=== PATIENT | male | born 1990 | race Caucasian/White ===

== ENCOUNTER → 2016-11-06 | Outpatient (CLI) | payer OTHER ==
[~2016-11-06] MED LIST: CLON1TAB3 PO; HYOS1TAB PO; NRN100 PO; ONDA4TAB10 SL; OXYC1TAB3 PO
--- NOTE | 2016-11-06 16:36 | DIAGNOSTIC IMAGING REPORT ---
LEFT CLAVICLE RADIOGRAPHS CLINICAL HISTORY: Left shoulder injury. COMPARISON: None FINDINGS: No acute fracture of the left clavicle is identified. Alignment of the left acromioclavicular joint is anatomic. IMPRESSION: No acute fracture of the left clavicle. Electronically signed by: Don Kruse M.D. 11/06/2016 4:34 PM Dictated Date/Time: 11/06/2016 4:31 PM
--- NOTE | 2016-11-06 16:37 | DIAGNOSTIC IMAGING REPORT ---
LEFT SHOULDER MIN 2 VIEWS ROUTINE CLINICAL HISTORY: Shoulder injury. COMPARISON: None FINDINGS: Alignment of the left shoulder is anatomic. There is no acute fracture. Minimal degenerative changes are present. IMPRESSION: No acute fracture or dislocation of the left shoulder. Electronically signed by: Don Kruse M.D. 11/06/2016 4:35 PM Dictated Date/Time: 11/06/2016 4:34 PM
== END | disposition home or self-care (01) ==
LOC: C.RAD 15:57
PROVIDERS: ATTEND Registered Nurse
DX: S49.92XA Unspecified injury of left shoulder and upper arm, initial encounter (principal); X58.XXXA Exposure to other specified factors, initial encounter

== ENCOUNTER 2017-05-04 18:19 | Emergency (ER) | payer BC, OTHER ==
[~2017-05-04] VITALS: Ht 172.7 cm; Wt 81.0 kg
[2017-05-04 18:28] VITALS: TEMP 36.7; Ht 172.7 cm; Wt 81.0 kg
[2017-05-04] MEDS ORDERED: NRN100 PO (18:36)
[2017-05-04] MEDS ORDERED: CLON1TAB3 PO (18:36)
[2017-05-04] MEDS ORDERED: IBUPROFEN 600 MG TAB PO STA (18:40)
[2017-05-04] MEDS ORDERED: OXYCODONE HCL IR 5 MG TAB (IMMEDIATE RELEASE) PO STA (18:40)
--- NOTE | 2017-05-04 20:01 | DIAGNOSTIC IMAGING REPORT ---
RIGHT FOREARM 2 VIEWS ROUTINE CLINICAL HISTORY: Right forearm pain status post trauma COMPARISON: None. DISCUSSION: No fractures or dislocations are visualized. IMPRESSION: No fractures identified. Electronically signed by: Johny Andersen M.D. 05/04/2017 8:00 PM Dictated Date/Time: 05/04/2017 7:59 PM
--- NOTE | 2017-05-04 20:02 | DIAGNOSTIC IMAGING REPORT ---
RIGHT HAND MIN 3 VIEWS ROUTINE CLINICAL HISTORY: Right hand pain status post trauma COMPARISON: 05/18/2016 DISCUSSION: The bony mineralization appears normal. No fractures or dislocations are visualized. There is no erosive disease. IMPRESSION: No fractures or dislocations identified. Electronically signed by: Johny Andersen M.D. 05/04/2017 8:00 PM Dictated Date/Time: 05/04/2017 8:00 PM
[2017-05-04] MEDS ORDERED: OXYC1TAB3 PO (20:21)
[2017-05-04] MEDS ORDERED: OXYCODONE IR HOME PACK PO ONE (20:48)
[2017-05-04 20:53] VITALS: BP 122/83; PULSE 74; O2SAT 98
--- NOTE | 2017-05-04 20:53 | EMERGENCY ROOM VISIT NOTE ---
History First contact with patient: 18:33 Chief Complaint: HAND PAIN/INJURY Stated Complaint: RIGHT THUMB, WRIST , LUMB FELL ON IT, WC History of Present Illness The patient is a 27 year old male who presents to the Emergency Room with complaints of an injury after a tree limb fell onto his right forearm, wrist and hand region. 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 As they were trimming some of the limbs off, it came backward and struck the patient. The patient reports that as time continued, his pain also continue to worsen. He now reports paresthesias or numbness of the fingers, as well as stiffness and difficulty flexing and extending the fingers. He denies any elbow or shoulder pain. The patient is [id number]. He rates his discomfort a 10 out of 10. He has not taken any medicine for the pain. Review of Systems 10 system review was performed and was negative except for pertinent positives and negatives as indicated in history of present illness Past Medical/Surgical History Medical Problems: (1) Thumb pain Family History Cancer Heart disease Social History Smoking Status: Never Smoker Alcohol Use: none Drug Use: none Marital Status: in relationship Housing Status: lives with family Occupation Status: unemployed Current/Historical Medications Scheduled Clonazepam (Klonopin), 1 TAB PO TID Gabapentin (Gabapentin), 200 MG PO TID Scheduled PRN Oxycodone Ir (Roxicodone Ir), 1-2 TAB PO Q4H PRN for Pain Allergies Coded Allergies: No Known Allergies (Unverified , 09/30/16) Physical Exam Vital Signs Date Time Temp Pulse Resp B/P (MAP) Pulse Ox O2 Delivery O2 Flow Rate FiO2 05/04/17 18:28 36.7 84 18 121/86 96 Physical Exam CONSTITUTIONAL: Healthy and well nourished. Alert and oriented X 3 with positive affect. Patient appears in moderate discomfort from pain. HEENT: Normocephalic, atraumatic. Pupils equal, round and reactive. NECK: Full active range of motion without discomfort. MUSCULOSKELETAL: Examination of the right upper extremity shows edema and a small abrasion over the dorsal distal third of the forearm. He also has generalized tenderness to palpation about the entire wrist and hand, focus mostly over the thumb region. No obvious deformities or puncture wounds noted. The patient has no tenderness to palpation of the phalanges. Capillary refill of the fingers is less than 2 seconds. INTEGUMENTARY: No rash or other significant dermatologic conditions noted. NEUROLOGIC: Right hand and fingers are grossly sensory intact. Medical Decision & Procedures ER Provider Diagnostic Interpretation: My interpretation of right forearm and hand x-rays does not show any acute fractures or dislocations. Radiologist reports were reviewed with concurrence. Medications Administered Medications (Trade) Dose Ordered Sig/Abhinav Route Start Time Stop Time Status Last Admin Dose Admin Oxycodone HCl (Roxicodone Immediate Rel Tab) 5 mg NOW STAT PO 05/04/17 18:40 05/04/17 18:42 DC 05/04/17 19:10 5 MG Ibuprofen (Motrin Tab) 600 mg NOW STAT PO 05/04/17 18:40 05/04/17 18:42 DC 05/04/17 19:10 600 MG ED Course Patient history and physical exam were performed. Nurse's notes were reviewed. Vital signs were reviewed and normal. The patient was administered OxyIR 5 mg and Motrin 600 mg. X-rays of the right forearm and hand were normal. The patient was encouraged to intermittently apply ice to areas of discomfort. A Velcro thumb spica splint was applied. The patient was instructed to follow-up with his Worker's Compensation approved orthopedic surgeon for further reevaluation and management. The patient was instructed to alternate ibuprofen and Tylenol for baseline pain relief. He received a home pack and prescription for OxyIR 5 mg as needed for breakthrough pain. No drinking alcohol or driving while taking OxyIR. The patient voiced understanding of all discharge instructions, was happy with plan of care, and rated his pain a 5 out of 10 at the conclusion of my exam. Medical Decision [place] Drug Monitoring Program Search Results: patient reviewed within database, no issues identified Impression Primary Impression: Contusion of right wrist Additional Impressions: Contusion of right hand Contusion of right forearm Work related injury Departure Information Prescriptions Oxycodone Ir (Roxicodone Ir) 5 Mg Tab 1-2 TAB PO Q4H Y for Pain, #15 TAB For Initial Treatment Prov: Santhosh Kinney PA 05/04/17 Referrals No Doctor, Assigned (PCP) Patient Instructions [facility] Problem Qualifiers
== END 2017-05-04 20:54 | disposition home or self-care (01) ==
LOC: C.EDB 18:21 → C.EDD 20:54
DX: S60.211A Contusion of right wrist, initial encounter (principal); S60.221A Contusion of right hand, initial encounter; S50.11XA Contusion of right forearm, initial encounter; Y99.0 Civilian activity done for income or pay; W20.8XXA Other cause of strike by thrown, projected or falling object, initial encounter

== ENCOUNTER 2017-07-25 12:07 | Emergency (ER) | payer OTHER ==
[~2017-07-25] VITALS: Ht 172.7 cm; Wt 85.8 kg
[~2017-07-25 12:07] MED LIST changes: -HYOS1TAB PO; -ONDA4TAB10 SL
[2017-07-25 12:09] VITALS: TEMP 37; Ht 172.7 cm; Wt 85.8 kg
[2017-07-25] MEDS ORDERED: KETOROLAC TROMETHAMINE 60 MG/2 ML VIAL IM ONE (12:30)
[2017-07-25] MEDS ORDERED: DEXAMETHASONE SOD INJ 4 MG/ML VIAL IM ONE (12:30)
--- NOTE | 2017-07-25 12:33 | EMERGENCY ROOM VISIT NOTE ---
History First contact with patient: 12:23 Chief Complaint: HIP PAIN Stated Complaint: L HIP/KNEE PAIN History of Present Illness The patient is a 27 year old male who presents to the Emergency Room with complaints of lower back pain radiating to his left hip and down his left leg. The patient was trying to lift a transmission last night when he felt a pull in his back. He also thinks that he felt a pop in the left knee. The knee hurts with weightbearing. He tried Tylenol for pain with minimal relief. He denies any numbness, tingling or weakness. No urinary or bowel incontinence. He does have a history of back problems. Review of Systems 6 system review negative. Please see pertinent positives in the history of present illness section. Past Medical/Surgical History Medical Problems: (1) Thumb pain Family History Cancer Heart disease Social History Smoking Status: Current Every Day Smoker Alcohol Use: none Drug Use: none Marital Status: in relationship Housing Status: lives with family Occupation Status: unemployed Current/Historical Medications Scheduled Clonazepam (Klonopin), 1 TAB PO TID Cyclobenzaprine Hcl (Flexeril), 10 MG PO TID Gabapentin (Gabapentin), 200 MG PO TID Methylprednisolone (Medrol Dosepak), 0 PO DAILY Scheduled PRN Oxycodone Ir (Roxicodone Ir), 1-2 TAB PO Q4H PRN for Pain Physical Exam Vital Signs Date Time Temp Pulse Resp B/P (MAP) Pulse Ox O2 Delivery O2 Flow Rate FiO2 07/25/17 14:59 77 16 111/70 97 07/25/17 12:09 37.0 76 18 139/92 98 Room Air Physical Exam Exam is limited due to the patient not cooperating VITALS: Vitals are noted on the nurse's note and reviewed by myself. Vital signs stable. GENERAL: 27-year-old male lying on his right side,, in no acute distress, SKIN: The skin was without rashes, erythema, edema, or bruising. HEAD: Normocephalic atraumatic. MUSCULOSKELETAL: Mild tenderness over the lumbar spinous processes and left SI joint. Negative straight leg test. Pain with flexion and extension of the left knee. No edema noted. No ligamentous instability. Distal pulses intact. No tenderness to palpation over the left hip. NEURO: Patient was alert and oriented to person place and time. Normal sensation to touch. No focal neurological deficits. Medical Decision & Procedures ER Provider Diagnostic Interpretation: lumbar xray IMPRESSION: Normal lumbar spine. Knee x-ray IMPRESSION: No acute osseous injury of the left knee. Medications Administered Medications (Trade) Dose Ordered Sig/Abhinav Route Start Time Stop Time Status Last Admin Dose Admin Ketorolac Tromethamine (Toradol Inj) 60 mg ONE ONCE IM 07/25/17 12:30 07/25/17 12:31 DC 07/25/17 12:37 60 MG Dexamethasone Sodium Phosphate (Decadron Inj) 10 mg NOW ONCE IM 07/25/17 12:30 07/25/17 12:31 DC 07/25/17 12:30 10 MG ED Course The patient was seen and examined He was given Toradol 60 mg IM and Decadron 10 mg IM Imaging was performed and reviewed Upon reevaluation, the patient was sleeping. I woke him and we reviewed his workup. He voiced understanding. I searched the patient's prescription records in the [place] Discharge instructions were reviewed, the patient was discharged in good condition Medical Decision Differential diagnosis: Spine fracture, ligamentous injury, subluxation, spondylolisthesis, spondylosis, herniated disc, contusion, muscle spasm, knee contusion, fracture, ligamentous injury This patient is a 27-year-old male that presents the emergency department with lower back pain down his left leg and pain in the left knee after lifting a heavy object yesterday. He has chronic back problems. His exam was unremarkable. There are no signs of cauda equina syndrome. He reports not having imaging in the last several years. Imaging of the back was performed. No allergies were noted. Imaging of the left knee also were performed, and normal. The patient was given a short course of narcotics and muscle relaxant. He was instructed to not perform any strenuous activity until his back is feeling better. He'll follow-up with his primary care physician for recheck. This chart was completed in part utilizing [employer] Speech Voice Recognition software. Attempts were made to minimize the grammatical errors, random word insertions, pronoun errors and incomplete sentences. Any formal questions or concerns about the content, text or information contained within the body of this dictation should be directly addressed to the provider for clarification. [place] Drug Monitoring Program Search Results: patient reviewed within database Medication Reconcilliation Current Medication List: was personally reviewed by me Impression Primary Impression: Back pain Departure Information Dispostion Home / Self-Care Condition GOOD Prescriptions Methylprednisolone (MEDROL DOSEPAK) 4 Mg Jose 0 PO DAILY, #1 PKT Prov: Zandra Moralez PA-C 07/25/17 Oxycodone Ir (Roxicodone Ir) 5 Mg Tab 1-2 TAB PO Q4H Y for Pain, #12 TAB For Initial Treatment Prov: Zandra Moralez PA-C 07/25/17 Cyclobenzaprine Hcl (FLEXERIL) 10 Mg Tab 10 MG PO TID for Muscle Spasms, #30 TAB Prov: Zandra Moralez PA-C 07/25/17 Referrals No Doctor, Assigned (PCP) Patient Instructions Low Back Pain Self Care, My [facility] Additional Instructions Tylenol and ibuprofen for pain Ibuprofen 800 mg and/or Tylenol 1000 mg every 8 hours. You may also alternate these medications for more effective pain relief: Ibuprofen --4 HRS--> Tylenol --4 HRS--> ibuprofen --4 HRS--> Tylenol .... Oxycodone for severe pain Oxycodone Immediate Release (OxyIR) 5mg: Take 1-2 pills every four hours for pain. Avoid alcohol, operating machinery or dangerous equipment, working on ladders or roofs, DRIVING, or situations where being under the influence may be dangerous. It is recommended to use an [id number] stool softener such as Colace, 100mg twice daily while taking this medication to avoid constipation. Flexeril every 8 hours as needed for muscle spasms. Please do not drink alcohol or drive or taking this medication. Ice over the lower back over the next 48 hours. Lying on a hard surface may help with the pain. No strenuous activity until your back is feeling better Return to the emergency department if you have any of the following symptoms: -Problems with urination -Weakness in your legs -Chest pain -Shortness of breath -Worsening pain Please follow-up with your primary care physician next 2-3 days.
--- NOTE | 2017-07-25 14:16 | DIAGNOSTIC IMAGING REPORT ---
L KNEE 3 VIEWS CLINICAL HISTORY: 27 years-old Male presenting with L knee pain, hurt knee lifting a heavy object. TECHNIQUE: Frontal, lateral, and sunrise views of the left knee were obtained. COMPARISON: None. FINDINGS: No acute fracture or malalignment. Trace knee joint effusion may be present. No patellar subluxation. No radiographic soft tissue abnormality. IMPRESSION: No acute osseous injury of the left knee. Electronically signed by: Srinivasa Henson M.D. 07/25/2017 2:14 PM Dictated Date/Time: 07/25/2017 2:14 PM
[2017-07-25] MEDS ORDERED: METH4PAK PO (14:35)
[2017-07-25] MEDS ORDERED: OXYC1TAB3 PO (14:35)
[2017-07-25] MEDS ORDERED: CYCL10TA6 PO (14:35)
--- NOTE | 2017-07-25 14:35 | DIAGNOSTIC IMAGING REPORT ---
L-SPINE MIN 4 VIEWS ROUTINE CLINICAL HISTORY: 27 years-old Male presenting with lumbar back pain down L leg. TECHNIQUE: Frontal, lateral, bilateral oblique, and coned in lateral views lumbar spine were obtained. COMPARISON: 06/04/2015. FINDINGS: Normal lumbar lordosis. Vertebral bodies maintain normal height and alignment. Intervertebral disc spaces preserved. No radiographic evidence of acute fracture or subluxation. No significant degenerative change. No radiographic evidence of neural foraminal narrowing. No scoliosis. Nonobstructive bowel gas pattern. IMPRESSION: Normal lumbar spine. Electronically signed by: Srinivasa Henson M.D. 07/25/2017 2:34 PM Dictated Date/Time: 07/25/2017 2:32 PM
[2017-07-25 14:59] VITALS: BP 111/70; PULSE 77; O2SAT 97
== END 2017-07-25 14:59 | disposition home or self-care (01) ==
LOC: C.EDB 12:07 → C.EDD 14:59
DX: M54.5 Low back pain (principal); F17.200 Nicotine dependence, unspecified, uncomplicated; Z79.899 Other long term (current) drug therapy; Z80.9 Family history of malignant neoplasm, unspecified; Z82.49 Family history of ischemic heart disease and other diseases of the circulatory system

== ENCOUNTER 2017-09-27 13:00 | Emergency (ER) | payer OTHER ==
[~2017-09-27] VITALS: Ht 172.7 cm; Wt 90.0 kg
[2017-09-27 13:03] VITALS: TEMP 36.5; Ht 172.7 cm; Wt 90.0 kg
[2017-09-27] MEDS ORDERED: MoRPHine SULFATE 4 MG/ML 1 ML CARP\\VIAL IV STA ×2 (13:47→15:32)
[2017-09-27] MEDS ORDERED: ONDANSETRON INJ 2 MG/ML 2 ML VIAL IV STA (13:47)
[2017-09-27] MEDS ORDERED: OPTIRAY 320 IV PRN (14:00)
[2017-09-27 14:25] LABS: URINE APPEARANCE CLEAR (CLEAR); URINE BILIRUBIN NEG (NEG); URINE COLOR YELLOW; URINE NITRITE NEG (NEG); URINE SPECIFIC GRAVITY 1.009 (1.000-1.030); UROBILINOGEN NEG (NEG)
[2017-09-27 14:27] LABS: BASO % 0.5 %; BASO ABS # 0.03 K/uL (0-0.2); COMPLETE YES; EOS % 2.2 %; HEMATOCRIT 45.6 % (42-52); IG% 0.6 %; LYMPH % 20.9 %; LYMPH ABS # 1.36 K/uL (1.2-3.4); MEAN CELL VOLUME 89.6 fL (80-100); MEAN CORPUSCULAR HEMOGLOBIN 31.2 pg (25-34); MEAN CORPUSCULAR HGB CONC 34.9 g/dl (32-36); MEAN PLATELET VOLUME 10.1 fL (7.4-10.4); MONO % 6.9 %; NEUT % 68.9 %; PLATELET COUNT 224 K/uL (130-400); RED BLOOD COUNT 5.09 M/uL (4.7-6.1); WHITE BLOOD COUNT 6.51 K/uL (4.8-10.8)
[2017-09-27 14:31] LABS: MANUAL MICROSCOPIC REQUIRED? NO; REVIEW REQ? NO
[2017-09-27 14:44] LABS: BUN/CREATININE RATIO 13.6 (10-20); CREATININE 1.03 mg/dl (0.60-1.40); POTASSIUM 3.4 mmol/L (3.5-5.1)
--- NOTE | 2017-09-27 15:28 | DIAGNOSTIC IMAGING REPORT ---
CT ABD/PELVIS IV CONTRAST ONLY CLINICAL HISTORY: Left lower quadrant abdominal pain. Nausea vomiting diarrhea. Left flank pain. COMPARISON STUDY: 09/30/2016 TECHNIQUE: Following the IV administration of 92 mL of Optiray-320, CT scan of the abdomen and pelvis was performed from the lung bases to the proximal femurs. Images are reviewed in the axial, sagittal, and coronal planes. IV contrast was administered without complication. A dose lowering technique was utilized adhering to the principles of ALARA. CT DOSE: 732.70 mGycm FINDINGS: Lower chest: There are bibasal atelectatic changes. Liver: The contrast-enhanced liver is normal in size, contour, and attenuation. There is no intrahepatic biliary ductal dilatation. The hepatic veins and portal veins are patent. Gallbladder: Unremarkable. Spleen: Normal in size and attenuation. Pancreas: Unremarkable. Adrenal glands: Unremarkable. Kidneys: There is a 9 mm left renal cyst. There is no hydronephrosis. Bowel: There are no transition zones indicate bowel obstruction. The appendix appears normal. A fluid collection within the rectosigmoid, likely represents eccentric liquefied stool as opposed to a fluid collection within the colonic wall. There are no findings to indicate acute diverticulitis. Equivocal pericolonic fat stranding at the level of the distal descending colon is too subtle to be considered a true finding. Peritoneum: There is no intraperitoneal free air or abdominal ascites. Vasculature: The abdominal aorta is normal in course and caliber. Adenopathy: None. Pelvic viscera: The bladder, and pelvic viscera are unremarkable. Skeletal structures: No destructive osseous lesions are seen. IMPRESSION: 1. No evidence of bowel obstruction. No evidence of free air. 2. Normal appendix 3. No evidence of hydronephrosis. No ureteral or bladder calculi are visualized 4. The bowel wall within the descending colon and sigmoid is at the upper limits of normal in thickness. Equivocal subtle pericolonic fat stranding at the level of the distal descending colon is too subtle to be considered a definite finding. There is currently no convincing evidence of acute diverticulitis. Electronically signed by: Johny Andersen M.D. 09/27/2017 3:27 PM Dictated Date/Time: 09/27/2017 3:20 PM
[2017-09-27] MEDS ORDERED: METR-163 PO (16:00)
[2017-09-27] MEDS ORDERED: OXYC1TAB3 PO (16:00)
[2017-09-27] MEDS ORDERED: CIPR-255 PO (16:00)
[2017-09-27] MEDS ORDERED: HYDROmorphone INJ 0.5 MG/0.5 ML SYR IV STA (16:01)
[2017-09-27] MEDS ORDERED: CIPROFLOXACIN 500 MG TAB PO STA (16:02)
[2017-09-27] MEDS ORDERED: METRONIDAZOLE 250 MG TAB PO STA (16:02)
--- NOTE | 2017-09-27 16:12 | EMERGENCY ROOM VISIT NOTE ---
History First contact with patient: 13:39 Chief Complaint: ABDOMINAL PAIN Stated Complaint: L ABD PAIN, VOMITING, BLOOD IN STOOL/VOMIT History of Present Illness The patient is a 27 year old male who presents to the Emergency Room with complaints of severe and constant left lower quadrant pain. The patient reports that he did not feel well over the weekend, feeling like he was going to get sick. He denied any upper respiratory symptoms, diarrhea or urinary symptoms. While at work this morning, he reports abrupt onset of left lower quadrant pain that is worsened with movement and bending over. He also noticed some blood in his stool this morning, and has had multiple episodes of nausea, vomiting and diarrhea this morning. The patient does report a prior history of diverticulosis. His last colonoscopy was in 2009 when he was here for diverticulosis. The patient also reports a sensation like he has to urinate all the time. He reports that the pain seems to be bouncing from the left lower abdomen to lower center of the abdomen and back. The pain does not radiate into the back or chest. The patient currently rates his discomfort a 7 out of 10. He reports that the pain is similar to the pain he had the last time he had diverticulosis. Review of Systems HEENT: Denies dizziness, visual problems, hearing loss, tinnitus. Denies difficulty swallowing or oral lesions. PULMONARY: Denies cough, shortness of breath, sputum production or hemoptysis. CARDIOVASCULAR: Denies chest pain, palpitations, dyspnea on exertion, orthopnea or peripheral edema. GASTROINTESTINAL: See history of present illness. GENITOURINARY: Denies dysuria, but does report increased frequency since this morning. NEUROLOGIC: Denies history of epilepsy, CVA, TIA or chronic headaches. MUSCULOSKELETAL: Denies history of joint tenderness/swelling. SKIN: Denies rashes or lesions. PSYCHIATRIC: Denies history of depression or mental illness. ENDOCRINE: Denies history of diabetes or thyroid disorders. Past Medical/Surgical History Medical Problems: (1) Thumb pain Family History Cancer Heart disease Social History Smoking Status: Current Every Day Smoker Alcohol Use: none Drug Use: none Marital Status: in relationship Housing Status: lives with family Occupation Status: unemployed Current/Historical Medications Scheduled Ciprofloxacin Hcl (Cipro), 500 MG PO BID Clonazepam (Klonopin), 1 TAB PO TID Gabapentin (Gabapentin), 100 MG PO TID Metronidazole (Flagyl), 500 MG PO TID Scheduled PRN Oxycodone Ir (Roxicodone Ir), 1-2 TAB PO Q4H PRN for Pain Physical Exam Vital Signs Date Time Temp Pulse Resp B/P (MAP) Pulse Ox O2 Delivery O2 Flow Rate FiO2 09/27/17 15:22 62 18 117/72 94 Room Air 09/27/17 13:03 36.5 78 18 127/84 98 Room Air Physical Exam CONSTITUTIONAL: Healthy and well nourished. Alert and oriented X 3 with positive affect. Patient appears in moderate discomfort. HEENT: Normocephalic, atraumatic. Pupils equal, round and reactive. Sclerae icterus or conjunctival pallor. NECK: Full active range of motion without discomfort. RESPIRATORY: Clear to auscultation bilaterally with no wheezing, crackles, rhonchi or stridor. CARDIOVASCULAR: Regular rate and rhythm with no murmurs, rubs or gallops. GASTROINTESTINAL: Bowel sounds present in all quadrants. Patient has left lower quadrant tenderness to palpation without rigidity, guarding or rebound. Negative CVA tenderness. Negative McBurney's point tenderness. MUSCULOSKELETAL: Full range of motion of all joints without discomfort. INTEGUMENTARY: No rash or other significant dermatologic conditions noted. HEMATOLOGIC: No ecchymosis or petechiae noted. NEUROLOGIC: No focal neurologic deficits noted. Medical Decision & Procedures ER Provider Diagnostic Interpretation: CT of the abdomen and pelvis with IV contrast only shows an acute colitis of the descending colon without convincing evidence for diverticulitis. There is an equivocal subtle pericolonic fat stranding at the level of the distal descending colon. Appendix appears normal, and no evidence of bowel obstruction or free air. Radiologist report is as follows: CT ABD/PELVIS IV CONTRAST ONLY CLINICAL HISTORY: Left lower quadrant abdominal pain. Nausea vomiting diarrhea. Left flank pain. COMPARISON STUDY: 09/30/2016 TECHNIQUE: Following the IV administration of 92 mL of Optiray-320, CT scan of the abdomen and pelvis was performed from the lung bases to the proximal femurs. Images are reviewed in the axial, sagittal, and coronal planes. IV contrast was administered without complication. A dose lowering technique was utilized adhering to the principles of ALARA. CT DOSE: 732.70 mGycm FINDINGS: Lower chest: There are bibasal atelectatic changes. Liver: The contrast-enhanced liver is normal in size, contour, and attenuation. There is no intrahepatic biliary ductal dilatation. The hepatic veins and portal veins are patent. Gallbladder: Unremarkable. Spleen: Normal in size and attenuation. Pancreas: Unremarkable. Adrenal glands: Unremarkable. Kidneys: There is a 9 mm left renal cyst. There is no hydronephrosis. Bowel: There are no transition zones indicate bowel obstruction. The appendix appears normal. A fluid collection within the rectosigmoid, likely represents eccentric liquefied stool as opposed to a fluid collection within the colonic wall. There are no findings to indicate acute diverticulitis. Equivocal pericolonic fat stranding at the level of the distal descending colon is too subtle to be considered a true finding. Peritoneum: There is no intraperitoneal free air or abdominal ascites. Vasculature: The abdominal aorta is normal in course and caliber. Adenopathy: None. Pelvic viscera: The bladder, and pelvic viscera are unremarkable. Skeletal structures: No destructive osseous lesions are seen. IMPRESSION: 1. No evidence of bowel obstruction. No evidence of free air. 2. Normal appendix 3. No evidence of hydronephrosis. No ureteral or bladder calculi are visualized 4. The bowel wall within the descending colon and sigmoid is at the upper limits of normal in thickness. Equivocal subtle pericolonic fat stranding at the level of the distal descending colon is too subtle to be considered a definite finding. There is currently no convincing evidence of acute diverticulitis. Laboratory Results 09/27/17 14:00 Red Blood Count 5.09, Mean Corpuscular Volume 89.6, Mean Corpuscular Hemoglobin 31.2, Mean Corpuscular Hemoglobin Concent 34.9, Mean Platelet Volume 10.1, Neutrophils (%) (Auto) 68.9, Lymphocytes (%) (Auto) 20.9, Monocytes (%) (Auto) 6.9, Eosinophils (%) (Auto) 2.2, Basophils (%) (Auto) 0.5, Neutrophils # (Auto) 4.49, Lymphocytes # (Auto) 1.36, Monocytes # (Auto) 0.45, Eosinophils # (Auto) 0.14, Basophils # (Auto) 0.03 09/27/17 14:00 Test 09/27/17 14:00 White Blood Count 6.51 K/uL (4.8-10.8) Red Blood Count 5.09 M/uL (4.7-6.1) Hemoglobin 15.9 g/dL (14.0-18.0) Hematocrit 45.6 % (42-52) Mean Corpuscular Volume 89.6 fL (80-100) Mean Corpuscular Hemoglobin 31.2 pg (25-34) Mean Corpuscular Hemoglobin Concent 34.9 g/dl (32-36) Platelet Count 224 K/uL (130-400) Mean Platelet Volume 10.1 fL (7.4-10.4) Neutrophils (%) (Auto) 68.9 % Lymphocytes (%) (Auto) 20.9 % Monocytes (%) (Auto) 6.9 % Eosinophils (%) (Auto) 2.2 % Basophils (%) (Auto) 0.5 % Neutrophils # (Auto) 4.49 K/uL (1.4-6.5) Lymphocytes # (Auto) 1.36 K/uL (1.2-3.4) Monocytes # (Auto) 0.45 K/uL (0.11-0.59) Eosinophils # (Auto) 0.14 K/uL (0-0.5) Basophils # (Auto) 0.03 K/uL (0-0.2) RDW Standard Deviation 47.4 fL (36.4-46.3) RDW Coefficient of Variation 14.3 % (11.5-14.5) Immature Granulocyte % (Auto) 0.6 % Immature Granulocyte # (Auto) 0.04 K/uL (0.00-0.02) Urine Color YELLOW Urine Appearance CLEAR (CLEAR) Urine pH 6.0 (4.5-7.5) Urine Specific [place] 1.009 (1.000-1.030) Urine Protein NEG (NEG) Urine Glucose (UA) NEG (NEG) Urine Ketones NEG (NEG) Urine Occult Blood NEG (NEG) Urine Nitrite NEG (NEG) Urine Bilirubin NEG (NEG) Urine Urobilinogen NEG (NEG) Urine Leukocyte Esterase NEG (NEG) Anion Gap 10.0 mmol/L (3-11) Est Creatinine Clear Calc Drug Dose 117.4 ml/min Estimated GFR () 114.8 Estimated GFR (Non- 99.1 BUN/Creatinine Ratio 13.6 (10-20) Calcium Level 9.0 mg/dl (8.5-10.1) Total Bilirubin 0.5 mg/dl (0.2-1) Direct Bilirubin 0.1 mg/dl (0-0.2) Aspartate Amino Transf (AST/SGOT) 26 U/L (15-37) Alanine Aminotransferase (ALT/SGPT) 31 U/L (12-78) Alkaline Phosphatase 58 U/L (45-117) Total Protein 8.0 gm/dl (6.4-8.2) Albumin 4.4 gm/dl (3.4-5.0) Lipase 78 U/L (73-393) The above labs were reviewed and were grossly normal. Medications Administered Medications (Trade) Dose Ordered Sig/Abhinav Route Start Time Stop Time Status Last Admin Dose Admin Ondansetron HCl (Zofran Inj) 4 mg NOW STAT IV 09/27/17 13:47 09/27/17 13:51 DC 09/27/17 13:47 4 MG Morphine Sulfate (MoRPHine SULFATE INJ) 4 mg NOW STAT IV 09/27/17 13:47 09/27/17 13:51 DC 09/27/17 13:47 4 MG Morphine Sulfate (MoRPHine SULFATE INJ) 4 mg NOW STAT IV 09/27/17 15:32 09/27/17 15:33 DC 09/27/17 15:32 4 MG ED Course Patient history and physical exam were performed. Nurse's notes were reviewed. Vital signs were reviewed and were normal. The patient appears in moderate discomfort, and is nauseated. I did suggest performing a CT scan of the abdomen and pelvis, and initially recommended both oral and IV contrast. The patient reports that he is too nauseated to tolerate oral contrast. IV access was established, and labs were drawn. The patient was administered IV morphine and Zofran. Review of labs does not show any acute findings. CT of the abdomen and pelvis with IV contrast shows a descending colitis with no convincing evidence for diverticulitis. The patient was administered an additional IV morphine after returning from CT, and IV Dilaudid prior to discharge with persistent pain. The case was further discussed with Dr. Suárez, ED attending physician, who suggested treatment with Cipro and Flagyl. Findings were discussed with the patient. The patient was administered Cipro 500 mg and Flagyl 500 mg, and will be provided prescriptions for the same and OxyIR 5 mg, dispensed #15 with no refills. The patient was encouraged to follow-up with his PCP within the next 48 hours for recheck. Return to the emergency department for any progressively worsening pain or fever. The patient voiced understanding of all discharge instructions, was happy with plan of care, and rated his discomfort a 5 out of 10 at the conclusion of my exam. Medical Decision As indicated in the previous section, the patient does have an acute colitis of the descending colon with equivocal pericolonic fat stranding. The patient will be treated with Cipro and Flagyl. I do feel that the patient is safe for outpatient management. CT does not show evidence for free air, obstruction or appendicitis. I do not suspect inguinal hernia, testicular torsion or musculoskeletal etiologies. Urinalysis is not suggestive of infection, and there is no hematuria to suggest urinary tract etiology. [employer] Monitoring Program Search Results: patient reviewed within database, no issues identified Medication Reconcilliation Current Medication List: was personally reviewed by me Blood Pressure Screening Patient's blood pressure: Normal blood pressure Impression Primary Impression: Acute colitis Departure Information Prescriptions Metronidazole (Flagyl) 500 Mg Tab 500 MG PO TID for Pain for 10 Days, #30 TAB For Initial Treatment Prov: Santhosh Kinney PA 09/27/17 Ciprofloxacin Hcl (CIPRO) 500 Mg Tab 500 MG PO BID for 10 Days, #20 TAB Prov: Santhosh Kinney PA 09/27/17 Oxycodone Ir (Roxicodone Ir) 5 Mg Tab 1-2 TAB PO Q4H Y for Pain, #15 TAB For Initial Treatment Prov: Santhosh Kinney PA 09/27/17 Referrals No Doctor, Assigned (PCP) Patient Instructions My [facility]
[2017-09-27 16:24] VITALS: BP 134/91; PULSE 64; O2SAT 97
== END 2017-09-27 16:41 | disposition home or self-care (01) ==
LOC: C.EDB 13:02 → C.EDC 16:41
DX: K52.9 Noninfective gastroenteritis and colitis, unspecified (principal); F17.200 Nicotine dependence, unspecified, uncomplicated; Z98.890 Other specified postprocedural states

== ENCOUNTER 2017-10-18 15:28 | Inpatient (IN) | payer OTHER ==
[~2017-10-18] VITALS: Ht 172.7 cm; Wt 84.9 kg
[~2017-10-18 15:28] MED LIST changes: +CIPR-255 PO; -CLON1TAB3 PO; +OXYC-90 PO; -OXYC1TAB3 PO
--- NOTE | 2017-10-18 16:07 | EMERGENCY ROOM VISIT NOTE ---
History First contact with patient: 15:43 Chief Complaint: ABDOMINAL PAIN Stated Complaint: STOMACH PAIN,DIARRHEA,VOMITING History of Present Illness The patient is a 27 year old male who presents to the Emergency Room with complaints of nausea, vomiting, diarrhea and abdominal pain that started a few hours prior to arrival. The patient describes the pain as a sharp, stabbing, constant pain in the left lower abdomen. He has not taken anything for the pain. He denies any blood in his stool. He felt hot and cold earlier. He did not take his temperature at home. The patient reports a history of diverticulitis. He just finished antibiotics 1 week ago. He denies any sick contacts. Review of Systems 10 system review performed and negative unless noted in HPI or below Past Medical/Surgical History Medical Problems: (1) Abdominal pain (2) Diarrhea (3) Nausea and vomiting (4) Thumb pain Diverticulitis Family History Cancer Heart disease Social History Smoking Status: Current Every Day Smoker Alcohol Use: none Drug Use: none Marital Status: in relationship Housing Status: lives with family Occupation Status: unemployed Current/Historical Medications Scheduled Gabapentin (Neurontin), 100 MG PO TID Scheduled PRN Clonazepam (Klonopin), 1 MG PO TID PRN for Anxiety Physical Exam Vital Signs Date Time Temp Pulse Resp B/P (MAP) Pulse Ox O2 Delivery O2 Flow Rate FiO2 10/18/17 19:45 36.7 72 16 110/69 96 Room Air 10/18/17 17:32 70 114/71 98 10/18/17 15:40 36.7 84 16 116/84 97 Room Air Physical Exam VITALS: Vitals are noted on the nurse's note and reviewed by myself. Vital signs stable. GENERAL: 27-year-old male, mildly acutely ill in appearance. SKIN: The skin was without rashes, erythema, edema, or bruising. HEAD: Normocephalic atraumatic. MOUTH: Mucous membranes slightly dry HEART: Regular rate and rhythm without murmurs gallops or rubs. LUNGS: Clear to auscultation bilaterally without wheezes, rales or rhonchi. No accessory muscle use. ABDOMEN: Bowel sounds present, but hypoactive. Tenderness to palpation in the left lower quadrant. No guarding or rebound tenderness. MUSCULOSKELETAL: No muscle atrophy, erythema, or edema noted. Strength 5/5 throughout. NEURO: Patient was alert and oriented to person place and time. Normal sensation to touch. No focal neurological deficits. Medical Decision & Procedures ER Provider Diagnostic Interpretation: Abdominal x-rays Patient Name: MONIQUE SAMANIEGO Unit Number: [id number] Dictated: 10/18/171727 Transcribed: 10/18/171727 EV Printed Date/Time: [~ rep prt dt]/[~ rep prt tm] [~ rep ct labl] - [~ rep ct ivnm] [facility] Radiology Department [place] [id number] Dictated: 10/18/171727 Transcribed: 10/18/171727 EV Printed Date/Time: [~ rep prt dt]/[~ rep prt tm] [~ rep ct labl] - [~ rep ct ivnm] IMPRESSION: 1. No active disease in the chest. 2. Nonobstructed abdominal bowel gas pattern. Electronically signed by: Dorian Mckinney M.D. 10/18/2017 5:30 PM Dictated Date/Time: 10/18/2017 5:28 PM The status of this report is Signed. Draft = Not yet reviewed or approved by Radiologist. Signed = Reviewed and approved by Radiologist. <AttendingPhy></AttendingPhy> <FamilyPhy>No Doctor, Assigned</FamilyPhy> < PrimaryPhy>No Doctor, Assigned</PrimaryPhy> <UnitNumber>[id number]</UnitNumber> <VisitNumber>[id number]</VisitNumber> <PatientName>MONIQUE SAMANIEGO</PatientName> <DateOfBirth>1990</DateOfBirth> <Location>C.EDB</Location> <ServiceDate></ServiceDate> <MNE>ESINDI</MNE> <OrderingPhy>Zandra Moralez PA-C</ OrderingPhy> <OrderingPhyMNE>f rep ord dr hall</OrderingPhyMNE> <DictatingPhyMNE> f rep dict dr hall</DictatingPhyMNE> <CCListMNE>f rep ct mne</CCListMNE> < AdmittingPhyMNE>f pt admit dr hall</AdmittingPhyMNE> <AttendingPhyMNE>f pt attend dr hall</AttendingPhyMNE> <ConsultingPhyMNE>f pt consult dr hall</ConsultingPhyMNE> <FamilyPhyMNE>f pt fam dr hall</FamilyPhyMNE> <OtherPhyMNE>f pt other dr hall</OtherPhyMNE> < PrimaryPhyMNE>f pt prim care dr hall</PrimaryPhyMNE> <ReferringPhyMNE>f pt referring dr hall</ReferringPhyMNE> CT abdomen and pelvis with IV contrast IMPRESSION: There are no acute infectious or inflammatory findings in the abdomen or pelvis. Electronically signed by: Dorian Mckinney M.D. 10/18/2017 6:31 PM Dictated Date/Time: 10/18/2017 6:27 PM The status of this report is Signed. Draft = Not yet reviewed or approved by Radiologist. Signed = Reviewed and approved by Radiologist. <AttendingPhy></AttendingPhy> <FamilyPhy>No Doctor, Assigned</FamilyPhy> < PrimaryPhy>No Doctor, Assigned</PrimaryPhy> <UnitNumber>[id number]</UnitNumber> <VisitNumber>[id number]</VisitNumber> <PatientName>MONIQUE SAMANIEGO Laboratory Results 10/18/17 16:18 Red Blood Count 5.20, Mean Corpuscular Volume 91.9, Mean Corpuscular Hemoglobin 31.5, Mean Corpuscular Hemoglobin Concent 34.3, Mean Platelet Volume 10.4, Neutrophils (%) (Auto) 84.9, Lymphocytes (%) (Auto) 9.1, Monocytes (%) (Auto) 4.5, Eosinophils (%) (Auto) 0.7, Basophils (%) (Auto) 0.2, Neutrophils # (Auto) 10.87, Lymphocytes # (Auto) 1.17, Monocytes # (Auto) 0.58, Eosinophils # (Auto) 0.09, Basophils # (Auto) 0.03 10/18/17 16:18 Test 10/18/17 16:18 10/18/17 18:36 10/18/17 19:37 White Blood Count 12.82 K/uL (4.8-10.8) Red Blood Count 5.20 M/uL (4.7-6.1) Hemoglobin 16.4 g/dL (14.0-18.0) Hematocrit 47.8 % (42-52) Mean Corpuscular Volume 91.9 fL (80-100) Mean Corpuscular Hemoglobin 31.5 pg (25-34) Mean Corpuscular Hemoglobin Concent 34.3 g/dl (32-36) Platelet Count 219 K/uL (130-400) Mean Platelet Volume 10.4 fL (7.4-10.4) Neutrophils (%) (Auto) 84.9 % Lymphocytes (%) (Auto) 9.1 % Monocytes (%) (Auto) 4.5 % Eosinophils (%) (Auto) 0.7 % Basophils (%) (Auto) 0.2 % Neutrophils # (Auto) 10.87 K/uL (1.4-6.5) Lymphocytes # (Auto) 1.17 K/uL (1.2-3.4) Monocytes # (Auto) 0.58 K/uL (0.11-0.59) Eosinophils # (Auto) 0.09 K/uL (0-0.5) Basophils # (Auto) 0.03 K/uL (0-0.2) RDW Standard Deviation 49.3 fL (36.4-46.3) RDW Coefficient of Variation 14.5 % (11.5-14.5) Immature Granulocyte % (Auto) 0.6 % Immature Granulocyte # (Auto) 0.08 K/uL (0.00-0.02) Anion Gap 7.0 mmol/L (3-11) Est Creatinine Clear Calc Drug Dose 109.9 ml/min Estimated GFR () 108.4 Estimated GFR (Non- 93.6 BUN/Creatinine Ratio 16.8 (10-20) Calcium Level 9.5 mg/dl (8.5-10.1) Total Bilirubin 0.6 mg/dl (0.2-1) Aspartate Amino Transf (AST/SGOT) 21 U/L (15-37) Alanine Aminotransferase (ALT/SGPT) 31 U/L (12-78) Alkaline Phosphatase 57 U/L (45-117) Total Protein 8.7 gm/dl (6.4-8.2) Albumin 5.1 gm/dl (3.4-5.0) Globulin 3.6 gm/dl (2.5-4.0) Albumin/Globulin Ratio 1.4 (0.9-2) Lipase 106 U/L (73-393) Urine Color YELLOW Urine Appearance CLEAR (CLEAR) Urine pH 5.0 (4.5-7.5) Urine Specific [place] 1.044 (1.000-1.030) Urine Protein NEG (NEG) Urine Glucose (UA) NEG (NEG) Urine Ketones NEG (NEG) Urine Occult Blood NEG (NEG) Urine Nitrite NEG (NEG) Urine Bilirubin NEG (NEG) Urine Urobilinogen NEG (NEG) Urine Leukocyte Esterase NEG (NEG) Lactic Acid Level 0.9 mmol/L (0.4-2.0) Date/Time Source Procedure Growth Status 10/18/17 19:50 Stool C.difficile Toxin B Gene (PCR) - Final Positive for C. difficile toxin B gene Complete Medications Administered Medications (Trade) Dose Ordered Sig/Abhinav Route Start Time Stop Time Status Last Admin Dose Admin Ondansetron HCl (Zofran Inj) 4 mg Q2H PRN IV 10/18/17 16:15 11/17/17 16:14 10/18/17 16:21 4 MG Sodium Chloride 1,000 ml @ 999 mls/hr Q1H1M ONCE IV 10/18/17 16:15 10/18/17 17:15 DC 10/18/17 16:22 999 MLS/HR Morphine Sulfate (MoRPHine SULFATE INJ) 4 mg Q1H PRN IV 10/18/17 16:15 11/01/17 16:14 10/18/17 16:22 4 MG Dicyclomine HCl (Bentyl Tab) 20 mg ONE ONCE PO 10/18/17 16:15 10/18/17 16:16 DC 10/18/17 16:22 20 MG Hydromorphone HCl (Dilaudid Inj) 1 mg ONE ONCE IV 10/18/17 17:45 10/18/17 17:46 DC 10/18/17 17:45 1 MG Hydromorphone HCl (Dilaudid Inj) 1 mg ONE ONCE IV 10/18/17 19:30 10/18/17 19:31 DC 10/18/17 19:47 1 MG ED Course Patient was seen and examined Vital signs including blood pressure were reviewed medications list was verified with patient Labs were obtained, and a saline lock was established The patient was medicated with Zofran, morphine and Bentyl He was hydrated with 1 L of normal saline. Imaging was performed and reviewed Upon reevaluation, the patient was still having pain. He was given Dilaudid 1 mg IV. We discussed the results of his workup. The case was also discussed my supervising physician A CT of the abdomen and pelvis was performed and reviewed The patient was still complaining of pain, and medicated with an additional dose of Dilaudid. We discussed the results of his workup. He voiced understanding. The case was discussed with case management. It was then discussed with Hiram mccurdy, who kindly agreed to keep the patient for further workup and treatment. Medical Decision DIFFERENTIAL DIAGNOSIS: Gastroenteritis, Hepatitis, cholecystitis, cholangitis, biliary colic, pancreatitis, appendicitis, inguinal hernia, nephrolithiasis, inflammatory bowel disease, mesenteric adenitis, peptic ulcer disease, GERD, gastritis, pancreatitis,, bowel obstruction, splenic infarct, diverticulitis, mesenteric ischemia, metabolic, peritonitis, among others. This patient is a 27-year-old male presents emergency department with nausea, vomiting, diarrhea and abdominal pain. On exam, he was tender in the left lower quadrant. There is leukocytosis. I ordered a CT scan to rule out a developing abscess. This did not show any acute abnormalities. The patient's C. difficile came back positive. Unfortunately was not able to get the patient' s pain under control. For these reasons, the patient will be kept in the hospital for further workup and treatment. He is in agreement with this plan. This chart was completed in part utilizing [employer] Speech Voice Recognition software. Attempts were made to minimize the grammatical errors, random word insertions, pronoun errors and incomplete sentences. Any formal questions or concerns about the content, text or information contained within the body of this dictation should be directly addressed to the provider for clarification. Consults Consulting Physician: Hiram mccurdy Impression Primary Impression: C. difficile colitis Departure Information Referrals No Doctor, Assigned (PCP) [facility]
[2017-10-18] MEDS ORDERED: GABA-112 PO (16:10)
[2017-10-18] MEDS ORDERED: ONDANSETRON INJ 2 MG/ML 2 ML VIAL IV PRN (16:15)
[2017-10-18] MEDS ORDERED: SODIUM CHLORIDE 0.9% 1000ML 1,000 ML IV ONE (16:15)
[2017-10-18] MEDS ORDERED: MoRPHine SULFATE 4 MG/ML 1 ML CARP\\VIAL IV PRN (16:15)
[2017-10-18] MEDS ORDERED: DICYCLOMINE HCL 20 MG TAB PO ONE (16:15)
[2017-10-18 16:42] LABS: BASO % 0.2 %; BASO ABS # 0.03 K/uL (0-0.2); EOS % 0.7 %; EOS ABS # 0.09 K/uL (0-0.5); HEMATOCRIT 47.8 % (42-52); HEMOGLOBIN 16.4 g/dL (14.0-18.0); IG# 0.08 K/uL (0.00-0.02); LYMPH % 9.1 %; LYMPH ABS # 1.17 K/uL (1.2-3.4); MEAN CELL VOLUME 91.9 fL (80-100); MEAN CORPUSCULAR HEMOGLOBIN 31.5 pg (25-34); MEAN CORPUSCULAR HGB CONC 34.3 g/dl (32-36); MEAN PLATELET VOLUME 10.4 fL (7.4-10.4); MONO % 4.5 %; MONO ABS # 0.58 K/uL (0.11-0.59); NEUT % 84.9 %; NEUT ABS # 10.87 K/uL (1.4-6.5); PLATELET COUNT 219 K/uL (130-400); RED CELL DISTRIBUTION WIDTH CV 14.5 % (11.5-14.5); RED CELL DISTRIBUTION WIDTH SD 49.3 fL (36.4-46.3); WHITE BLOOD COUNT 12.82 K/uL (4.8-10.8)
[2017-10-18 17:01] LABS: ALBUMIN 5.1 gm/dl (3.4-5.0); CALCIUM 9.5 mg/dl (8.5-10.1); CREATININE 1.08 mg/dl (0.60-1.40)
[2017-10-18 17:03] LABS: TOTAL PROTEIN 8.7 gm/dl (6.4-8.2)
--- NOTE | 2017-10-18 17:31 | DIAGNOSTIC IMAGING REPORT ---
PA CHEST WITH ABDOMINAL SERIES CLINICAL HISTORY: Generalized abdominal pain. Nausea and vomiting. FINDINGS: A PA chest radiograph is compared to study dated 06/04/2015. The cardiomediastinal silhouette is unremarkable. There is elevation of the right hemidiaphragm with bibasilar atelectasis. No airspace consolidation or pleural effusion is identified. No pneumothorax is seen. The bony thorax is grossly intact. Supine and erect abdominal radiographs are correlated with abdominal CT dated 09/27/2017. There is a nonobstructed abdominal bowel gas pattern. No evidence of intraperitoneal free air is seen. There are no abnormal abdominal calcifications. The lumbosacral spine and bony pelvis appear intact. IMPRESSION: 1. No active disease in the chest. 2. Nonobstructed abdominal bowel gas pattern. Electronically signed by: Dorian Mckinney M.D. 10/18/2017 5:30 PM Dictated Date/Time: 10/18/2017 5:28 PM
[2017-10-18] MEDS ORDERED: HYDROmorphone INJ 1 MG/ML SYR IV ONE ×2 (17:45→19:30)
[2017-10-18] MEDS ORDERED: OPTIRAY 320 IV PRN (18:00)
--- NOTE | 2017-10-18 18:32 | DIAGNOSTIC IMAGING REPORT ---
CT SCAN OF THE ABDOMEN AND PELVIS WITH IV CONTRAST CLINICAL HISTORY: Left lower quadrant abdominal pain. Nausea and vomiting. Diarrhea. COMPARISON STUDY: Abdominal CT dated 09/27/2017. TECHNIQUE: Following the IV administration of 92 cc of Optiray 320, CT scan of the abdomen and pelvis is performed from the lung bases to the proximal femora. Images are reviewed in the axial, sagittal, and coronal planes. IV contrast was administered without complication. A dose lowering technique was utilized adhering to the principles of ALARA. CT DOSE: 483.77 mGy.cm FINDINGS: Lung bases: The heart is normal in size and without pericardial effusion. The lung bases are clear. There is a small hiatal hernia. Liver: The contrast-enhanced liver is normal in size, contour, and attenuation. There is no intrahepatic biliary ductal dilatation. The hepatic veins and portal veins are patent. Gallbladder: Unremarkable. Spleen: Normal in size and attenuation. Pancreas: Unremarkable. Adrenal glands: Unremarkable. Kidneys: The contrast enhanced kidneys are normal in size and without hydronephrosis. The kidneys enhance symmetrically. Abdominal vasculature: The abdominal aorta is normal in course and caliber. Bowel: The small bowel and colon are normal in course and caliber. Mild submucosal fat deposition is noted throughout the colon. Mild pericolonic infiltration suggested on 09/27/2017 has resolved. The appendix is well-visualized and normal. Peritoneum: There is no intraperitoneal free air or abdominal ascites. There is a small fat-containing umbilical hernia. Lymphadenopathy: None. Pelvic viscera: The bladder, prostate, and seminal vesicles are normal as visualized. Skeletal structures: No lytic or blastic lesions are seen. IMPRESSION: There are no acute infectious or inflammatory findings in the abdomen or pelvis. Electronically signed by: Dorian Mckinney M.D. 10/18/2017 6:31 PM Dictated Date/Time: 10/18/2017 6:27 PM
[2017-10-18] MEDS ORDERED: CLON1TAB4 PO (18:36)
[2017-10-18] MEDS ORDERED: ALUMINUM/MAGNESIUM/SIMETH (MAALOX MAX) 30 ML UDC PO PRN (20:15)
[2017-10-18] MEDS ORDERED: CLONAZEPAM 1 MG TAB PO PRN (20:15)
[2017-10-18] MEDS ORDERED: IV FLUIDS COMPLETED PRN (20:45)
--- NOTE | 2017-10-18 21:00 | NUR ---
OBS: Patient arrived to room 263-2 via w/c. Patient is alert and oriented x 4. Patient c/o abd pain 07/27. Patient oriented to room and call sanderson system. Full assessment complete see EMR. Call sanderson within reach. Will continue to monitor.
[2017-10-18] MEDS: KETOROLAC TROMETHAMINE 15 MG/ML VIAL IM PRN (21:06)
[2017-10-18] MEDS: SODIUM CHLORIDE 0.9% 1000ML 1,000 ML IV SCH (21:06)
[2017-10-18] MEDS: GABAPENTIN 100 MG CAP PO SCH (21:16)
[2017-10-18 21:21] VITALS: BP 144/72; PULSE 70; TEMP 36.8; O2SAT 96; Ht 172.7 cm; Wt 84.9 kg
--- NOTE | 2017-10-18 21:42 | HISTORY & PHYSICAL EXAMINATION ---
DATE OF ADMISSION: 10/18/2017 PRIMARY CARE PHYSICIAN: Dr. Razo. CHIEF COMPLAINT: Abdominal pain in the left quadrant associated with diarrhea, nausea and vomiting. HISTORY OF PRESENT COMPLAINT: He is a 27-year-old male with significant past medical history of abdominal pain, once suspected to have Crohn's disease but nothing proven. Apparently, he came in to the ER on 27 of September with left lower quadrant pain. At that time, he underwent a CAT scan that was reported as possible diverticulitis. He received antibiotic with Cipro and Flagyl since then. According to him, his symptoms did not go away completely and since yesterday he has been having severe left lower quadrant pain associated with nausea, vomiting, and diarrhea. He has had diarrhea many times today and his pain has been worse. Denies to have any fever or chills but does have weakness and tiredness and he does not feel well. He does not have any chest pain, shortness of breath, palpitation. No cough or phlegm, abdominal pain as before. No problem with urine. He denies having any dizziness or any numbness or tingling involving any of the extremities. In the ER, he was hemodynamically stable. His apparent blood count came back fairly negative except potassium of 3.1 and his CAT scan was unremarkable, but given ongoing pain and diarrhea, he was admitted to medical floor for continuation of care and rule out C. diff colitis. PAST MEDICAL HISTORY: Nothing significant except anxiety disorder and once thought of having Crohn's disease but never proven. PAST SURGICAL HISTORY: Nothing significant. FAMILY HISTORY: No family history of diabetes, hypertension or stroke. SOCIAL HISTORY: He is . He smokes about 1 pack per day. He does not drink and he has been ambulant. ALLERGIES: He has seasonal allergies but not to any medications. MEDICATIONS: As an outpatient, he has been taking Klonopin 1 mg 3 times daily as needed and Neurontin 100 mg 3 times daily for pain. REVIEW OF SYSTEMS: Other systemic review unremarkable except those mentioned in history of present complaint. PHYSICAL EXAMINATION: GENERAL: On examination in the Emergency Room, he was not having any acute distress, but he did complain of some pain in the left quadrant. VITAL SIGNS: Temperature 36.7, pulse was 72, blood pressure 110/69, saturation 96% on room air. HEENT: Unremarkable. NECK: Supple. No JVD, no bruit. CHEST: Clear to auscultation bilaterally. HEART: S1, S2 regular. No murmur appreciated. ABDOMEN: Soft with tenderness in the left quadrant, specifically left lower quadrant. No guarding and no rigidity. Bowel sounds present. EXTREMITIES: Negative for any edema. MUSCULOSKELETAL: Did not show any acute arthritis. CENTRAL NERVOUS SYSTEM: He was alert, awake, oriented x3. No focal sensory and/or motor deficit appreciated. LABORATORY DATA: Noted today white count was 12.82, H&H 16.4/47.8, platelet was 219. Sodium 136, potassium 4.0, chloride 103, carbon dioxide 26, BUN 18, creatinine 1.08, random glucose 93. Lactic acid pending. LFTs unremarkable. Lipase normal. UA examination unremarkable. CT of the abdomen and pelvis unremarkable. X-ray of the abdomen and pelvis nothing obstructing. IMPRESSION AND PLAN: 1. Abdominal pain, nausea and vomiting with diarrhea, likely secondary to Clostridium difficile colitis. We will send stool for Clostridium difficile toxins and Gram stain and culture. He will be admitted to medical floor. He will be given cautious amount of IV fluid and pain medications as needed. 2. Anxiety disorder. He has been on Klonopin and gabapentin. We will continue with those. 3. May have gastroenteritis as well. We will monitor while in the hospital and give some Maalox, Mylanta as needed. 4. Deep venous thrombosis prophylaxis with sequential compression devices. He has a very poor risk of clot formation, increased ambulation. 5. Code status. He will be a full code. In my clinical judgment, the beneficiary meets criteria as per CMS for 2 midnight stay in the hospital. RADHA
[2017-10-18] MEDS: RASPBERRY SYRUP 5 ML UDP PO SCH (23:59)
[2017-10-18] MEDS: VANCOMYCIN HCL 125 MG/2.5ML SOLN PO SCH (23:59)
--- NOTE | 2017-10-19 | NUR ---
ID/OBS: Pt. admitted with abdominal pain and diarrhea. Contact precautions in place for positive c.diff results. Pt. A+Ox4. VSS on room air. NSS infusing at 100 ml/hr per orders. Pt. independent in room. D/C date uncertain at this time.
[2017-10-19] MEDS ORDERED: NURSING VERBAL MED ORDER ONE (02:15)
[2017-10-19] MEDS: MoRPHine SULFATE 4 MG/ML 1 ML CARP\\VIAL IV PRN ×2 (02:21→10:40)
--- NOTE | 2017-10-19 04:00 | NUR ---
OBS: MD aware of pt's continued 07/27 LLQ abdominal pain. 3 mg IV morphine ordered per MD and administered. Pt. currently resting in bed with no complaints. NSS infusing at 100 ml/hr. Pt. is independent in room. Call sanderson within reach.
[2017-10-19] MEDS: VANCOMYCIN HCL 125 MG/2.5ML SOLN PO SCH ×4 (06:04→23:56)
[2017-10-19] MEDS: RASPBERRY SYRUP 5 ML UDP PO SCH ×4 (06:04→23:56)
[2017-10-19 07:41] VITALS: BP 123/80; PULSE 67; TEMP 36.7; O2SAT 97
[2017-10-19] MEDS: KETOROLAC TROMETHAMINE 15 MG/ML VIAL IM PRN (07:54)
[2017-10-19] MEDS: SODIUM CHLORIDE 0.9% 1000ML 1,000 ML IV SCH ×2 (07:54→17:33)
[2017-10-19] MEDS: GABAPENTIN 100 MG CAP PO SCH ×3 (07:55→20:25)
--- NOTE | 2017-10-19 08:00 | NUR ---
OBS Note: Pt. A&Ox4. vss. pain tolerable with IV prn pain meds. tolerates a regular diet well. IVF infusing per MD order. OOB independently. D/C planning uncertain will continue to monitor patient.
--- NOTE | 2017-10-19 10:54 | Progress Note ---
Subjective Date of Service: Oct 19, 2017. Subjective Pt evaluation today including: conversation w/ patient, physical exam, lab review, review of studies, review of inpatient medication list Saw/examined the patient in room 263 He continues to have abdominal pain +diarrhea, +nausea, +vomiting Problem List Medical Problems: (1) Acute colitis Status: Acute (2) C. difficile colitis Status: Acute (3) Contusion of right forearm Status: Acute (4) Contusion of right hand Status: Acute (5) Contusion of right wrist Status: Acute (6) Diarrhea Status: Acute (7) Lower abdominal pain Status: Acute (8) Pain of right thumb Status: Acute (9) Vomiting Status: Acute (10) Work related injury Status: Acute Review of Systems Constitutional: No fever, No chills Respiratory: No cough, No sputum, No shortness of breath Cardiac: No chest pain Abdomen: + pain, + nausea, + vomiting, + diarrhea, No constipation, No GI bleeding Heme: No abnormal bleeding/bruising Medications Current Inpatient Medications Medications (Trade) Dose Ordered Sig/Abhinav Route Start Time Stop Time Status Last Admin Dose Admin Ioversol (Optiray 320) 100 ml UD PRN IV 10/18/17 18:00 10/22/17 17:59 Clonazepam (Klonopin Tab) 1 mg TID PRN PO 10/18/17 20:15 11/17/17 20:14 Gabapentin (Neurontin Cap) 100 mg TID PO 10/18/17 21:00 11/17/17 20:59 10/19/17 07:55 100 MG Al Hydrox/Mg Hydrox/Simethicone (Maalox Max Susp) 15 ml Q6H PRN PO 10/18/17 20:15 11/17/17 20:14 Sodium Chloride 1,000 ml @ 100 mls/hr Q10H IV 10/18/17 20:30 10/20/17 02:29 10/19/17 07:54 100 MLS/HR Ondansetron HCl (Zofran Inj) 4 mg Q6H PRN IV 10/18/17 20:15 11/17/17 20:14 Miscellaneous (Iv Fluids Completed) 1 ea PRN PRN N/A 10/18/17 20:45 10/18/18 20:44 Vancomycin HCl (Vancomycin Oral Soln) 125 mg Q6H PO 10/19/17 00:00 10/29/17 00:00 10/19/17 06:04 125 MG Raspberry (Raspberry Syrup 5ml Cup) 5 ml Q6H PO 10/19/17 00:00 11/02/17 00:00 10/19/17 06:04 5 ML Morphine Sulfate (MoRPHine SULFATE INJ) 3 mg Q6H PRN IV 10/19/17 01:15 11/02/17 01:14 10/19/17 10:40 3 MG Ketorolac Tromethamine (Toradol Inj) 15 mg Q6H PRN IV. 10/19/17 08:00 10/23/17 20:14 Objective Vital Signs Date Time Temp Pulse Resp B/P (MAP) Pulse Ox O2 Delivery O2 Flow Rate FiO2 10/19/17 07:41 36.7 67 16 123/80 (94) 97 Room Air 10/19/17 00:00 Room Air 10/18/17 21:21 36.8 70 20 144/72 96 Room Air 10/18/17 20:30 74 16 118/64 98 10/18/17 19:45 36.7 72 16 110/69 96 Room Air 10/18/17 17:32 70 114/71 98 10/18/17 15:40 36.7 84 16 116/84 97 Room Air Physical Exam General Appearance: no apparent distress Respiratory/Chest: no respiratory distress, no accessory muscle use Cardiovascular: regular rate, rhythm, no edema, no murmur Abdomen: normal bowel sounds, non tender, soft Laboratory Results Last 24 Hours Test 10/18/17 16:18 10/18/17 18:36 10/18/17 19:37 White Blood Count 12.82 K/uL Red Blood Count 5.20 M/uL Hemoglobin 16.4 g/dL Hematocrit 47.8 % Mean Corpuscular Volume 91.9 fL Mean Corpuscular Hemoglobin 31.5 pg Mean Corpuscular Hemoglobin Concent 34.3 g/dl Platelet Count 219 K/uL Mean Platelet Volume 10.4 fL Neutrophils (%) (Auto) 84.9 % Lymphocytes (%) (Auto) 9.1 % Monocytes (%) (Auto) 4.5 % Eosinophils (%) (Auto) 0.7 % Basophils (%) (Auto) 0.2 % Neutrophils # (Auto) 10.87 K/uL Lymphocytes # (Auto) 1.17 K/uL Monocytes # (Auto) 0.58 K/uL Eosinophils # (Auto) 0.09 K/uL Basophils # (Auto) 0.03 K/uL RDW Standard Deviation 49.3 fL RDW Coefficient of Variation 14.5 % Immature Granulocyte % (Auto) 0.6 % Immature Granulocyte # (Auto) 0.08 K/uL Sodium Level 136 mmol/L Potassium Level 4.0 mmol/L Chloride Level 103 mmol/L Carbon Dioxide Level 26 mmol/L Anion Gap 7.0 mmol/L Blood Urea Nitrogen 18 mg/dl Creatinine 1.08 mg/dl Est Creatinine Clear Calc Drug Dose 109.9 ml/min Estimated GFR () 108.4 Estimated GFR (Non- 93.6 BUN/Creatinine Ratio 16.8 Random Glucose 93 mg/dl Calcium Level 9.5 mg/dl Total Bilirubin 0.6 mg/dl Aspartate Amino Transf (AST/SGOT) 21 U/L Alanine Aminotransferase (ALT/SGPT) 31 U/L Alkaline Phosphatase 57 U/L Total Protein 8.7 gm/dl Albumin 5.1 gm/dl Globulin 3.6 gm/dl Albumin/Globulin Ratio 1.4 Lipase 106 U/L Urine Color YELLOW Urine Appearance CLEAR Urine pH 5.0 Urine Specific [place] 1.044 Urine Protein NEG Urine Glucose (UA) NEG Urine Ketones NEG Urine Occult Blood NEG Urine Nitrite NEG Urine Bilirubin NEG Urine Urobilinogen NEG Urine Leukocyte Esterase NEG Lactic Acid Level 0.9 mmol/L Assessment and Plan This is a 27 year old male with a PMH of anxiety disorder, recent history of acute diverticulitis - presents with abdominal pain, diarrhea - found to have C. diff C. Diff Diarrhea abdominal CT and radiographs - no obstruction, no infectious or inflammatory process noted recently on Cipro and Flagyl secondary possible acute diverticulitis PO Vanco ordered QID; will likely need two weeks will alternate Toradol and morphine PRN for now diet changed to clear liquids continue IVFs Anxiety Disorder continue home medications DVT ppx SCDs, ambulation FULL CODE
[2017-10-19] MEDS: KETOROLAC TROMETHAMINE 15 MG/ML VIAL IV. PRN ×2 (13:59→20:24)
[2017-10-19 14:54] VITALS: BP 120/80; PULSE 65; TEMP 36.6; O2SAT 97
[2017-10-19] MEDS: MoRPHine SULFATE 2 MG/ML CARP IV PRN (15:50)
[2017-10-19 19:00] VITALS: O2SAT 97
[2017-10-19 22:55] VITALS: BP 111/71; PULSE 71; TEMP 36.6; O2SAT 95
[2017-10-20] VITALS: O2SAT 97
[2017-10-20] MEDS: MoRPHine SULFATE 2 MG/ML CARP IV PRN
[2017-10-20] MEDS: VANCOMYCIN HCL 125 MG/2.5ML SOLN PO SCH ×4 (06:10→23:41)
[2017-10-20] MEDS: RASPBERRY SYRUP 5 ML UDP PO SCH ×4 (06:10→23:41)
[2017-10-20] MEDS: KETOROLAC TROMETHAMINE 15 MG/ML VIAL IV. PRN ×3 (06:11→19:52)
--- NOTE | 2017-10-20 06:14 | NUR ---
ID: Here with abdominal pain, N/V/D, positive C. Dif. Morphine and Toradol IV for pain. Pleasant and cooperative. IVF completed. Voiding in urinal. Rested well overnight. Plan D/C home when stable.
[2017-10-20 06:26] LABS: HEMATOCRIT 44.1 % (42-52); MEAN CELL VOLUME 92.3 fL (80-100); MEAN CORPUSCULAR HEMOGLOBIN 31.4 pg (25-34); MEAN PLATELET VOLUME 9.9 fL (7.4-10.4); PLATELET COUNT 169 K/uL (130-400); RED CELL DISTRIBUTION WIDTH CV 14.3 % (11.5-14.5); WHITE BLOOD COUNT 4.48 K/uL (4.8-10.8)
[2017-10-20 06:55] LABS: CALCIUM 8.5 mg/dl (8.5-10.1); POTASSIUM 4.1 mmol/L (3.5-5.1)
[2017-10-20 08:23] VITALS: BP 133/82; PULSE 62; TEMP 36.5; O2SAT 98
[2017-10-20] MEDS: GABAPENTIN 100 MG CAP PO SCH ×3 (09:05→20:49)
[2017-10-20] MEDS: ONDANSETRON INJ 2 MG/ML 2 ML VIAL IV PRN (09:10)
--- NOTE | 2017-10-20 14:22 | Progress Note ---
Subjective Date of Service: Oct 20, 2017. Subjective Pt evaluation today including: conversation w/ patient, physical exam, lab review, review of studies, review of inpatient medication list Saw/examined the patient in room 263 Abdominal pain in the LUQ persists States he has not had a bowel movement since being admitted, though yesterday he told me he had diarrhea Tolerating his clears for now Problem List Medical Problems: (1) Acute colitis Status: Acute (2) C. difficile colitis Status: Acute (3) Contusion of right forearm Status: Acute (4) Contusion of right hand Status: Acute (5) Contusion of right wrist Status: Acute (6) Diarrhea Status: Acute (7) Lower abdominal pain Status: Acute (8) Pain of right thumb Status: Acute (9) Vomiting Status: Acute (10) Work related injury Status: Acute Review of Systems Constitutional: No fever, No chills Respiratory: No shortness of breath Cardiac: No chest pain Abdomen: + pain, + nausea, + vomiting, + constipation, No diarrhea, No GI bleeding Male : No dysuria, No urinary frequency Medications Current Inpatient Medications Medications (Trade) Dose Ordered Sig/Abhinav Route Start Time Stop Time Status Last Admin Dose Admin Ioversol (Optiray 320) 100 ml UD PRN IV 10/18/17 18:00 10/22/17 17:59 Clonazepam (Klonopin Tab) 1 mg TID PRN PO 10/18/17 20:15 11/17/17 20:14 Gabapentin (Neurontin Cap) 100 mg TID PO 10/18/17 21:00 11/17/17 20:59 10/20/17 13:08 100 MG Al Hydrox/Mg Hydrox/Simethicone (Maalox Max Susp) 15 ml Q6H PRN PO 10/18/17 20:15 11/17/17 20:14 Ondansetron HCl (Zofran Inj) 4 mg Q6H PRN IV 10/18/17 20:15 11/17/17 20:14 10/20/17 09:10 4 MG Miscellaneous (Iv Fluids Completed) 1 ea PRN PRN N/A 10/18/17 20:45 10/18/18 20:44 Vancomycin HCl (Vancomycin Oral Soln) 125 mg Q6H PO 10/19/17 00:00 1/12/18 00:00 10/20/17 13:13 125 MG Raspberry (Raspberry Syrup 5ml Cup) 5 ml Q6H PO 10/19/17 00:00 11/02/17 00:00 10/20/17 13:08 5 ML Ketorolac Tromethamine (Toradol Inj) 15 mg Q6H PRN IV. 10/19/17 08:00 10/23/17 20:14 10/20/17 13:07 15 MG Objective Vital Signs Date Time Temp Pulse Resp B/P (MAP) Pulse Ox O2 Delivery O2 Flow Rate FiO2 10/20/17 08:23 36.5 62 16 133/82 (99) 98 Room Air 10/20/17 08:10 Room Air 10/20/17 00:00 97 Room Air 10/19/17 22:55 36.6 71 18 111/71 (84) 95 Room Air 10/19/17 19:00 97 Room Air 10/19/17 16:02 Room Air 10/19/17 14:54 36.6 65 16 120/80 (93) 97 Room Air Physical Exam General Appearance: no apparent distress Respiratory/Chest: no respiratory distress, no accessory muscle use Abdomen: normal bowel sounds, + tenderness (LUQ) Extremities: normal inspection, no pedal edema Laboratory Results Last 24 Hours Test 10/20/17 06:14 White Blood Count 4.48 K/uL Red Blood Count 4.78 M/uL Hemoglobin 15.0 g/dL Hematocrit 44.1 % Mean Corpuscular Volume 92.3 fL Mean Corpuscular Hemoglobin 31.4 pg Mean Corpuscular Hemoglobin Concent 34.0 g/dl RDW Standard Deviation 49.0 fL RDW Coefficient of Variation 14.3 % Platelet Count 169 K/uL Mean Platelet Volume 9.9 fL Sodium Level 139 mmol/L Potassium Level 4.1 mmol/L Chloride Level 106 mmol/L Carbon Dioxide Level 29 mmol/L Anion Gap 4.0 mmol/L Blood Urea Nitrogen 10 mg/dl Creatinine 1.00 mg/dl Est Creatinine Clear Calc Drug Dose 117.7 ml/min Estimated GFR () 119.0 Estimated GFR (Non- 102.7 BUN/Creatinine Ratio 10.0 Random Glucose 92 mg/dl Calcium Level 8.5 mg/dl Assessment and Plan This is a 27 year old male with a PMH of anxiety disorder, recent history of acute diverticulitis - presents with abdominal pain, diarrhea - found to have C. diff C. Diff Diarrhea 1/3 continue clears will check a KUB today continue PO Vancomycin 1/[address] and radiographs - no obstruction, no infectious or inflammatory process noted recently on Cipro and Flagyl secondary possible acute diverticulitis PO Vanco ordered QID; will likely need two weeks will alternate Toradol and morphine PRN for now diet changed to clear liquids continue IVFs Anxiety Disorder continue home medications DVT ppx SCDs, ambulation FULL CODE
[2017-10-20 16:04] VITALS: BP 132/80; PULSE 62; TEMP 37; O2SAT 98
--- NOTE | 2017-10-20 20:44 | DIAGNOSTIC IMAGING REPORT ---
KUB CLINICAL HISTORY: 27 years-old Male presenting with r/o obstruction, abdominal pain. TECHNIQUE: Single supine view of the abdomen was obtained. COMPARISON: Plain radiograph and CT from 10/18/2017. FINDINGS: Nonobstructive bowel gas pattern. No gross pneumoperitoneum. Allowing for bowel gas and stool, no calcifications to suggest nephrolithiasis. Osseous structures normal. Lung bases clear. IMPRESSION: 1. No acute intra-abdominal pathology. Electronically signed by: Srinivasa Henson M.D. 10/20/2017 8:43 PM Dictated Date/Time: 10/20/2017 8:41 PM
[2017-10-21] VITALS: O2SAT 97
[2017-10-21 00:10] VITALS: BP 114/71; PULSE 56; TEMP 36.5; O2SAT 96
[2017-10-21] MEDS: VANCOMYCIN HCL 125 MG/2.5ML SOLN PO SCH ×2 (05:58→11:44)
[2017-10-21] MEDS: RASPBERRY SYRUP 5 ML UDP PO SCH ×2 (05:58→11:42)
--- NOTE | 2017-10-21 06:15 | NUR ---
ID: Pain improved overnight. Slept well after Toradol dose in the evening. Continue oral Vanco for C. Dif. Expect possible D/C home today.
[2017-10-21 07:44] VITALS: BP 123/77; PULSE 57; TEMP 36.6; O2SAT 96
[2017-10-21] MEDS: GABAPENTIN 100 MG CAP PO SCH (08:11)
[2017-10-21 08:33] LABS: HEMATOCRIT 45.5 % (42-52); HEMOGLOBIN 15.5 g/dL (14.0-18.0); MEAN CELL VOLUME 92.7 fL (80-100); MEAN CORPUSCULAR HEMOGLOBIN 31.6 pg (25-34); MEAN CORPUSCULAR HGB CONC 34.1 g/dl (32-36); PLATELET COUNT 190 K/uL (130-400); RED CELL DISTRIBUTION WIDTH CV 14.2 % (11.5-14.5); RED CELL DISTRIBUTION WIDTH SD 48.4 fL (36.4-46.3)
[2017-10-21] MEDS: KETOROLAC TROMETHAMINE 15 MG/ML VIAL IV. PRN (09:17)
[2017-10-21] MEDS: ONDANSETRON INJ 2 MG/ML 2 ML VIAL IV PRN (09:17)
[2017-10-21 09:44] LABS: CALCIUM 8.7 mg/dl (8.5-10.1); CREATININE 1.16 mg/dl (0.60-1.40)
--- NOTE | 2017-10-21 11:19 | Progress Note ---
Subjective Date of Service: Oct 21, 2017. Subjective Pt evaluation today including: conversation w/ patient, physical exam, lab review, review of studies, review of inpatient medication list Saw/examined the patient in room 263 His abdominal pain is improving No nausea/vomiting, tolerating PO diet Denies fevers/chills. Problem List Medical Problems: (1) Acute colitis Status: Acute (2) C. difficile colitis Status: Acute (3) Contusion of right forearm Status: Acute (4) Contusion of right hand Status: Acute (5) Contusion of right wrist Status: Acute (6) Diarrhea Status: Acute (7) Lower abdominal pain Status: Acute (8) Pain of right thumb Status: Acute (9) Vomiting Status: Acute (10) Work related injury Status: Acute Review of Systems Constitutional: No fever, No chills Abdomen: + pain, No nausea, No vomiting, No diarrhea, No constipation, No GI bleeding Medications Current Inpatient Medications Medications (Trade) Dose Ordered Sig/Abhinav Route Start Time Stop Time Status Last Admin Dose Admin Ioversol (Optiray 320) 100 ml UD PRN IV 10/18/17 18:00 10/22/17 17:59 Clonazepam (Klonopin Tab) 1 mg TID PRN PO 10/18/17 20:15 11/17/17 20:14 Gabapentin (Neurontin Cap) 100 mg TID PO 10/18/17 21:00 11/17/17 20:59 10/21/17 08:11 100 MG Al Hydrox/Mg Hydrox/Simethicone (Maalox Max Susp) 15 ml Q6H PRN PO 10/18/17 20:15 11/17/17 20:14 Ondansetron HCl (Zofran Inj) 4 mg Q6H PRN IV 10/18/17 20:15 11/17/17 20:14 10/21/17 09:17 4 MG Miscellaneous (Iv Fluids Completed) 1 ea PRN PRN N/A 10/18/17 20:45 10/18/18 20:44 Vancomycin HCl (Vancomycin Oral Soln) 125 mg Q6H PO 10/19/17 00:00 10/29/17 00:00 10/21/17 05:58 125 MG Raspberry (Raspberry Syrup 5ml Cup) 5 ml Q6H PO 10/19/17 00:00 11/02/17 00:00 10/21/17 05:58 5 ML Ketorolac Tromethamine (Toradol Inj) 15 mg Q6H PRN IV. 10/19/17 08:00 10/23/17 20:14 10/21/17 09:17 15 MG Objective Vital Signs Date Time Temp Pulse Resp B/P (MAP) Pulse Ox O2 Delivery O2 Flow Rate FiO2 10/21/17 08:00 Room Air 10/21/17 07:44 36.6 57 16 123/77 (92) 96 Room Air 10/21/17 00:10 36.5 56 18 114/71 (85) 96 Room Air 10/21/17 00:00 97 Room Air 10/20/17 19:30 Room Air 10/20/17 16:04 37.0 62 16 132/80 (97) 98 Room Air Physical Exam General Appearance: no apparent distress Abdomen: normal bowel sounds, non tender, soft Laboratory Results Last 24 Hours Test 10/21/17 08:10 White Blood Count 5.40 K/uL Red Blood Count 4.91 M/uL Hemoglobin 15.5 g/dL Hematocrit 45.5 % Mean Corpuscular Volume 92.7 fL Mean Corpuscular Hemoglobin 31.6 pg Mean Corpuscular Hemoglobin Concent 34.1 g/dl RDW Standard Deviation 48.4 fL RDW Coefficient of Variation 14.2 % Platelet Count 190 K/uL Mean Platelet Volume 10.0 fL Sodium Level 138 mmol/L Potassium Level 4.0 mmol/L Chloride Level 104 mmol/L Carbon Dioxide Level 29 mmol/L Anion Gap 5.0 mmol/L Blood Urea Nitrogen 12 mg/dl Creatinine 1.16 mg/dl Est Creatinine Clear Calc Drug Dose 101.5 ml/min Estimated GFR () 99.5 Estimated GFR (Non- 85.8 BUN/Creatinine Ratio 10.4 Random Glucose 125 mg/dl Calcium Level 8.7 mg/dl Magnesium Level 2.4 mg/dl Assessment and Plan This is a 27 year old male with a PMH of anxiety disorder, recent history of acute diverticulitis - presents with abdominal pain, diarrhea - found to have C. diff C. Diff Diarrhea 10/21 patient is doing well can advance diet will d/c home today with oral Vancomycin 10/20 continue clears will check a KUB today continue PO Vancomycin 1/[address] and radiographs - no obstruction, no infectious or inflammatory process noted recently on Cipro and Flagyl secondary possible acute diverticulitis PO Vanco ordered QID; will likely need two weeks will alternate Toradol and morphine PRN for now diet changed to clear liquids continue IVFs Anxiety Disorder continue home medications DVT ppx SCDs, ambulation FULL CODE
[2017-10-21] MEDS ORDERED: VANC1CAP19 PO (11:22)
--- NOTE | 2017-10-21 11:24 | Discharge Instructions ---
Discharge Instructions Date of Service Oct 21, 2017. Admission Reason for Admission: Abdominal Pain, Diarrhea, Nausea And Vomiting Discharge Discharge Diagnosis / Problem: C. Diff Diarrhea Discharge Goals Goal(s): Decrease discomfort, Improve function, Diagnostic testing, Therapeutic intervention Activity Recommendations Activity Limitations: resume your previous activity . Instructions / Follow-Up Instructions / Follow-Up Please follow-up with Dr. Connors on October 26 at 3:45PM * You will be on vancomycin (antibiotic) four times a day for 10 days * Please make sure you follow C. Diff precautions (packet given) * Return to work after follow-up with primary care physician Current Hospital Diet Patient's current hospital diet: Clear Liquid Diet Discharge Diet Recommended Diet: Low Fiber Diet Pending Studies Studies pending at discharge: no Medical Emergencies . Who to Call and When: Medical Emergencies: If at any time you feel your situation is an emergency, please call 911 immediately. . Non-Emergent Contact Non-Emergency issues call your: Primary Care Provider . . "Provider Documentation" section prepared by Kristen Larsen. . VTE Core Measure Inpt VTE Proph given/why not?: Treatment not indicated
--- NOTE | 2017-10-21 11:27 | Discharge Summary ---
Discharge Summary Date of Service Oct 21, 2017. Discharge Summary Admission Date: Oct 19, 2017 at 10:55 Discharge Date: Oct 21, 2017 Discharge Disposition: Home Principal Diagnosis: C. Diff Colitis Medication Reconciliation New Medications: Vancomycin Hcl (Vancocin Hcl) 125 Mg Cap 125 MG PO QID for 10 Days, #40 CAP Continued Medications: Clonazepam (Klonopin) 1 Mg Tab 1 MG PO TID PRN for Anxiety Gabapentin (Neurontin) 100 Mg Cap 100 MG PO TID Admission Information HPI (per Admitting provider): DATE OF ADMISSION: 10/18/2017 PRIMARY CARE PHYSICIAN: Dr. Razo. CHIEF COMPLAINT: Abdominal pain in the left quadrant associated with diarrhea, nausea and vomiting. HISTORY OF PRESENT COMPLAINT: He is a 27-year-old male with significant past medical history of abdominal pain, once suspected to have Crohn's disease but nothing proven. Apparently, he came in to the ER on 27 of September with left lower quadrant pain. At that time, he underwent a CAT scan that was reported as possible diverticulitis. He received antibiotic with Cipro and Flagyl since then. According to him, his symptoms did not go away completely and since yesterday he has been having severe left lower quadrant pain associated with nausea, vomiting, and diarrhea. He has had diarrhea many times today and his pain has been worse. Denies to have any fever or chills but does have weakness and tiredness and he does not feel well. He does not have any chest pain, shortness of breath, palpitation. No cough or phlegm, abdominal pain as before. No problem with urine. He denies having any dizziness or any numbness or tingling involving any of the extremities. In the ER, he was hemodynamically stable. His apparent blood count came back fairly negative except potassium of 3.1 and his CAT scan was unremarkable, but given ongoing pain and diarrhea, he was admitted to medical floor for continuation of care and rule out C. diff colitis. PAST MEDICAL HISTORY: Nothing significant except anxiety disorder and once thought of having Crohn's disease but never proven. PAST SURGICAL HISTORY: Nothing significant. FAMILY HISTORY: No family history of diabetes, hypertension or stroke. SOCIAL HISTORY: He is . He smokes about 1 pack per day. He does not drink and he has been ambulant. ALLERGIES: He has seasonal allergies but not to any medications. MEDICATIONS: As an outpatient, he has been taking Klonopin 1 mg 3 times daily as needed and Neurontin 100 mg 3 times daily for pain. REVIEW OF SYSTEMS: Other systemic review unremarkable except those mentioned in history of present complaint. PHYSICAL EXAMINATION: GENERAL: On examination in the Emergency Room, he was not having any acute distress, but he did complain of some pain in the left quadrant. VITAL SIGNS: Temperature 36.7, pulse was 72, blood pressure 110/69, saturation 96% on room air. HEENT: Unremarkable. NECK: Supple. No JVD, no bruit. CHEST: Clear to auscultation bilaterally. HEART: S1, S2 regular. No murmur appreciated. ABDOMEN: Soft with tenderness in the left quadrant, specifically left lower quadrant. No guarding and no rigidity. Bowel sounds present. EXTREMITIES: Negative for any edema. MUSCULOSKELETAL: Did not show any acute arthritis. CENTRAL NERVOUS SYSTEM: He was alert, awake, oriented x3. No focal sensory and/or motor deficit appreciated. LABORATORY DATA: Noted today white count was 12.82, H&H 16.4/47.8, platelet was 219. Sodium 136, potassium 4.0, chloride 103, carbon dioxide 26, BUN 18, creatinine 1.08, random glucose 93. Lactic acid pending. LFTs unremarkable. Lipase normal. UA examination unremarkable. CT of the abdomen and pelvis unremarkable. X-ray of the abdomen and pelvis nothing obstructing. IMPRESSION AND PLAN: 1. Abdominal pain, nausea and vomiting with diarrhea, likely secondary to Clostridium difficile colitis. We will send stool for Clostridium difficile toxins and Gram stain and culture. He will be admitted to medical floor. He will be given cautious amount of IV fluid and pain medications as needed. 2. Anxiety disorder. He has been on Klonopin and gabapentin. We will continue with those. 3. May have gastroenteritis as well. We will monitor while in the hospital and give some Maalox, Mylanta as needed. 4. Deep venous thrombosis prophylaxis with sequential compression devices. He has a very poor risk of clot formation, increased ambulation. 5. Code status. He will be a full code. In my clinical judgment, the beneficiary meets criteria as per CMS for 2 midnight stay in the hospital. Hospital Course This is a 27 year old male with a PMH of anxiety disorder, recent history of acute diverticulitis - presents with abdominal pain, diarrhea - found to have C. diff C. Diff Diarrhea 10/21 patient is doing well can advance diet will d/c home today with oral Vancomycin 10/20 continue clears will check a KUB today continue PO Vancomycin 10/[address] and radiographs - no obstruction, no infectious or inflammatory process noted recently on Cipro and Flagyl secondary possible acute diverticulitis PO Vanco ordered QID; will likely need two weeks will alternate Toradol and morphine PRN for now diet changed to clear liquids continue IVFs Anxiety Disorder continue home medications DVT ppx SCDs, ambulation FULL CODE Total time spent on discharge = 25 minutes This includes examination of the patient, discharge planning, medication reconciliation, and communication with other providers. Discharge Instructions Please follow-up with Dr. Connors on October 26 at 3:45PM * You will be on vancomycin (antibiotic) four times a day for 10 days * Please make sure you follow C. Diff precautions (packet given) * Return to work after follow-up with primary care physician
[2017-10-21 11:30] VITALS: BP 123/77; PULSE 57; TEMP 36.6; O2SAT 96
--- NOTE | 2017-10-21 11:40 | NUR ---
order received diet advanced as tolerated, discharge order placed as well. changed diet to regular diet as pt reports he wants to try grilled cheese and tomato soup. assisted pt in calling dietary to order. will assess tolerance. will discharge pt after lunch.
--- NOTE | 2017-10-21 12:27 | NUR ---
pt tolerated grilled cheese and soup well. IV site discontinued catheter intact. discharge instructions and medications reviewed with pt. verbalized understanding. patient awaiting ride home. will call volunteer escort when pt is ready to leave. all needs met
[2018-01-20] MEDS ORDERED: BNT20 PO (17:01)
[2018-01-20] MEDS ORDERED: OMEP20CA9 PO ×2 (17:01→17:10)
[2018-01-20] MEDS ORDERED: SYN25 PO (17:01)
== END 2017-10-21 12:49 | disposition home or self-care (01) | DRG 373 ==
LOC: C.EDB 15:29 → C.MS2W 20:12 → ENRESERV 20:22 → OBSVTOIN 10-19 10:55
PROVIDERS: ADMIT Internal Medicine; ATTEND Family Medicine
DX: A04.72 Enterocolitis due to Clostridium difficile, not specified as recurrent (principal); F17.210 Nicotine dependence, cigarettes, uncomplicated; F41.9 Anxiety disorder, unspecified

== ENCOUNTER 2018-01-17 13:38 | Observation (INO) | payer OTHER ==
[~2018-01-17] VITALS: Ht 172.7 cm; Wt 83.2 kg
[~2018-01-17 13:38] MED LIST changes: -CIPR-255 PO; +CLON1TAB3 PO; +GABA-112 PO; -NRN100 PO; -OXYC-90 PO; +VANC1CAP19 PO
[2018-01-17] MEDS ORDERED: SODIUM CHLORIDE 0.9% 1000ML 1,000 ML IV STA (13:46)
--- NOTE | 2018-01-17 13:52 | EMERGENCY ROOM VISIT NOTE ---
History First contact with patient: 13:39 Chief Complaint: ABDOMINAL PAIN Stated Complaint: ABDOMINAL PAIN Nursing Triage Summary: PT HERE WITH LEFT SIDED ABD PAINS INTERMITTENTLY X MONTHS. PT STATES TODAY PT WAS FOUND BY FAMILY ON FLOOR. PT STATES PAIN IS MUCH WORSE. NO NAUSEA. PT STATES NO BM X 2 DAYS. PT HAS HX OF C DIFF APPROX ONE MONTH AGO. HX OF DIVERTICULOSIS History of Present Illness The patient is a 28 year old male who presents to the Emergency Room via ambulance with complaints of "abdominal pain". The patient states that he has a history of abdominal pain that is chronic, but worsened today. He notes no bowel movement for the past few days. It was normal during his last bowel movement. He notes that he recently had C. difficile back in October. He denies any new medications recently. He denies any alcohol or drug use. The abdominal pain is left-sided and he rates it as a 10/10. He states that he is unsure who called 911, noting that he must have passed out from the pain. It is noted that he received 8 mg of morphine in route, 350 cc of normal saline, and 4 mg of Zofran. He denies seeing GI specialist in the past. Review of Systems A complete 10-point Review of Systems was discussed with the patient, with pertinent positives and negatives listed in the History of Present Illness. All remaining Review of Systems questions can be considered negative unless otherwise specified. Past Medical/Surgical History Medical Problems: (1) Abdominal pain (2) Diarrhea (3) Nausea and vomiting (4) Syncope (5) Thumb pain Family History Cancer Heart disease Social History Smoking Status: Current Every Day Smoker Alcohol Use: none Drug Use: none Marital Status: in relationship Housing Status: lives with family Occupation Status: unemployed Current/Historical Medications No Active Prescriptions or Reported Meds Physical Exam Vital Signs Date Time Temp Pulse Resp B/P (MAP) Pulse Ox O2 Delivery O2 Flow Rate FiO2 01/17/18 17:48 60 14 135/77 94 Room Air 01/17/18 16:20 77 14 126/79 98 01/17/18 14:23 86 16 145/87 99 Room Air 01/17/18 14:07 97 Room Air 01/17/18 13:41 101 01/17/18 13:39 36.8 92 16 138/100 97 Room Air Physical Exam VITAL SIGNS - Vital signs and nursing notes were reviewed. Hypertensive. Tachycardic GENERAL -28-year-old male appearing his stated age who is in no acute distress but does appear to be in pain. Communicates well with provider and answers questions appropriately. SKIN - Without rashes. No meningeal petechial rashes. HEAD - NC/AT. EYES - Sclera anicteric. EARS - No deformities of external structures noted on gross examination bilaterally. NOSE - Midline and without cyanosis. No epistaxis or purulent drainage noted. MOUTH/OROPHARYNX - Without perioral cyanosis. NECK - No nuchal rigidity. LUNGS - Chest wall symmetric without accessory muscle use, intercostals retractions, or central cyanosis. Normal vesicular breath sounds CTA B/L. No wheezes, rales, or rhonchi appreciated. CARDIAC - RRR with S1/S2. No murmur, rubs, or gallops appreciated. ABDOMEN - Abdominal contour normal without pulsations or visible masses. BS normoactive all four quadrants. There is diffuse left-sided abdominal tenderness noted. The abdomen is soft and nonrigid. No palpable masses, hepatosplenomegaly, or ascites noted. EXTREMITIES - No clubbing or peripheral cyanosis. No pretibial edema present. +5 /5 strength noted in UE/LE bilaterally. NEUROLOGIC - Cranial nerves II through XII grossly intact. Sensory intact to light touch throughout. PSYCH - A&O, and cooperates fully with examiner. Pt is very pleasant and interacts well with examiner. Medical Decision & Procedures ER Provider Diagnostic Interpretation: AP CHEST WITH ABDOMINAL SERIES CLINICAL HISTORY: Generalized abdominal pain. No bowel movement for several days. FINDINGS: An AP chest radiograph is compared to study dated 10/18/2017. The Examination is degraded by patient rotation and apical lordotic positioning. The cardiomediastinal silhouette is unremarkable. There is mild elevation of the right hemidiaphragm. No airspace consolidation or pleural effusion is identified. No pneumothorax is seen. The bony thorax is grossly intact. Supine and decubitus abdominal radiographs are correlated with abdominal CT dated 09/27/2017. There is a nonobstructed abdominal bowel gas pattern. No evidence of intraperitoneal free air is seen. There are no abnormal abdominal calcifications. The lumbosacral spine and bony pelvis appear intact. IMPRESSION: 1. No active disease in the chest. 2. Nonobstructed abdominal bowel gas pattern. Electronically signed by: Dorian Mckinney M.D. 01/17/2018 2:54 PM Dictated Date/Time: 01/17/2018 2:[address] SCAN OF THE ABDOMEN AND PELVIS WITH IV CONTRAST CLINICAL HISTORY: Left-sided abdominal pain. COMPARISON STUDY: Abdominal CT dated 10/18/2017. TECHNIQUE: Following the IV administration of 92 cc of Optiray 320, CT scan of the abdomen and pelvis is performed from the lung bases to the proximal femora. Images are reviewed in the axial, sagittal, and coronal planes. IV contrast was administered without complication. A dose lowering technique was utilized adhering to the principles of ALARA. CT DOSE: 411.19 mGy.cm FINDINGS: Lung bases: The heart is normal in size and without pericardial effusion. The lung bases are clear. There is a tiny hiatal hernia. Liver: The contrast-enhanced liver is normal in size, contour, and attenuation. There is no intrahepatic biliary ductal dilatation. The hepatic veins and portal veins are patent. Gallbladder: Unremarkable. Spleen: Normal in size and attenuation. Pancreas: Unremarkable. Adrenal glands: Unremarkable. Kidneys: The contrast enhanced kidneys are normal in size and without hydronephrosis. The kidneys enhance symmetrically. Abdominal vasculature: The abdominal aorta is normal in course and caliber. Bowel: There is underdistention of the left colon with submucosal fat deposition. No pericolonic inflammation is identified. No bowel obstruction is seen. The appendix is well-visualized and normal. Peritoneum: There is no intraperitoneal free air or abdominal ascites. Lymphadenopathy: None. Pelvic viscera: The bladder, prostate, and seminal vesicles are normal as visualized. Skeletal structures: No lytic or blastic lesions are seen. IMPRESSION: There are no acute infectious or inflammatory findings in the abdomen or pelvis. Electronically signed by: Dorian Mckinney M.D. 01/17/2018 5:31 PM Dictated Date/Time: 01/17/2018 5:26 PM Laboratory Results 01/17/18 13:55 Red Blood Count 5.05, Mean Corpuscular Volume 86.7, Mean Corpuscular Hemoglobin 30.7, Mean Corpuscular Hemoglobin Concent 35.4, Mean Platelet Volume 9.9, Neutrophils (%) (Auto) 63.1, Lymphocytes (%) (Auto) 23.9, Monocytes (%) (Auto) 11.0, Eosinophils (%) (Auto) 1.3, Basophils (%) (Auto) 0.3, Neutrophils # (Auto ) 4.31, Lymphocytes # (Auto) 1.63, Monocytes # (Auto) 0.75, Eosinophils # (Auto ) 0.09, Basophils # (Auto) 0.02 01/17/18 13:55 Test 01/17/18 13:55 01/17/18 18:20 01/17/18 18:44 White Blood Count 6.83 K/uL (4.8-10.8) Red Blood Count 5.05 M/uL (4.7-6.1) Hemoglobin 15.5 g/dL (14.0-18.0) Hematocrit 43.8 % (42-52) Mean Corpuscular Volume 86.7 fL (80-100) Mean Corpuscular Hemoglobin 30.7 pg (25-34) Mean Corpuscular Hemoglobin Concent 35.4 g/dl (32-36) Platelet Count 227 K/uL (130-400) Mean Platelet Volume 9.9 fL (7.4-10.4) Neutrophils (%) (Auto) 63.1 % Lymphocytes (%) (Auto) 23.9 % Monocytes (%) (Auto) 11.0 % Eosinophils (%) (Auto) 1.3 % Basophils (%) (Auto) 0.3 % Neutrophils # (Auto) 4.31 K/uL (1.4-6.5) Lymphocytes # (Auto) 1.63 K/uL (1.2-3.4) Monocytes # (Auto) 0.75 K/uL (0.11-0.59) Eosinophils # (Auto) 0.09 K/uL (0-0.5) Basophils # (Auto) 0.02 K/uL (0-0.2) RDW Standard Deviation 40.6 fL (36.4-46.3) RDW Coefficient of Variation 12.7 % (11.5-14.5) Immature Granulocyte % (Auto) 0.4 % Immature Granulocyte # (Auto) 0.03 K/uL (0.00-0.02) Anion Gap 10.0 mmol/L (3-11) Est Creatinine Clear Calc Drug Dose 102.8 ml/min Estimated GFR () 98.8 Estimated GFR (Non- 85.2 BUN/Creatinine Ratio 15.0 (10-20) Calcium Level 8.7 mg/dl (8.5-10.1) Magnesium Level 2.3 mg/dl (1.8-2.4) Total Bilirubin 1.0 mg/dl (0.2-1) Aspartate Amino Transf (AST/SGOT) 21 U/L (15-37) Alanine Aminotransferase (ALT/SGPT) 41 U/L (12-78) Alkaline Phosphatase 52 U/L (45-117) Total Creatine Kinase 138 U/L (39-308) Creatine Kinase MB 1.7 ng/ml (0.5-3.6) Creatine Kinase MB Ratio 1.2 (0-3.0) Troponin I < 0.015 ng/ml (0-0.045) Total Protein 7.8 gm/dl (6.4-8.2) Albumin 4.1 gm/dl (3.4-5.0) Globulin 3.7 gm/dl (2.5-4.0) Albumin/Globulin Ratio 1.1 (0.9-2) Lipase 63 U/L (73-393) Salicylates Level < 1.7 mg/dl (2.8-20) Acetaminophen Level < 2 ug/ml (10-30) Urine Color YELLOW Urine Appearance CLEAR (CLEAR) Urine pH 5.5 (4.5-7.5) Urine Specific [place] > 1.045 (1.000-1.030) Urine Protein NEG (NEG) Urine Glucose (UA) NEG (NEG) Urine Ketones TRACE (NEG) Urine Occult Blood NEG (NEG) Urine Nitrite NEG (NEG) Urine Bilirubin NEG (NEG) Urine Urobilinogen NEG (NEG) Urine Leukocyte Esterase NEG (NEG) Urine Opiates Screen POS (NEG) Urine Methadone, Qualitative NEG (NEG) Urine Barbiturates NEG (NEG) Urine Phencyclidine (PCP) Level NEG (NEG) Ur Amphetamine/Methamphetamine NEG (NEG) MDMA (Ecstasy) Screen NEG (NEG) Urine Benzodiazepines Screen NEG (NEG) Urine Cocaine Metabolite POS (NEG) Urine Marijuana (THC) POS (NEG) Thyroid Stimulating Hormone (TSH) 28.600 uIu/ml (0.300-4.500) Free Thyroxine 1.14 ng/dl (0.80-1.60) Medications Administered Medications (Trade) Dose Ordered Sig/Abhinav Route Start Time Stop Time Status Last Admin Dose Admin Sodium Chloride 1,000 ml @ 999 mls/hr Q1H1M STAT IV 4/2/18 13:46 01/17/18 14:48 DC 01/17/18 14:20 999 MLS/HR Morphine Sulfate (MoRPHine SULFATE INJ) 4 mg NOW STAT IV 01/17/18 15:27 01/17/18 15:28 DC 01/17/18 15:33 4 MG Ondansetron HCl (Zofran Inj) 4 mg NOW STAT IV 01/17/18 15:27 01/17/18 15:28 DC 01/17/18 15:33 4 MG Hydromorphone HCl (Dilaudid Inj) 1 mg NOW STAT IV 01/17/18 16:25 01/17/18 16:26 DC 01/17/18 16:40 1 MG Ketorolac Tromethamine (Toradol Inj) 30 mg NOW STAT IV 01/17/18 18:17 01/17/18 18:18 DC 01/17/18 19:11 30 MG Morphine Sulfate (MoRPHine SULFATE INJ) 2 mg Q4H PRN IV 01/17/18 19:15 01/17/18 20:34 DC 01/17/18 20:31 2 MG Medical Decision Patient was seen and evaluated as above in room A2. He presents to us today with left-sided abdominal pain. He notes that previous workups were negative. Review was performed of nursing notes and vital signs. After obtaining a thorough history and physical examination the above work up was performed. A focus review was performed to previous visit. On exam he does appear to be in a great deal of pain. He ready received 8 of morphine in route as well as Zofran. I did allow time to pass to see if this would help improve his symptoms. It did not. He was then given more morphine. This did not help and was given Dilaudid. Pain persisted. He was given Toradol. CT scan was obtained. Negative. CBC essentially negative. I did obtain metabolic panel. No acute process however his TSH is quite high at 15.5. Free T4 appears to be normal. Urine negative. A urine drug screen was obtained and found to be positive for opiates which is expected given the administered pain medication. He was also found to be positive for cocaine and marijuana.Prior to the CT of the abdomen an abdominal x-ray was obtained which was found to be essentially negative. His pain persisted, and he still appear to be in a great deal of pain while in the room. I do believe that further evaluation in the inpatient setting is warranted. This was discussed with the attending physician. Please refer to for the documentation regarding his stay as I did discuss this with the hospitalist. Case was discussed with the attending physician. In the evaluation and treatment of this patient the following differential diagnoses were entertained: Appendicitis, acute cholecystitis, acute intra- abdominal etiology, drug-seeking behavior, among others. Impression Primary Impression: Abdominal pain Departure Information Prescriptions No Active Prescriptions or Reported Meds Referrals No Doctor, Assigned (PCP) Patient Instructions My [facility]
[2018-01-17] MEDS ORDERED: OPTIRAY 320 IV PRN (14:00)
[2018-01-17 14:10] LABS: BASO % 0.3 %; BASO ABS # 0.02 K/uL (0-0.2); EOS % 1.3 %; EOS ABS # 0.09 K/uL (0-0.5); HEMATOCRIT 43.8 % (42-52); HEMOGLOBIN 15.5 g/dL (14.0-18.0); IG# 0.03 K/uL (0.00-0.02); LYMPH % 23.9 %; LYMPH ABS # 1.63 K/uL (1.2-3.4); MEAN CELL VOLUME 86.7 fL (80-100); MEAN CORPUSCULAR HEMOGLOBIN 30.7 pg (25-34); MEAN CORPUSCULAR HGB CONC 35.4 g/dl (32-36); MEAN PLATELET VOLUME 9.9 fL (7.4-10.4); MONO ABS # 0.75 K/uL (0.11-0.59); NEUT % 63.1 %; NEUT ABS # 4.31 K/uL (1.4-6.5); PLATELET COUNT 227 K/uL (130-400); RED CELL DISTRIBUTION WIDTH CV 12.7 % (11.5-14.5); RED CELL DISTRIBUTION WIDTH SD 40.6 fL (36.4-46.3); WHITE BLOOD COUNT 6.83 K/uL (4.8-10.8)
[2018-01-17 14:30] LABS: ALBUMIN 4.1 gm/dl (3.4-5.0); ALT/SGPT 41 U/L (12-78); AST/SGOT 21 U/L (15-37); BLOOD UREA NITROGEN 17 mg/dl (7-18); CALCIUM 8.7 mg/dl (8.5-10.1); CARBON DIOXIDE 23 mmol/L (21-32); CREATININE 1.16 mg/dl (0.60-1.40); GLUCOSE 102 mg/dl (70-99); LIPASE 63 U/L (73-393); POTASSIUM 3.8 mmol/L (3.5-5.1); SODIUM 138 mmol/L (136-145)
[2018-01-17 14:42] LABS: ALKALINE PHOSPHATASE 52 U/L (45-117); CKMB 1.7 ng/ml (0.5-3.6); TOTAL PROTEIN 7.8 gm/dl (6.4-8.2)
--- NOTE | 2018-01-17 14:55 | DIAGNOSTIC IMAGING REPORT ---
AP CHEST WITH ABDOMINAL SERIES CLINICAL HISTORY: Generalized abdominal pain. No bowel movement for several days. FINDINGS: An AP chest radiograph is compared to study dated 10/18/2017. The Examination is degraded by patient rotation and apical lordotic positioning. The cardiomediastinal silhouette is unremarkable. There is mild elevation of the right hemidiaphragm. No airspace consolidation or pleural effusion is identified. No pneumothorax is seen. The bony thorax is grossly intact. Supine and decubitus abdominal radiographs are correlated with abdominal CT dated 09/27/2017. There is a nonobstructed abdominal bowel gas pattern. No evidence of intraperitoneal free air is seen. There are no abnormal abdominal calcifications. The lumbosacral spine and bony pelvis appear intact. IMPRESSION: 1. No active disease in the chest. 2. Nonobstructed abdominal bowel gas pattern. Electronically signed by: Dorian Mckinney M.D. 01/17/2018 2:54 PM Dictated Date/Time: 01/17/2018 2:52 PM
[2018-01-17] MEDS ORDERED: MoRPHine SULFATE 4 MG/ML 1 ML CARP\\VIAL IV STA (15:27)
[2018-01-17] MEDS ORDERED: ONDANSETRON INJ 2 MG/ML 2 ML VIAL IV STA (15:27)
[2018-01-17] MEDS ORDERED: HYDROmorphone INJ 1 MG/ML SYR IV STA (16:25)
--- NOTE | 2018-01-17 17:32 | DIAGNOSTIC IMAGING REPORT ---
CT SCAN OF THE ABDOMEN AND PELVIS WITH IV CONTRAST CLINICAL HISTORY: Left-sided abdominal pain. COMPARISON STUDY: Abdominal CT dated 10/18/2017. TECHNIQUE: Following the IV administration of 92 cc of Optiray 320, CT scan of the abdomen and pelvis is performed from the lung bases to the proximal femora. Images are reviewed in the axial, sagittal, and coronal planes. IV contrast was administered without complication. A dose lowering technique was utilized adhering to the principles of ALARA. CT DOSE: 411.19 mGy.cm FINDINGS: Lung bases: The heart is normal in size and without pericardial effusion. The lung bases are clear. There is a tiny hiatal hernia. Liver: The contrast-enhanced liver is normal in size, contour, and attenuation. There is no intrahepatic biliary ductal dilatation. The hepatic veins and portal veins are patent. Gallbladder: Unremarkable. Spleen: Normal in size and attenuation. Pancreas: Unremarkable. Adrenal glands: Unremarkable. Kidneys: The contrast enhanced kidneys are normal in size and without hydronephrosis. The kidneys enhance symmetrically. Abdominal vasculature: The abdominal aorta is normal in course and caliber. Bowel: There is underdistention of the left colon with submucosal fat deposition. No pericolonic inflammation is identified. No bowel obstruction is seen. The appendix is well-visualized and normal. Peritoneum: There is no intraperitoneal free air or abdominal ascites. Lymphadenopathy: None. Pelvic viscera: The bladder, prostate, and seminal vesicles are normal as visualized. Skeletal structures: No lytic or blastic lesions are seen. IMPRESSION: There are no acute infectious or inflammatory findings in the abdomen or pelvis. Electronically signed by: Dorian Mckinney M.D. 01/17/2018 5:31 PM Dictated Date/Time: 01/17/2018 5:26 PM
[2018-01-17] MEDS ORDERED: KETOROLAC TROMETHAMINE 30 MG/ML VIAL IV STA (18:17)
--- NOTE | 2018-01-17 18:28 | History and Physical ---
History & Physical Date & Time of Service: Jan 17, 2018 at 18:28 Chief Complaint: Abdominal Pain Primary Care Physician: No Doctor, Assigned History of Present Illness Source: patient Patient is a 28 yr male with PMH of Mood disorder, Tobacco use disorder, H/O C.diff colitis presents with history of abdominal pain, nausea and possible syncope. He was diagnosed with C.diff colitis in Oct 2017, and completed the antibiotic course as prescribed. Patient states he had LLQ abdominal pain on multiple occasions in the past and was upset that he was not diagnosed as to why he gets the pain. He reports abdominal pain to be excruciating, non radiating, associated with nausea, non aggravating/relieving factors. Reports his last BM was 2 days ago. Patient reports he was found on the floor by his son and he doesn't remember the events that occurred. Reports that he had a colonoscopy 3 yrs ago which was normal. Patient denies any alcohol or drug use. Denies any history of chest pain, SOB, dizziness, pedal edema, cough, fever, chills, weakness, numbness, change in vision, vomiting, diarrhea. Past Medical/Surgical History Medical Problems: (1) Abdominal pain (2) Acute colitis (3) Back pain (4) C. difficile colitis (5) Contusion of right forearm (6) Contusion of right hand (7) Contusion of right wrist (8) Diarrhea (9) Diarrhea (10) Lower abdominal pain (11) Nausea and vomiting (12) Pain of right thumb (13) Thoracolumbar back pain (14) Thumb pain (15) Vomiting (16) Work related injury Family History Cancer Heart disease Denies any significant family history. Social History Smoking Status: Current Every Day Smoker Alcohol Use: none Drug Use: none (Denies) Marital Status: in relationship Housing status: lives with significant other Occupational Status: unemployed Allergies Coded Allergies: NO KNOWN DRUG ALLERGIES (Verified Allergy, Unknown, ., 01/17/18) Home Medications No Active Prescriptions or Reported Meds Review of Systems See HPI for pertinent positives & negatives. A total of 10 systems reviewed and were otherwise negative. Physical Exam Vital Signs Date Time Temp Pulse Resp B/P (MAP) Pulse Ox O2 Delivery O2 Flow Rate FiO2 01/17/18 17:48 60 14 135/77 94 Room Air 01/17/18 16:20 77 14 126/79 98 01/17/18 14:23 86 16 145/87 99 Room Air 01/17/18 14:07 97 Room Air 01/17/18 13:41 101 01/17/18 13:39 36.8 92 16 138/100 97 Room Air General Appearance: WD/WN, no apparent distress, + mild distress (secondary to pain) Head: normocephalic, atraumatic Eyes: normal inspection, PERRL, EOMI ENT: normal ENT inspection, hearing grossly normal Neck: supple, trachea midline Respiratory/Chest: chest non-tender, lungs clear, normal breath sounds, no respiratory distress, no accessory muscle use Cardiovascular: regular rate, rhythm, no edema, + tachycardia Abdomen/GI: normal bowel sounds, soft, + tenderness (LUQ and LLQ) Back: normal inspection Extremities/Musculoskelatal: normal inspection, no pedal edema 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, no motor/sensory deficits, alert, oriented x 3 Skin: normal color, warm/dry Diagnostics Laboratory Results Results Past 24 Hours Test 01/17/18 13:55 01/17/18 18:16 Range/Units White Blood Count 6.83 4.8-10.8 K/uL Red Blood Count 5.05 4.7-6.1 M/uL Hemoglobin 15.5 14.0-18.0 g/dL Hematocrit 43.8 42-52 % Mean Corpuscular Volume 86.7 80-100 fL Mean Corpuscular Hemoglobin 30.7 25-34 pg Mean Corpuscular Hemoglobin Concent 35.4 32-36 g/dl Platelet Count 227 130-400 K/uL Mean Platelet Volume 9.9 7.4-10.4 fL Neutrophils (%) (Auto) 63.1 % Lymphocytes (%) (Auto) 23.9 % Monocytes (%) (Auto) 11.0 % Eosinophils (%) (Auto) 1.3 % Basophils (%) (Auto) 0.3 % Neutrophils # (Auto) 4.31 1.4-6.5 K/uL Lymphocytes # (Auto) 1.63 1.2-3.4 K/uL Monocytes # (Auto) 0.75 0.11-0.59 K/uL Eosinophils # (Auto) 0.09 0-0.5 K/uL Basophils # (Auto) 0.02 0-0.2 K/uL RDW Standard Deviation 40.6 36.4-46.3 fL RDW Coefficient of Variation 12.7 11.5-14.5 % Immature Granulocyte % (Auto) 0.4 % Immature Granulocyte # (Auto) 0.03 0.00-0.02 K/uL Sodium Level 138 136-145 mmol/L Potassium Level 3.8 3.5-5.1 mmol/L Chloride Level 105 98-107 mmol/L Carbon Dioxide Level 23 21-32 mmol/L Anion Gap 10.0 3-11 mmol/L Blood Urea Nitrogen 17 7-18 mg/dl Creatinine 1.16 0.60-1.40 mg/dl Est Creatinine Clear Calc Drug Dose 102.8 ml/min Estimated GFR () 98.8 Estimated GFR (Non- 85.2 BUN/Creatinine Ratio 15.0 10-20 Random Glucose 102 70-99 mg/dl Calcium Level 8.7 8.5-10.1 mg/dl Magnesium Level 2.3 1.8-2.4 mg/dl Total Bilirubin 1.0 0.2-1 mg/dl Aspartate Amino Transf (AST/SGOT) 21 15-37 U/L Alanine Aminotransferase (ALT/SGPT) 41 12-78 U/L Alkaline Phosphatase 52 45-117 U/L Total Creatine Kinase 138 39-308 U/L Creatine Kinase MB 1.7 0.5-3.6 ng/ml Creatine Kinase MB Ratio 1.2 0-3.0 Troponin I < 0.015 0-0.045 ng/ml Total Protein 7.8 6.4-8.2 gm/dl Albumin 4.1 3.4-5.0 gm/dl Globulin 3.7 2.5-4.0 gm/dl Albumin/Globulin Ratio 1.1 0.9-2 Lipase 63 73-393 U/L Thyroid Stimulating Hormone (TSH) 15.500 0.300-4.500 uIu/ml Salicylates Level < 1.7 2.8-20 mg/dl Acetaminophen Level < 2 10-30 ug/ml Diagnostic Radiology CT ABD: There are no acute infectious or inflammatory findings in the abdomen or pelvis. CXR/ABD X ray: 1. No active disease in the chest. 2. Nonobstructing abdominal bowel gas pattern. EKG EKG, Sinus, Sinus arrhythmia Impression Assessment and Plan Nausea, Abdominal Pain: ??? Drug abuse CT ABD: no acute process Lipase normal Patient denied Drug Use Urine Tox: Positive for opiates, cocaine, marijuana IV fluids, clear liquid diet Toradol PRN Bowel regimen for constipation Mood disorder: Currently not on medications monitor Tobacco use disorder: Nicotine patch herb counselor to quit smoking H/O C.diff colitis: Denied diarrhea Check for c.diff if diarrhea reoccurs Abnormal TSH: Normal Free T4 ? subclinical hypothyroid Vs acute phase reactant Will start on low dose levothyroxine ? Syncope: ? 2/2 to drugs Unreliable history monitor in Tele for rhythm issues Check ECHO No focal deficits on exam DVT px: SCDs encourage to ambulate Code Status: Full Code Resuscitation Status VTE Prophylaxis Will order VTE Prophylaxis: Yes
[2018-01-17] MEDS ORDERED: ONDANSETRON INJ 2 MG/ML 2 ML VIAL IV PRN (19:15)
[2018-01-17] MEDS ORDERED: MoRPHine SULFATE 2 MG/ML CARP IV PRN (19:15)
[2018-01-17] MEDS ORDERED: ACETAMINOPHEN 325 MG TAB PO PRN (19:15)
[2018-01-17 20:20] VITALS: BP 137/73; PULSE 62; TEMP 36.6; O2SAT 96; Ht 172.7 cm; Wt 83.2 kg
[2018-01-17] MEDS ORDERED: IV FLUIDS COMPLETED PRN (20:30)
[2018-01-17] MEDS ORDERED: SODIUM CHLORIDE 0.9% 1000ML 1,000 ML IV ONE (21:15)
[2018-01-17] MEDS: DOCUSATE SODIUM 100 MG CAP PO SCH (22:49)
[2018-01-18] VITALS (16 sets, daily range): BP systolic 105–142; BP diastolic 71–92; PULSE 63–97; TEMP 36.4–37.2; O2SAT 94–100
[2018-01-18] MEDS: KETOROLAC TROMETHAMINE 15 MG/ML VIAL IV PRN ×3 (01:07→19:36)
[2018-01-18] MEDS: LEVOTHYROXINE 25 MCG TAB PO SCH (06:12)
[2018-01-18 06:13] LABS: HEMATOCRIT 43.4 % (42-52); HEMOGLOBIN 14.9 g/dL (14.0-18.0); MEAN CELL VOLUME 88.2 fL (80-100); MEAN CORPUSCULAR HEMOGLOBIN 30.3 pg (25-34); MEAN CORPUSCULAR HGB CONC 34.3 g/dl (32-36); PLATELET COUNT 191 K/uL (130-400); RED CELL DISTRIBUTION WIDTH CV 12.8 % (11.5-14.5); RED CELL DISTRIBUTION WIDTH SD 40.8 fL (36.4-46.3); WHITE BLOOD COUNT 6.27 K/uL (4.8-10.8)
[2018-01-18 06:45] LABS: CALCIUM 8.7 mg/dl (8.5-10.1); CREATININE 1.07 mg/dl (0.60-1.40); POTASSIUM 3.6 mmol/L (3.5-5.1)
[2018-01-18] MEDS: DOCUSATE SODIUM 100 MG CAP PO SCH (08:56)
--- NOTE | 2018-01-18 09:10 | ECHOCARDIOGRAM REPORT ---
*NOTICE TO RECEIVING [employer] [facility] This information is strictly Confidential and protected under [place] law. [place] law prohibits you from making any further disclosure of this information unless further disclosure is expressly permitted by the written consent of the person to whom it pertains or is authorized by law. A general authorization for the release of medical or other information is not sufficient for this purpose. Hospital accepts no responsibility if the information is made available to any other person, INCLUDING THE PATIENT. Interpretation Summary * Name: MONIQUE SAMANIEGO Study Date: 01/18/2018 06:34 AM BP: 115/73 mmHg * Patient Location: C.2T\S\S232\S\1 HR: 54 * : 1990 (M/d/yyyy) Gender: Male Height: 68 in * Age: 28 yrs Ethnicity: CA Weight: 196 lb * Ordering Physician: Kenrick Lawrence * Referring Physician: Self, Referred * Performed By: Judy Pascual RDCS * * Reason For Study: SYNCOPE * BSA: 2.0 m2 * -- Conclusions -- * Normal LV chamber and wall thickness. * Normal LV systolic function. * No segmental left ventricular wall motion abnormalities are noted. * Normal diastolic function. * No signficant valvular pathology. Procedure Details * A complete two-dimensional transthoracic echocardiogram was performed (2D, M-mode, Doppler and color flow Doppler). Left Ventricle * The left ventricle is normal in size. * There is normal left ventricular wall thickness. * Ejection Fraction = 60-65%. * Left ventricular systolic function is normal. * No segmental left ventricular wall motion abnormalities are noted. * The left ventricular wall motion is normal. Right Ventricle * The right ventricular cavity size is normal (basal dimension <4.2 cm in right ventricular apical 4-chamber view). * The right ventricular systolic function is normal as assessed by tricuspid annular plane systolic excursion (TAPSE) (normal >1.5 cm). Atria * The left atrial size is normal. * Right atrial size is normal. * No ASD detected; PFO is not assessed. Mitral Valve * The mitral valve is normal in structure and function. Tricuspid Valve * The tricuspid valve is normal in structure and function. Aortic Valve * The aortic valve is normal in structure and function. Pulmonic Valve * The pulmonary valve is not well seen, but the Doppler examination is normal without significant regurgitation or stenosis. Great Vessels * The aortic root is normal size. Pericardium/Pleural * There is no pericardial effusion. Left Ventricular Diastolic Function * Pulse wave TDI of the anterior and posterior mitral annulas demonstrates normal LV relaxation MMode 2D Measurements and Calculations IVSd 0.97 cm IVSs 1.7 cm LVIDd 4.9 cm LVIDs 3.1 cm LVPWd 0.94 cm LVPWs 1.7 cm IVS/LVPW 1.0 FS 37.3 % EDV(Teich) 114.2 ml ESV(Teich) 37.6 ml EF(Teich) 67.1 % EDV(cubed) 119.5 ml ESV(cubed) 29.4 ml EF(cubed) 75.4 % % IVS thick 71.1 % % LVPW thick 75.7 % LV mass(C)d 167.4 grams LV mass(C)dI 82.6 grams/m\S\2 LV mass(C)s 194.8 grams LV mass(C)sI 96.1 grams/m\S\2 SV(Teich) 76.6 ml SI(Teich) 37.8 ml/m\S\2 SV(cubed) 90.1 ml SI(cubed) 44.4 ml/m\S\2 Ao root diam 2.9 cm Ao root area 6.6 cm\S\2 LA dimension 3.6 cm LA/Ao 1.2 LVAd ap4 29.6 cm\S\2 LVLd ap4 8.8 cm EDV(MOD-sp4) 81.9 ml EDV(sp4-el) 85.1 ml LVAs ap4 17.5 cm\S\2 LVLs ap4 7.7 cm ESV(MOD-sp4) 34.8 ml ESV(sp4-el) 34.0 ml EF(MOD-sp4) 57.5 % EF(sp4-el) 60.0 % LVAd ap2 28.1 cm\S\2 LVLd ap2 8.7 cm EDV(MOD-sp2) 75.4 ml EDV(sp2-el) 77.2 ml LVAs ap2 16.2 cm\S\2 LVLs ap2 7.5 cm ESV(MOD-sp2) 29.9 ml ESV(sp2-el) 29.5 ml EF(MOD-sp2) 60.4 % EF(sp2-el) 61.8 % LVLd %diff -0.83 % EDV(MOD-bp) 79.7 ml LVLs %diff -2.20 % ESV(MOD-bp) 32.1 ml EF(MOD-bp) 59.7 % SV(MOD-sp4) 47.1 ml SI(MOD-sp4) 23.2 ml/m\S\2 SV(MOD-sp2) 45.5 ml SI(MOD-sp2) 22.4 ml/m\S\2 SV(MOD-bp) 47.6 ml SI(MOD-bp) 23.5 ml/m\S\2 SV(sp4-el) 51.1 ml SI(sp4-el) 25.2 ml/m\S\2 SV(sp2-el) 47.7 ml SI(sp2-el) 23.5 ml/m\S\2 Doppler Measurements and Calculations MV E max nunu 115.0 cm/sec MV A max nunu 60.2 cm/sec MV E/A 1.9 MV dec time 0.25 sec Ao V2 max 122.5 cm/sec Ao max PG 6.0 mmHg Ao max PG (full) 2.2 mmHg LV V1 max PG 3.8 mmHg LV V1 max 98.1 cm/sec
[2018-01-18] MEDS: NICOTINE 21 MG/24 HR TDSY TD SCH (10:27)
[2018-01-18] MEDS ORDERED: BISACODYL 5 MG TABEC PO ONE (14:00)
--- NOTE | 2018-01-18 14:11 | Gastrointestinal Consultation ---
Gastrointestinal Consultation Date of Consultation: Jan 18, 2018 Attending Physician: Dr. Cat Consulting Physician: Dr. Valles Reason for Consultation: Abdominal pain History of Present Illness Patient is a 28 year old male patient of Dr. Connors with a hx of anxiety, C-diff and chronic abdominal pain was brought to the ED yesterday because he had a syncopal episode. GI is consulted for the abdominal pain. The pt tells us that he has severe diffuse left sided abdominal pain every day. At one point, he said he had this for 2 years, another time, he said 4 years. Additionally he said that he had a colonoscopy around age 18, that his pain started then. He has not identified any aggravating or alleviating factors. After he was asked if he had blood in the stool, he said, "yes," and when asked when, he said "yesterday," that there was blood on the toilet paper and in the toilet bowel. He tells us that yesterday, while shampooing carpet, his left sided abdominal pain was so severe that he passed out. He does not recall passing out. According to the pt, he was found on the kitchen floor, unconscious. EMS was summoned and he was transported to [facility]. On arrival CT scan with IV, no oral contrast was normal. He has had 3 CT scans of the abd/pelvis for this pain, since September. One of these CTs suggested mild pericolonic stranding (Sep 2017). This had resolved on the Ct scan done in Oct 2017. There was leukocytosis in Sep (16) and Oct (12), but no elevation on this arrival. He was placed on Cipro/Flagyl for possible diverticulitis in September and was C-diff positive in October. C-diff is pending during this admission. LFTs and lipase have been normal. He was found to be hypothyroid during this visit. He denies any illegal drug use, stating that he doesn't know how/why the tox screen was positive for cocaine, opioids and marijuana. Past Medical/Surgical History Medical Problems: (1) Acute colitis Status: Acute (2) C. difficile colitis Status: Acute (3) Contusion of right forearm Status: Acute (4) Contusion of right hand Status: Acute (5) Contusion of right wrist Status: Acute (6) Diarrhea Status: Acute (7) Lower abdominal pain Status: Acute (8) Pain of right thumb Status: Acute (9) Vomiting Status: Acute (10) Work related injury Status: Acute Past Medical History: 1. Chronic abdominal pain. 2. C-diff 3. Anxiety Past Surgical History: 1. EGD 2014 Grade A esophagitis. Duodenal bx with increased intraepithelial lymphocytosis. 2. Pt reports colonoscopy at age 18 - unable to find record of this. Family History Cancer Heart disease Social History Smoking Status: Current Some Day Smoker Alcohol Use: none Drug Use: none (Denies) Marital Status: in relationship Housing Status: lives with family Occupation Status: unemployed Allergies Coded Allergies: NO KNOWN DRUG ALLERGIES (Verified Allergy, Unknown, ., 01/17/18) Current Medications Home Meds and Scripts Medications Dose Route/Sig Max Daily Dose Days Date Category No Active Prescriptions or Reported Medications Rx Review of Systems Constitutional: + chills, + sweats, + weakness (with standing) ENT: No hearing loss Respiratory: No cough Cardiac: No chest pain Abdomen: + see HPI, + pain, + nausea, + diarrhea (loose stools), + GI bleeding , No vomiting, No constipation Male : No dysuria Neuro: No memory loss Psych: No depression symptoms Heme: No abnormal bleeding/bruising Endo: No fatigue Skin: No rash, No jaundice Physical Exam Date Time Temp Pulse Resp B/P (MAP) Pulse Ox O2 Delivery O2 Flow Rate FiO2 01/18/18 12:00 95 Room Air 01/18/18 11:33 36.8 68 20 135/72 (93) 97 Room Air 01/18/18 08:00 94 Room Air 01/18/18 07:20 36.4 66 19 121/76 (91) 94 Room Air 70 128/75 (92) 79 142/87 (105) 01/18/18 04:00 36.4 63 16 115/73 (87) 97 Room Air 01/18/18 04:00 Room Air 01/18/18 00:00 95 Room Air 01/18/18 00:00 36.8 97 18 105/71 (82) 95 01/17/18 20:20 36.6 62 16 137/73 96 Room Air 01/17/18 19:38 70 14 126/72 96 Room Air 01/17/18 19:28 71 01/17/18 17:48 60 14 135/77 94 Room Air 01/17/18 16:20 77 14 126/79 98 01/17/18 14:23 86 16 145/87 99 Room Air 01/17/18 14:07 97 Room Air 01/17/18 13:41 101 01/17/18 13:39 36.8 92 16 138/100 97 Room Air General Appearance: no apparent distress (appears well) Eyes: normal inspection, EOMI Neck: supple, no adenopathy, thyroid normal Respiratory/Chest: chest non-tender, lungs clear, normal breath sounds, no accessory muscle use Cardiovascular: regular rate, rhythm, no JVD, no murmur Abdomen: normal bowel sounds, non tender (on my exam, I palpated deeply and pt who was speking about a different issue did not c/o pain. During Dr. Valles's exam later he was describing severe pain during palpation (in the same area - left upper and lower quadrants)), soft, no organomegaly Extremities: normal inspection, no pedal edema, normal capillary refill Neurologic/Psych: alert, normal mood/affect, oriented x 3 Skin: normal color, no jaundice, warm/dry, no rash Laboratory Results Last 24 Hours Test 01/17/18 13:55 01/17/18 18:20 01/17/18 18:44 01/18/18 05:45 White Blood Count 6.83 K/uL 6.27 K/uL Red Blood Count 5.05 M/uL 4.92 M/uL Hemoglobin 15.5 g/dL 14.9 g/dL Hematocrit 43.8 % 43.4 % Mean Corpuscular Volume 86.7 fL 88.2 fL Mean Corpuscular Hemoglobin 30.7 pg 30.3 pg Mean Corpuscular Hemoglobin Concent 35.4 g/dl 34.3 g/dl Platelet Count 227 K/uL 191 K/uL Mean Platelet Volume 9.9 fL 10.0 fL Neutrophils (%) (Auto) 63.1 % Lymphocytes (%) (Auto) 23.9 % Monocytes (%) (Auto) 11.0 % Eosinophils (%) (Auto) 1.3 % Basophils (%) (Auto) 0.3 % Neutrophils # (Auto) 4.31 K/uL Lymphocytes # (Auto) 1.63 K/uL Monocytes # (Auto) 0.75 K/uL Eosinophils # (Auto) 0.09 K/uL Basophils # (Auto) 0.02 K/uL RDW Standard Deviation 40.6 fL 40.8 fL RDW Coefficient of Variation 12.7 % 12.8 % Immature Granulocyte % (Auto) 0.4 % Immature Granulocyte # (Auto) 0.03 K/uL Sodium Level 138 mmol/L 138 mmol/L Potassium Level 3.8 mmol/L 3.6 mmol/L Chloride Level 105 mmol/L 106 mmol/L Carbon Dioxide Level 23 mmol/L 25 mmol/L Anion Gap 10.0 mmol/L 7.0 mmol/L Blood Urea Nitrogen 17 mg/dl 17 mg/dl Creatinine 1.16 mg/dl 1.07 mg/dl Est Creatinine Clear Calc Drug Dose 102.8 ml/min 111.4 ml/min Estimated GFR () 98.8 108.9 Estimated GFR (Non- 85.2 94.0 BUN/Creatinine Ratio 15.0 15.8 Random Glucose 102 mg/dl 87 mg/dl Calcium Level 8.7 mg/dl 8.7 mg/dl Magnesium Level 2.3 mg/dl 2.4 mg/dl Total Bilirubin 1.0 mg/dl Aspartate Amino Transf (AST/SGOT) 21 U/L Alanine Aminotransferase (ALT/SGPT) 41 U/L Alkaline Phosphatase 52 U/L Total Creatine Kinase 138 U/L Creatine Kinase MB 1.7 ng/ml Creatine Kinase MB Ratio 1.2 Troponin I < 0.015 ng/ml Total Protein 7.8 gm/dl Albumin 4.1 gm/dl Globulin 3.7 gm/dl Albumin/Globulin Ratio 1.1 Lipase 63 U/L Thyroid Stimulating Hormone (TSH) 15.500 uIu/ml 28.600 uIu/ml 14.000 uIu/ml Salicylates Level < 1.7 mg/dl Acetaminophen Level < 2 ug/ml Urine Color YELLOW Urine Appearance CLEAR Urine pH 5.5 Urine Specific [place] > 1.045 Urine Protein NEG Urine Glucose (UA) NEG Urine Ketones TRACE Urine Occult Blood NEG Urine Nitrite NEG Urine Bilirubin NEG Urine Urobilinogen NEG Urine Leukocyte Esterase NEG Urine Opiates Screen POS Urine Methadone, Qualitative NEG Urine Barbiturates NEG Urine Phencyclidine (PCP) Level NEG Ur Amphetamine/Methamphetamine NEG MDMA (Ecstasy) Screen NEG Urine Benzodiazepines Screen NEG Urine Cocaine Metabolite POS Urine Marijuana (THC) POS Free Thyroxine 1.14 ng/dl Test 01/18/18 10:48 Immunoglobulin A 186.0 mg/dL Impression Patient is a 28 year old male with chronic abdominal pain of severe years duration. Of note, his 2013 duodenal bx with increased intraepithelial lymphocytosis may suggest early Celiac Disease, though would not expect severe disease as he was endoscopically normal. Differentials considered are gastritis , duodenitis, IBD. Plan 1. EGD, Colonoscopy tomorrow. 2. Explained to the pt that cocaine can cause decreased blood flow to the large intestines which may cause bowel wall thickening on endoscopy. Pt denies having done cocaine, "recently." 3. Suspect drug seeking behavior. No narcotics please. 4. Clear liquids po today. 5. Further recommendations to follow EGD/Colonoscopy. I have seen , examined and agree with the plan as outlined by BART Kelly as above. -exam reveals soft abd -Chronic left lower quadrant pain, recent c-diff and UDS positive for cocaine and opioids -Plan for EGD/Colon as inpt
--- NOTE | 2018-01-18 16:32 | Progress Note ---
Progress Note Date of Service Jan 18, 2018. Progress Note Since seeing patient on rounds, urgent cases have presented to the hospital necessitating cancellation of upcoming procedures tomorrow. procedures can be performed as an outpatient or inpatient later this week. We will cancel preparation and informed patient personally at the bedside in which he was fine with that recommendation.
[2018-01-18] MEDS ORDERED: POLYETHYLENE (MIRALAX) 17 GM PACK PO SCH (17:00)
--- NOTE | 2018-01-18 18:37 | Progress Note ---
Medicine Progress Note Date & Time of Visit: Jan 18, 2018 at 18:15. Subjective Pt was seen and examined Lying in bed with no distress Pt said that he continues to have abdominal pain He said that his pain does not improve Tolerated clear liquid diet and would like to advance it His urine was positive for marijuana and cocaine He said that he never touched any drug not sure why the urine is positive for cocaine and marijuana Denies any chest pain, palpitation, dizziness and SOB Objective Last 8 Hrs Date Time Temp Pulse Resp B/P (MAP) Pulse Ox O2 Delivery O2 Flow Rate FiO2 01/18/18 16:00 96 Room Air 01/18/18 15:00 83 137/83 (101) 01/18/18 14:58 84 139/92 (108) 01/18/18 14:56 37.2 74 18 136/89 (105) 97 Room Air 01/18/18 12:00 95 Room Air 01/18/18 11:33 36.8 68 20 135/72 (93) 97 Room Air Physical Exam: General- No acute distress Head- atraumatic Eyes- PERRL, EOMI ENT- oropharynx clear Neck- supple, no JVD Lungs- clear to auscultation Heart- regular rhythm Abdomen- normal bowel sounds, Nontender with deep palpation while i tried to auscultate his lung. Extremities-no calf tenderness Neuro- alert, oriented x 3; PERRL, EOMI Skin- warm & dry Laboratory Results: Last 24 Hours Test 01/17/18 18:20 01/17/18 18:44 01/18/18 05:45 01/18/18 10:48 Urine Color YELLOW Urine Appearance CLEAR Urine pH 5.5 Urine Specific [place] > 1.045 Urine Protein NEG Urine Glucose (UA) NEG Urine Ketones TRACE Urine Occult Blood NEG Urine Nitrite NEG Urine Bilirubin NEG Urine Urobilinogen NEG Urine Leukocyte Esterase NEG Urine Opiates Screen POS Urine Methadone, Qualitative NEG Urine Barbiturates NEG Urine Phencyclidine (PCP) Level NEG Ur Amphetamine/Methamphetamine NEG MDMA (Ecstasy) Screen NEG Urine Benzodiazepines Screen NEG Urine Cocaine Metabolite POS Urine Marijuana (THC) POS Thyroid Stimulating Hormone (TSH) 28.600 uIu/ml 14.000 uIu/ml Free Thyroxine 1.14 ng/dl White Blood Count 6.27 K/uL Red Blood Count 4.92 M/uL Hemoglobin 14.9 g/dL Hematocrit 43.4 % Mean Corpuscular Volume 88.2 fL Mean Corpuscular Hemoglobin 30.3 pg Mean Corpuscular Hemoglobin Concent 34.3 g/dl RDW Standard Deviation 40.8 fL RDW Coefficient of Variation 12.8 % Platelet Count 191 K/uL Mean Platelet Volume 10.0 fL Sodium Level 138 mmol/L Potassium Level 3.6 mmol/L Chloride Level 106 mmol/L Carbon Dioxide Level 25 mmol/L Anion Gap 7.0 mmol/L Blood Urea Nitrogen 17 mg/dl Creatinine 1.07 mg/dl Est Creatinine Clear Calc Drug Dose 111.4 ml/min Estimated GFR () 108.9 Estimated GFR (Non- 94.0 BUN/Creatinine Ratio 15.8 Random Glucose 87 mg/dl Calcium Level 8.7 mg/dl Magnesium Level 2.4 mg/dl Immunoglobulin A 186.0 mg/dL Date/Time Source Procedure Growth Status 01/18/18 12:09 Stool C.difficile Toxin B Gene (PCR) - Final No C. difficile toxin B gene detected Complete Assessment & Plan Abdominal pain associated with Nausea Etiology unknown UDS positive for cocaine, but pt denies any illegal drug used CT abd/pelvis showed no acute infectious or inflammatory findings in the abdomen or pelvis. Tolerated clear liquid diet GI consulted Plan to get EGD/Colonoscopy in am, but since there are urgent cases presented to the hospital, procedure cancelled for tomorrow Toradol PRN Check Celiac panel Continue clear liquid diet Mood disorder Currently not on medications stable Tobacco use disorder Nicotine patch counseling on smoking cessation H/O C.diff colitis Stool for Cdiff negative Abnormal TSH: Normal Free T4 Possible subclinical hypothyroid Vs acute phase reactant Complaint of weight gain with decreasing appetite Continue levothyroxine 25mg Check TSH btw 4 to 6 weeks Syncope ? Possible vasovagal vs Illegal drug use (denies any) No arrhythmia on tele monitor No focal neuro deficits ECHO showed * Normal LV chamber and wall thickness. * Normal LV systolic function. * No segmental left ventricular wall motion abnormalities are noted. * Normal diastolic function. * No signficant valvular pathology. DVT px: On SCDs/ambulate Code Status Full Code Disposition Transfer to medical Current Inpatient Medications: Current Inpatient Medications Medications (Trade) Dose Ordered Sig/Abhinav Route Start Time Stop Time Status Last Admin Dose Admin Ioversol (Optiray 320) 100 ml UD PRN IV 01/17/18 14:00 4/6/18 13:59 Acetaminophen (Tylenol Tab) 650 mg Q4H PRN PO 01/17/18 19:15 02/16/18 19:14 Ondansetron HCl (Zofran Inj) 4 mg Q6H PRN IV 01/17/18 19:15 02/16/18 19:14 Docusate Sodium (coLACE CAP) 100 mg BID PO 01/17/18 21:00 02/16/18 20:59 01/17/18 22:49 100 MG Ketorolac Tromethamine (Toradol Inj) 15 mg Q6H PRN IV 01/17/18 19:15 01/20/18 19:14 01/18/18 07:15 15 MG Miscellaneous (Iv Fluids Completed) 1 ea PRN PRN N/A 01/17/18 20:30 01/17/19 20:29 Nicotine (Nicoderm Cq 21MG Patch) 1 patch QAM TD 01/18/18 09:00 02/17/18 08:59 01/18/18 10:27 1 PATCH Miscellaneous (Remove Nicoderm Patch) 1 ea HS N/A 01/18/18 21:00 02/17/18 20:59 Levothyroxine Sodium (Synthroid Tab) 25 mcg DAILYBB PO 01/18/18 06:00 02/17/18 05:59 01/18/18 06:12 25 MCG
[2018-01-18] MEDS ORDERED: KETOROLAC TROMETHAMINE 15 MG/ML VIAL IM ONE (21:30)
[2018-01-18] MEDS ORDERED: ACETAMINOPHEN IV 650 MG in EMPTY BAG 0 ML IV PRN (21:30)
[2018-01-18] MEDS ORDERED: IBUPROFEN 200 MG TAB PO PRN (21:30)
[2018-01-19] MEDS: LEVOTHYROXINE 25 MCG TAB PO SCH (05:58)
[2018-01-19 07:01] VITALS: BP 133/86; PULSE 66; TEMP 36.7; O2SAT 97
[2018-01-19] MEDS: DOCUSATE SODIUM 100 MG CAP PO SCH ×2 (07:41→21:19)
[2018-01-19] MEDS: NICOTINE 21 MG/24 HR TDSY TD SCH (07:41)
[2018-01-19] MEDS: KETOROLAC TROMETHAMINE 15 MG/ML VIAL IV PRN ×3 (07:42→21:19)
[2018-01-19] MEDS: DICYCLOMINE HCL 20 MG TAB PO PRN ×2 (09:17→15:20)
[2018-01-19 15:33] VITALS: O2SAT 97
[2018-01-19 16:16] VITALS: BP 120/73; PULSE 79; TEMP 36.9; O2SAT 97
--- NOTE | 2018-01-19 16:39 | Progress Note ---
Internal Med Progress Note Date of Service: Jan 19, 2018. Provider Documentation: SUBJECTIVE: Patient complains of persistent abdominal pain 89 out of 10 No complaint of diarrhea, no nausea vomiting, tolerating diet okay Evaluated by GI Scheduled for EGD colonoscopy tomorrow OBJECTIVE: Vital Signs-as noted below Exam: General-young male in no apparent distress Eyes-sclera nonicteric, pupils reactive to light ENT-moist oral mucosa Neck-no JVD Lungs-clear to auscultate no wheeze or rales Heart-regular S1-S2 Abdomen-soft, tenderness on the mid and lower abdomen, no rigidity or rebound, bowel sounds active Extremities-no rash or deformity, no lower extremity edema Neuro-alert awake oriented 3, no focal neurological deficit Lab data as noted below. ASSESSMENT & PLAN: ABDOMINAL PAIN/CHRONIC SYMPTOM -Has been an ongoing issue Leading to multiple the ER visit Numerous CT abdomen pelvis/was found to be normal study Mentions having this chronic abdominal pain since 2007 Had a colonoscopy done at [facility] in 2008 was told normal study Presents with persistent abdominal pain, nausea No vomiting episode No evidence of infection, no fever chills, normal white count, CT abdomen pelvis: No abnormality detected, no evidence of bowel obstruction, no sign of inflammation, no diverticulitis GI eval requested, appreciate input Ordered for celiac panel to rule out possible celiac disease As needed Flexeril ordered for muscle spasm Scheduled for EGD colonoscopy tomorrow for persistent symptom Ordered for n.p.o. past midnight Bowel prep will be ordered by GI team HISTORY OF DRUG ABUSE Urine tox screen positive for cocaine/marijuana Patient adamantly declines of using any illicit drug HISTORY OF DEPRESSION/MOOD DISORDER Not on any medication Denies of suicidal ideation TOBACCO ABUSE DISORDER Ordered for nicotine patch Smoking cessation counseling HISTORY OF C. DIFFICILE Patient was treated for possible acute diverticulitis in the past Developed C. difficile afterwards No reports of diarrhea Stool for C. difficile negative ABNORMAL THYROID FUNCTION TEST TSH elevated more than 18 Normal free T4 Patient reports of having low energy, decreased appetite Started with low-dose thyroid supplement levothyroxine 25 mcg daily Repeat TSH in 4-6 weeks SYNCOPE Possible vasovagal, secondary to acute abdominal pain versus illegal drug abuse No arrhythmia noted in telemetry No focal neurological deficit Echo: -Normal LV chamber and wall thickness. Normal LV systolic function. No segmental left ventricular wall motion abnormalities are noted. Normal diastolic function. No significant valvular pathology DVT PROPHYLAXIS Low risk SCD and teds Ambulate CODE STATUS: Full code DISPOSITION: Expected to be discharged home when medically stable Vital Signs: Date Time Temp Pulse Resp B/P (MAP) Pulse Ox O2 Delivery O2 Flow Rate FiO2 01/20/18 00:16 36.6 58 18 130/89 (103) 98 Room Air 01/20/18 00:00 Room Air 01/19/18 16:16 36.9 79 18 120/73 (89) 97 Room Air 01/19/18 15:33 97 Room Air 01/19/18 07:25 Room Air 01/19/18 07:01 36.7 66 18 133/86 (102) 97 Room Air
[2018-01-19] MEDS ORDERED: BISACODYL 5 MG TABEC PO ONE (17:00)
[2018-01-19] MEDS: POLYETHYLENE (MIRALAX) 17 GM PACK PO SCH (17:59)
[2018-01-20 00:16] VITALS: BP 130/89; PULSE 58; TEMP 36.6; O2SAT 98
[2018-01-20] MEDS: POLYETHYLENE (MIRALAX) 17 GM PACK PO SCH (04:48)
[2018-01-20] MEDS: LEVOTHYROXINE 25 MCG TAB PO SCH (05:59)
[2018-01-20 07:09] VITALS: BP 140/85; PULSE 70; TEMP 36.6; O2SAT 97
[2018-01-20] MEDS ORDERED: LIDOCAINE HCL 2% 2 ML VIAL (20MG/ML) ONE (10:03)
[2018-01-20] MEDS ORDERED: MIDAZOLAM HCL 1 MG/ML 2ML VIAL ONE (10:03)
[2018-01-20] MEDS ORDERED: ONDANSETRON INJ 2 MG/ML 2 ML VIAL ONE (10:04)
[2018-01-20] MEDS: DOCUSATE SODIUM 100 MG CAP PO SCH ×2 (10:04→19:48)
[2018-01-20] MEDS ORDERED: PROPOFOL IV EMULSION 10 MG/ML 20 ML VIAL IV ONE ×2 (10:04→11:22)
[2018-01-20] MEDS: NICOTINE 21 MG/24 HR TDSY TD SCH (10:05)
--- NOTE | 2018-01-20 10:22 | History & Physical Bridge Note ---
H&P Re-Evaluation Bridge Note: I have examined the patient, reviewed the History & Physical and in the interval since the performance of the History & Physical I have noted the following changes of clinical significance: No changes noted Mr. Sumner presented with an idiopathic cause of abdominal pain presenting for EGD and colonoscopy. Has a history of C. difficile. We will plan on EGD colonoscopy today with biopsies.
--- NOTE | 2018-01-20 11:25 | GI REPORT ---
Procedure Date: 01/20/2018 10:13 AM Procedure: Upper GI endoscopy Indications: Generalized abdominal pain Medicines: Monitored Anesthesia Care Complications: No immediate complications. Estimated blood loss: None. Estimated Blood Loss: Estimated blood loss: none. Procedure: Pre-Anesthesia Assessment: - Pre-Anesthesia Assessment: - Prior to the procedure, a History and Physical was performed, and patient medications, allergies and sensitivities were reviewed. The patient's tolerance of previous anesthesia was reviewed. Please see [employer] for complete details. - The risks and benefits of the procedure and the sedation options and risks were discussed with the patient. All questions were answered and informed consent was obtained. - Patient identification and proposed procedure were verified prior to the procedure by the physician and the nurse. The procedure was verified in the pre-procedure area in the procedure room. After obtaining informed consent, the endoscope was passed carefully and meticuously under direct vision and only advanced when the lumen was clearly identified, C02 insuflation was utilized throughout the entirity of the procedure. Throughout the procedure, the patient's blood pressure, pulse, and oxygen saturations were monitored continuously. After obtaining informed consent, the endoscope was passed under direct vision. Throughout the procedure, the patient's blood pressure, pulse, and oxygen saturations were monitored continuously. The scope was introduced through the mouth, and advanced to the second part of duodenum. The upper GI endoscopy was accomplished without difficulty. The patient tolerated the procedure well. Findings: A hiatal hernia was present. A few localized, small non-bleeding erosions were found in the gastric antrum. There were no stigmata of recent bleeding. Biopsies were taken with a cold forceps for histology. Multiple diffuse erosions without bleeding were found in the duodenal bulb and in the second portion of the duodenum. Biopsies were taken with a cold forceps for histology. Impression: - Hiatal hernia. - Non-bleeding erosive gastropathy. Biopsied. - Duodenal erosions without bleeding. Biopsied. Recommendation: - Await pathology results. - Return patient to [facility] for possible discharge same day. - Use Prilosec (omeprazole) 40 mg PO BID indefinitely. - Repeat upper endoscopy in 2 months to check healing. - Return to referring physician as previously scheduled. - Avoidance of NSAIDs Tomy Valles MD 01/20/2018 11:25:09 AM This report has been signed electronically. Note Initiated On: 01/20/2018 10:13 AM I attest to the content of the Intraoperative Record and orders documented therein, exceptions below
--- NOTE | 2018-01-20 11:28 | GI REPORT ---
Procedure Date: 01/20/2018 10:34 AM Procedure: Colonoscopy Indications: Generalized abdominal pain Medicines: Monitored Anesthesia Care Complications: No immediate complications. Estimated blood loss: None. Estimated Blood Loss: Estimated blood loss: none. Procedure: Pre-Anesthesia Assessment: - Pre-Anesthesia Assessment: - Prior to the procedure, a History and Physical was performed, and patient medications, allergies and sensitivities were reviewed. The patient's tolerance of previous anesthesia was reviewed. Please see [employer] for complete details. - The risks and benefits of the procedure and the sedation options and risks were discussed with the patient. All questions were answered and informed consent was obtained. - Patient identification and proposed procedure were verified prior to the procedure by the physician and the nurse. The procedure was verified in the pre-procedure area in the procedure room. After obtaining informed consent, the endoscope was passed carefully and meticuously under direct vision and only advanced when the lumen was clearly identified, C02 insuflation was utilized throughout the entirity of the procedure. Throughout the procedure, the patient's blood pressure, pulse, and oxygen saturations were monitored continuously. After I obtained informed consent, the scope was passed under direct vision. Throughout the procedure, the patient's blood pressure, pulse, and oxygen saturations were monitored continuously. The scope was introduced through the anus and advanced to the terminal ileum, with identification of the appendiceal orifice and IC valve. The colonoscopy was performed without difficulty. The patient tolerated the procedure well. The quality of the bowel preparation was good. Findings: The terminal ileum appeared normal. Biopsies were taken with a cold forceps for histology. Hemorrhoids were found during retroflexion. The hemorrhoids were small. A 3 mm polyp was found in the ascending colon. The polyp was sessile. The polyp was removed with a jumbo cold forceps. Resection and retrieval were complete. The exam was otherwise without abnormality on direct and retroflexion views. Random biopsies were obtained with cold jumbo forceps for histology in the entire colon. Fluid aspiration for bacterial cultures, Clostridium difficile and ova and parasites was performed. Impression: - The examined portion of the ileum was normal. Biopsied. - Hemorrhoids. - One 3 mm polyp in the ascending colon, removed with a jumbo cold forceps. Resected and retrieved. - The examination was otherwise normal on direct and retroflexion views. - Random biopsies were obtained in the entire colon. - Fluid aspiration was performed. Recommendation: - Return patient to [facility] for possible discharge same day. - Await pathology results. - Advance diet as tolerated - Bentyl or levsin prn for pain Tomy Valels MD 01/20/2018 11:27:39 AM This report has been signed electronically. Note Initiated On: 01/20/2018 10:34 AM I attest to the content of the Intraoperative Record and orders documented therein, exceptions below
--- NOTE | 2018-01-20 11:50 | Anesthesiology Progress Note ---
Anesthesia Post Op Note Date & Time Jan 20, 2018 at 11:50 Vital Signs Pain Intensity: 0 Vital Signs Past 12 Hours Date Time Temp Pulse Resp B/P (MAP) Pulse Ox O2 Delivery O2 Flow Rate FiO2 01/20/18 11:46 67 18 109/60 (76) 96 Room Air 01/20/18 11:39 72 18 112/60 (77) 96 Room Air 01/20/18 11:34 83 18 93/51 (65) 95 Room Air 01/20/18 11:27 88 18 90/59 (69) 95 Room Air 01/20/18 10:11 36.8 66 18 141/75 (97) 98 Room Air 01/20/18 10:03 Room Air 01/20/18 07:09 36.6 70 18 140/85 (103) 97 Room Air 01/20/18 00:16 36.6 58 18 130/89 (103) 98 Room Air 01/20/18 00:00 Room Air Notes Mental Status: alert / awake / arousable, participated in evaluation Pt Amnestic to Procedure: Yes Nausea / Vomiting: adequately controlled Pain: adequately controlled Airway Patency, RR, SpO2: stable & adequate BP & HR: stable & adequate Hydration State: stable & adequate Anesthetic Complications: no major complications apparent
[2018-01-20 12:01] VITALS: BP 119/74; PULSE 60; TEMP 36.7; O2SAT 96
[2018-01-20 15:43] VITALS: O2SAT 96
[2018-01-20 15:51] VITALS: BP 124/69; PULSE 73; TEMP 36.8; O2SAT 98
--- NOTE | 2018-01-20 16:17 | Progress Note ---
Internal Med Progress Note Date of Service: Jan 20, 2018. Provider Documentation: SUBJECTIVE: S/P EGD today no complain of nausea or vomiting tolerating diet well abdominal pain has improved wants to go home tomorrow OBJECTIVE: Vital Signs-as noted below Exam: General-young male in no apparent distress Eyes-sclera nonicteric, pupils reactive to light ENT-moist oral mucosa Neck-no JVD Lungs-clear to auscultate no wheeze or rales Heart-regular S1-S2 Abdomen-soft, tenderness on the mid and lower abdomen, no rigidity or rebound, bowel sounds active Extremities-no rash or deformity, no lower extremity edema Neuro-alert awake oriented 3, no focal neurological deficit Lab data as noted below. ASSESSMENT & PLAN: ABDOMINAL PAIN/CHRONIC SYMPTOM -Has been an ongoing issue Leading to multiple the ER visit Numerous CT abdomen pelvis/was found to be normal study Mentions having this chronic abdominal pain since 2007 Had a colonoscopy done at [facility] in 2008 was told normal study Presents with persistent abdominal pain, nausea No vomiting episode No evidence of infection, no fever chills, normal white count, CT abdomen pelvis: No abnormality detected, no evidence of bowel obstruction, no sign of inflammation, no diverticulitis GI eval requested, appreciate input Ordered for celiac panel to rule out possible celiac disease As needed Flexeril ordered for muscle spasm s/p EGD /COLONOSCOPY today shows : Findings: A hiatal hernia was present. A few localized, small non-bleeding erosions were found in the gastric antrum. There were no stigmata of recent bleeding. Biopsies were taken with a cold forceps for histology. Multiple diffuse erosions without bleeding were found in the duodenal bulb and in the second portion of the duodenum. Biopsies were taken with a cold forceps for histology. Impression: - Hiatal hernia. - Non-bleeding erosive gastropathy. Biopsied. - Duodenal erosions without bleeding. Biopsied. Recommendation: - Await pathology results. - Return patient to [facility] for possible discharge same day. - Use Prilosec (omeprazole) 40 mg PO BID indefinitely. - Repeat upper endoscopy in 2 months to check healing. - Return to referring physician as previously scheduled. - Avoidance of NSAIDs COLONOSCOPY : Impression: - The examined portion of the ileum was normal. Biopsied. - Hemorrhoids. - One 3 mm polyp in the ascending colon, removed with a jumbo cold forceps. Resected and retrieved. - The examination was otherwise normal on direct and retroflexion views. - Random biopsies were obtained in the entire colon. - Fluid aspiration was performed. HISTORY OF DRUG ABUSE Urine tox screen positive for cocaine/marijuana Patient adamantly declines of using any illicit drug HISTORY OF DEPRESSION/MOOD DISORDER Not on any medication Denies of suicidal ideation TOBACCO ABUSE DISORDER Ordered for nicotine patch Smoking cessation counseling HISTORY OF C. DIFFICILE Patient was treated for possible acute diverticulitis in the past Developed C. difficile afterwards No reports of diarrhea Stool for C. difficile negative ABNORMAL THYROID FUNCTION TEST TSH elevated more than 18 Normal free T4 Patient reports of having low energy, decreased appetite Started with low-dose thyroid supplement levothyroxine 25 mcg daily Repeat TSH in 4-6 weeks SYNCOPE Possible vasovagal, secondary to acute abdominal pain versus illegal drug abuse No arrhythmia noted in telemetry No focal neurological deficit Echo: -Normal LV chamber and wall thickness. Normal LV systolic function. No segmental left ventricular wall motion abnormalities are noted. Normal diastolic function. No significant valvular pathology DVT PROPHYLAXIS Low risk SCD and teds Ambulate CODE STATUS: Full code DISPOSITION: possible discharge home tomorrow Family Medicine follow up with Dr Edmonds GI follow up with Dr Valles in 2 months for repeat EGD Vital Signs: Date Time Temp Pulse Resp B/P (MAP) Pulse Ox O2 Delivery O2 Flow Rate FiO2 01/21/18 08:00 Room Air 01/21/18 07:39 36.6 67 16 121/76 (91) 97 Room Air 01/21/18 00:27 Room Air 01/20/18 23:35 37.0 77 18 123/78 (93) 98 Room Air 01/20/18 15:51 36.8 73 16 124/69 (87) 98 Room Air 01/20/18 15:43 96 Room Air 01/20/18 12:01 36.7 60 20 119/74 (89) 96 Room Air 01/20/18 11:46 67 18 109/60 (76) 96 Room Air 01/20/18 11:39 72 18 112/60 (77) 96 Room Air Lab Results:
[2018-01-20] MEDS ORDERED: OMEP20CA9 PO ×2 (17:01→17:10)
[2018-01-20] MEDS ORDERED: SYN25 PO (17:01)
[2018-01-20] MEDS ORDERED: BNT20 PO (17:01)
--- NOTE | 2018-01-20 17:03 | Discharge Instructions ---
Discharge Instructions Date of Service Jan 20, 2018. Admission Reason for Admission: Abdominal Pain; Syncope Discharge Discharge Diagnosis / Problem: ABDOMINAL PAIN /PETIC ULCER DISEASE Discharge Goals Goal(s): Increase independence, Improve disease control, Diagnostic testing, Therapeutic intervention Activity Recommendations Activity Limitations: resume your previous activity . Instructions / Follow-Up Instructions / Follow-Up HOSPITAL FOLLOW UP 01/26/2018 at 12: [address] Bhavana Razo, [facility] REPEAT EGD IN 2-3 MONTHS TO ASSESS HEALING OF GASTRIC ULCERS AVOID SMOKING TOBACCO WILL CAUSE WORSENING OF ACID REFLUX REPEAT THYROID FUNCTION TEST IN 4-6 WEEKS DO NOT TAKE ASPIRIN , MOTRIN, ALEVE, NAPROXEN , IBUPROFEN , MOBIC Current Hospital Diet Patient's current hospital diet: Regular Diet Discharge Diet Recommended Diet: Regular Diet Procedures Procedures Performed: COLONOSCOPY, POLYPECTOMY, BX; EGD, BX Pending Studies Studies pending at discharge: no Medical Emergencies . Who to Call and When: Medical Emergencies: If at any time you feel your situation is an emergency, please call 911 immediately. . Non-Emergent Contact Non-Emergency issues call your: Primary Care Provider . . "Provider Documentation" section prepared by Taina Jones. .
[2018-01-20 23:35] VITALS: BP 123/78; PULSE 77; TEMP 37; O2SAT 98
[2018-01-21] MEDS: LEVOTHYROXINE 25 MCG TAB PO SCH (05:29)
[2018-01-21 07:39] VITALS: BP 121/76; PULSE 67; TEMP 36.6; O2SAT 97
[2018-01-21] MEDS: NICOTINE 21 MG/24 HR TDSY TD SCH (08:00)
[2018-01-21] MEDS: DOCUSATE SODIUM 100 MG CAP PO SCH (08:17)
[2018-01-21 11:39] VITALS: BP 121/76; PULSE 67; TEMP 36.6; O2SAT 97
--- NOTE | 2018-01-21 12:52 | Discharge Summary ---
Discharge Summary Date of Service Jan 21, 2018. Discharge Summary Admission Date: Jan 17, 2018 at 19:22 Discharge Date: Jan 21, 2018 Discharge Disposition: Home Principal Diagnosis: ABDOMINAL PAIN /PEPTIC ULCER DISEASE Procedures: EGD /colonoscopy Consultations: [facility] Medication Reconciliation New Medications: Omeprazole (Prilosec) 20 Mg Cap 40 MG PO BID for 30 Days, #120 CAP 2 Refills Dicyclomine HCl (Dicyclomine HCl) 20 Mg Tab 20 MG PO TID PRN for abd pain, #90 TAB 1 Refill Levothyroxine Sodium (Synthroid) 25 Mcg Tab 25 MCG PO DAILYBB for 30 Days, #30 TAB 2 Refills Referrals At Discharge Follow up Referrals: Animal Rehabilitator Referral - Within 3 Months with Tomy Valles MD Admission Information HPI (per Admitting provider): Patient is a 28 yr male with PMH of Mood disorder, Tobacco use disorder, H/O C.diff colitis presents with history of abdominal pain, nausea and possible syncope. He was diagnosed with C.diff colitis in Oct 2017, and completed the antibiotic course as prescribed. Patient states he had LLQ abdominal pain on multiple occasions in the past and was upset that he was not diagnosed as to why he gets the pain. He reports abdominal pain to be excruciating, non radiating, associated with nausea, non aggravating/relieving factors. Reports his last BM was 2 days ago. Patient reports he was found on the floor by his son and he doesn't remember the events that occurred. Reports that he had a colonoscopy 3 yrs ago which was normal. Patient denies any alcohol or drug use. Denies any history of chest pain, SOB, dizziness, pedal edema, cough, fever, chills, weakness, numbness, change in vision, vomiting, diarrhea. Physical Exam (per Admitting): General Appearance: WD/WN, no apparent distress, + mild distress (secondary to pain) Head: normocephalic, atraumatic Eyes: normal inspection, PERRL, EOMI ENT: normal ENT inspection, hearing grossly normal Neck: supple, trachea midline Respiratory/Chest: chest non-tender, lungs clear, normal breath sounds, no respiratory distress, no accessory muscle use Cardiovascular: regular rate, rhythm, no edema, + tachycardia Abdomen/GI: normal bowel sounds, soft, + tenderness (LUQ and LLQ) Back: normal inspection Extremities/Musculoskelatal: normal inspection, no pedal edema 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, no motor/sensory deficits, alert , oriented x 3 Skin: normal color, warm/dry Hospital Course ABDOMINAL PAIN/CHRONIC SYMPTOM -Has been an ongoing issue Leading to multiple the ER visit Numerous CT abdomen pelvis/was found to be normal study Mentions having this chronic abdominal pain since 2007 Had a colonoscopy done at [facility] in 2008 was told normal study Presents with persistent abdominal pain, nausea No vomiting episode No evidence of infection, no fever chills, normal white count, CT abdomen pelvis: No abnormality detected, no evidence of bowel obstruction, no sign of inflammation, no diverticulitis GI eval requested, appreciate input Ordered for celiac panel to rule out possible celiac disease As needed Flexeril ordered for muscle spasm s/p EGD /COLONOSCOPY today shows : Findings: A hiatal hernia was present. A few localized, small non-bleeding erosions were found in the gastric antrum. There were no stigmata of recent bleeding. Biopsies were taken with a cold forceps for histology. Multiple diffuse erosions without bleeding were found in the duodenal bulb and in the second portion of the duodenum. Biopsies were taken with a cold forceps for histology. Impression: - Hiatal hernia. - Non-bleeding erosive gastropathy. Biopsied. - Duodenal erosions without bleeding. Biopsied. Recommendation: - Await pathology results. - [facility] patient to [facility] for possible discharge same day. - Use Prilosec (omeprazole) 40 mg PO BID indefinitely. - Repeat upper endoscopy in 2 months to check healing. - Return to referring physician as previously scheduled. - Avoidance of NSAIDs COLONOSCOPY : Impression: - The examined portion of the ileum was normal. Biopsied. - Hemorrhoids. - One 3 mm polyp in the ascending colon, removed with a jumbo cold forceps. Resected and retrieved. - The examination was otherwise normal on direct and retroflexion views. - Random biopsies were obtained in the entire colon. - Fluid aspiration was performed. HISTORY OF DRUG ABUSE Urine tox screen positive for cocaine/marijuana Patient adamantly declines of using any illicit drug HISTORY OF DEPRESSION/MOOD DISORDER Not on any medication Denies of suicidal ideation TOBACCO ABUSE DISORDER Ordered for nicotine patch Smoking cessation counseling HISTORY OF C. DIFFICILE Patient was treated for possible acute diverticulitis in the past Developed C. difficile afterwards No reports of diarrhea Stool for C. difficile negative ABNORMAL THYROID FUNCTION TEST TSH elevated more than 18 Normal free T4 Patient reports of having low energy, decreased appetite Started with low-dose thyroid supplement levothyroxine 25 mcg daily Repeat TSH in 4-6 weeks SYNCOPE Possible vasovagal, secondary to acute abdominal pain versus illegal drug abuse No arrhythmia noted in telemetry No focal neurological deficit Echo: -Normal LV chamber and wall thickness. Normal LV systolic function. No segmental left ventricular wall motion abnormalities are noted. Normal diastolic function. No significant valvular pathology DVT PROPHYLAXIS Low risk SCD and teds Ambulate CODE STATUS: Full code DISPOSITION: possible discharge home tomorrow [facility] Medicine follow up with Dr Edmonds GI follow up with Dr Valles in 2 months for repeat EGD Discharge Instructions DI: Medical v5 Discharge Instructions Date of Service Jan 20, 2018. Admission Reason for Admission: Abdominal Pain; Syncope Discharge Discharge Diagnosis / Problem: ABDOMINAL PAIN /PEPTIC ULCER DISEASE Discharge Goals Goal(s): Increase independence, Improve disease control, Diagnostic testing, Therapeutic intervention Activity Recommendations Activity Limitations: resume your previous activity . Instructions / Follow-Up Instructions / Follow-Up HOSPITAL FOLLOW UP 01/26/2018 at 12: [address] Bhavana Razo, [facility] REPEAT EGD IN 2-3 MONTHS TO ASSESS HEALING OF GASTRIC ULCERS AVOID SMOKING TOBACCO WILL CAUSE WORSENING OF ACID REFLUX REPEAT THYROID FUNCTION TEST IN 4-6 WEEKS DO NOT TAKE ASPIRIN , MOTRIN, ALEVE, NAPROXEN , IBUPROFEN , MOBIC Current Hospital Diet Patient's current hospital diet: Regular Diet Discharge Diet Recommended Diet: Regular Diet Procedures Procedures Performed: COLONOSCOPY, POLYPECTOMY, BX; EGD, BX Pending Studies Studies pending at discharge: no Medical Emergencies . Who to Call and When: Medical Emergencies: If at any time you feel your situation is an emergency, please call 911 immediately. . Non-Emergent Contact Non-Emergency issues call your: Primary Care Provider . . "Provider Documentation" section prepared by Taina Jones. . Additional Copies To Bhavana Razo D.O.
== END 2018-01-21 11:52 | disposition home or self-care (01) ==
LOC: EDBD 13:38 → C.EDA 13:40 → C.2T 19:22 → UNDOADMOB 19:22 → ENRESERV 19:42 → C.MS4W 01-18 20:49
PROVIDERS: ADMIT Internal Medicine; ATTEND Hospitalist
DX: R10.84 Generalized abdominal pain (principal); D12.2 Benign neoplasm of ascending colon; K29.50 Unspecified chronic gastritis without bleeding; K29.80 Duodenitis without bleeding; K27.9 Peptic ulcer, site unspecified, unspecified as acute or chronic, without hemorrhage or perforation; R55 Syncope and collapse; K44.9 Diaphragmatic hernia without obstruction or gangrene; K64.8 Other hemorrhoids; F17.200 Nicotine dependence, unspecified, uncomplicated; F32.9 Major depressive disorder, single episode, unspecified; Z86.19 Personal history of other infectious and parasitic diseases; Z82.49 Family history of ischemic heart disease and other diseases of the circulatory system

== ENCOUNTER 2020-05-09 12:41 | Inpatient (IN) ==
--- NOTE | 2020-05-09 12:51 | Emergency Department Note ---
Impression & Plan Low back pain radiating to left lower extremity, Lumbar disc herniation, Failure of outpatient treatment, Sciatica ED Provider Note NAME: MONIQUE SAMANIEGO AGE: 30 SEX: M : 1990 ARRIVES VIA: Walk-In INFORMANT: [Patient][notes] ED PROVIDER(S): [Dorian Ferrell MD] CHIEF COMPLAINT: Back pain and left leg pain HISTORY OF PRESENT ILLNESS: The patient is a 30-year-old male who states that for 2 months, he has had some lower back pain and some left leg pain. He states that there was no fall or trauma and he has no history of back issues. The patient states that for the last few weeks, the pain has worsened. He states he had an MRI a short time ago through [facility] that showed an L5-S1 broad posterior disc bulge with superimposed left paracentral disc herniation extending downward and impinging on left S1 nerve root. The patient states that he is currently on gabapentin, meloxicam and oxycodone. This is not helping him. His pain is a 10/10 and radiates down his left leg. His left leg feels weak at times. He has not had bowel or bladder issues. The patient states that he saw a spinal surgeon today, Dr. Rivera. He was referred to the ED, he is likely to have surgery tomorrow. He was told to present to the ED for evaluation, symptom control and hospitalization. REVIEW OF SYSTEMS: See HPI for pertinent positives and negatives. A total of ten systems were reviewed and were otherwise negative. PMHx/PSHx: See Below SOCIAL HISTORY: See Below. PHYSICAL EXAM: GENERAL: Patient is in mild distress from pain. HEENT: No acute trauma, normocephalic atraumatic, mucous membranes moist, no nasal congestion, no scleral icterus. NECK: No stridor, no adenopathy, no meningismus, trachea is midline. LUNGS: Clear to auscultation bilaterally, no wheeze, no rhonchi, breath sounds equal. HEART: Without murmurs gallops or rubs, regular rate and rhythm. ABDOMEN: Soft, nontender, bowel sounds positive, no hernias, no peritonitis. EXTREMITIES: No cyanosis or edema, full range of motion of all the joints without pain or difficulty, no signs for acute trauma. Movement of the left leg causes pain in the upper leg and back. NEUROLOGIC: Oriented x 3, no acute motor or sensory deficits. He has 2/4 reflexes in the lower extremities at the patella and Achilles bilaterally. SKIN: No rash, no jaundice, no diaphoresis. DIFFERENTIAL DIAGNOSIS: Musculoskeletal, disc herniation, fracture, metastatic disease, cord compress ion, discitis, sciatica, cauda equina, infection, aortic disease, renal colic, gastrointestinal, as well as other pathologies. EMERGENCY DEPARTMENT COURSE/PROCEDURES: MEDICAL DECISION MAKING: There is no leukocytosis or concerning anemia. There is a normal platelet count. No significant electrolyte abnormality or kidney failure. The patient was not toxic or febrile. On exam, he did have reflexes that seemed equal in both lower extremities. He has had no bowel or bladder issues. I did review the patient's MRI which was done as an outpatient. It does show a disc herniation with nerve compression. The patient had been seen earlier by spinal surgery. He was referred to the hospital for pain control, he is to be hospitalized for potential lumbar surgery tomorrow. He has failed outpatient treatment. The patient received IV saline. He received IV Dilaudid for pain control. He was given IV Zofran for nausea. He seems more comfortable. I did speak with spinal surgery. Patient is being hospitalized. Case management has been involved. Past Med/Surg History Medical History No pertinent past medical history Social History Smoking Status: Current every day smoker Tobacco Type: Cigarettes Preferred Language: Divehi Feels Safe at Home: Yes Allergies Allergies Allergy/AdvReac Type Severity Reaction Status Date / Time No Known Drug Allergies Allergy Unknown . Verified 05/09/20 13:22 Home Meds Home Medications Medication Instructions Recorded Confirmed gabapentin 300 mg PO QAM 05/09/20 05/09/20 meloxicam 15 mg PO QAM PRN 05/09/20 05/09/20 prednisone 40 mg PO QAM 05/09/20 05/09/20 Previous Rx's Medication Instructions Recorded oxycodone 5 mg PO Q6H PRN #10 tab 05/02/20 Results & Data (ED) Vital Signs Vital Signs - 24 hr 05/09/20 12:42 05/09/20 13:33 05/09/20 13:34 Temperature 37.2 C Temperature Source Oral Pulse Rate 110 H Pulse Rate [Right Finger] 98 H Pulse Rhythm Regular Pulse Strength Normal Respiratory Rate 18 20 Respiratory Effort / Characteristics Non-Labored Spontaneous Respiratory Depth Normal Respiratory Pattern Regular Blood Pressure 153/105 H Blood Pressure [Left Arm] 126/85 Blood Pressure Mean 121 Blood Pressure Mean [Left Arm] 98 Pulse Oximetry 95 96 Oxygen Delivery Method Room Air Room Air Room Air Sepsis Recent Fever Within 48 Hours No Sepsis New/Unexplained Change in Mental Status No Sepsis Action Taken by Nursing No Action Required Home Medications Current Medication List: was personally reviewed by me Laboratory Data Attestation: I reviewed the patient's lab results. Result diagrams: 05/09/20 13:21 05/09/20 13:21 Lab Results 05/09/20 05/09/20 Range/Units 13:21 13:21 WBC 6.69 (4.8-10.8) K/uL RBC 5.34 (4.7-6.1) M/uL Hgb 15.9 (14.0-18.0) g/dL Hct 45.7 (42-52) % MCV 85.6 (80-100) fL MCH 29.8 (25-34) pg MCHC 34.8 (32-36) g/dL RDW Std Deviation 41.1 (36.4-46.3) fL RDW Coeff of Can 13.2 (11.5-14.5) % Plt Count 246 (130-400) K/uL MPV 10.3 (7.4-10.4) fL Sodium 142 (136-145) mmol/L Potassium 3.7 (3.5-5.1) mmol/L Chloride 111 H (98-107) mmol/L Carbon Dioxide 25 (21-32) mmol/L Anion Gap 6.0 (3-11) BUN 15 (7-18) mg/dl Creatinine 0.92 (0.6-1.4) mg/dl Est Cr Clr Drug Dosing 113.6 ml/min Est GFR ( Amer) 128.9 Est GFR (Non-Af Amer) 111.2 BUN/Creatinine Ratio 16.7 (10-20) Glucose 91 (70-99) mg/dl Calcium 8.8 (8.5-10.1) mg/dl Administered Medications Hydromorphone HCl (Dilaudid) 1 mg IV Q30M PRN PRN Reason: Pain Stop: 05/23/20 12:58 Last Admin: 05/09/20 14:12 Dose: 1 mg Documented by: [id number] Admin: 05/09/20 13:29 Dose: 1 mg Documented by: [id number] Discontinued Medications Sodium Chloride (Nss 1000ml) 500 mls @ 999 mls/hr IV .Q31M ONE Stop: 05/09/20 13:29 Last Infusion: 05/09/20 14:12 Dose: 0 mls/hr Documented by: [id number] Admin: 05/09/20 13:29 Dose: 999 mls/hr Documented by: [id number] Ondansetron HCl (Zofran) 4 mg IV NOW STA Stop: 05/09/20 13:00 Last Admin: 05/09/20 13:29 Dose: 4 mg Documented by: [id number] Imaging Data Radiologist's Impression: MRI of lumbar spine without contrast: At the L5-S1 level there is a broad posterior disc bulge with a superimposed left paracentral disc herniation extending downward to the left lateral recess and impinging the left S1 nerve root. No spinal stenosis or neuronal foraminal narrowing is seen at the L1-L2 through L4-L5 levels. Blood Pressure Blood Pressure Findings: Elevated blood pressure Blood Pressure Disposition: further management by hospitalist Discharge Plan Visit Data *Final* Discharge Date/Time: 05/09/20 14:36 Chief Complaint: Leg Injury/Pain Stated Complaint: LEFT LEG AND FOOT PAIN ED Provider: Dorian Ferrell Discharge Problem: Low back pain radiating to left lower extremity, Lumbar disc herniation, Failure of outpatient treatment, Sciatica Patient Disposition: Admitted As Inpatient Condition: Good Discharge Instructions Interventions: ED Discharge Assessment Last Done: 05/09/20 14:36 Discharge Problem: Sciatica Qualifiers: Laterality: left Qualified Code(s): M54.32 - Sciatica, left side
[2020-05-09] MEDS ORDERED: ONDANSETRON INJ 2 MG/ML 2 ML VIAL IV STA (12:59)
[2020-05-09] MEDS ORDERED: SODIUM CHLORIDE 0.9% 1000ML 500 ML IV ONE (12:59)
[2020-05-09] MEDS: HYDROmorphone INJ 1 MG/ML SYRINGE IV PRN ×5 (13:29→23:42)
[2020-05-09 13:36] LABS: Hematocrit (blood only) 45.7 % (42-52); Hemoglobin 15.9 g/dL (14.0-18.0); Mean Corpuscular Hemoglobin 29.8 pg (25-34); Mean Corpuscular Hgb Conc 34.8 g/dL (32-36); Mean Corpuscular Volume 85.6 fL (80-100); Mean Platelet Volume 10.3 fL (7.4-10.4); Platelet Count 246 K/uL (130-400); RDW Coefficient of Variation 13.2 % (11.5-14.5); RDW Standard Deviation 41.1 fL (36.4-46.3); Red Blood Count 5.34 M/uL (4.7-6.1); White Blood Count 6.69 K/uL (4.8-10.8)
[2020-05-09 13:52] LABS: BUN Creatinine Ratio 16.7 (10-20); Calcium 8.8 mg/dl (8.5-10.1); Creatinine Clr Calc Pharmacy 113.6 ml/min; Est GFR (African American) 128.9; Est GFR (Non-African American) 111.2; Potassium 3.7 mmol/L (3.5-5.1)
--- NOTE | 2020-05-09 14:43 | History & Physical Report ---
Date of Service May 09, 2020 Assessment & Plan (1) Lumbar disc herniation with radiculopathy: At this time a lengthy discussion with this patient and his girlfriend reviewing his clinical presentation and imaging. At this point he is having marked decline in status with neurologic deficit and severe pain. Is been unable to sleep for several nights. He is failed oral steroids gabapentin and various narcotics. Subsequently consider surgical invention. He does have evidence of disc base collapse and retrolisthesis at L5-S1 placing him at marked increased risk for recurrent disc herniation and instability. Subsequently I am recommending a lumbar decompression and fusion L5-S1. This would allow complete nerve decompression and stabilization of the L5-S1 level avoiding risk of further collapse, retrolisthesis and recurrent disc herniation. Risk benefits pros cons and alternatives were outlined in detail. Risk include but not limited to anesthesia blindness stroke paralysis nerve damage blood loss transfusion infection requiring reoperation. This time he will be placed in the hospital made n.p.o. after midnight IV narcotics for pain control and plan for the OR in the a.m. on an urgent basis. Present on Admission?: Yes History of Present Illness Chief Complaint: Back and left leg pain with weakness Primary Care Provider: Bhavana Razo, This is a 3-year-old male that presents with approximately 2 months of back and left leg symptoms that are intermittent in nature. Unfortunately the past 2 weeks he had dramatic severe decline in status with pain radiating into the left buttock posterior thigh below the knee into the heel. The right lower extremity is relatively asymptomatic. He has been unable to work for past 2 weeks. He has been in and out of his doctor's office as well as the ER for pain control. He notes pain shooting into his groin with intermittent numbness in the perineal area. He has significant strength deficits with weakness affecting the left plantar flexion and breakaway pain. Allergies Allergy/AdvReac Type Severity Reaction Status Date / Time No Known Drug Allergies Allergy Unknown . Verified 05/09/20 13:22 Home Medications Home Medications Medication Instructions Recorded Confirmed Type oxycodone 5 mg PO Q6H PRN #10 tab 05/02/20 05/09/20 Rx gabapentin 300 mg PO QAM 05/09/20 05/09/20 History meloxicam 15 mg PO QAM PRN 07/23/20 07/23/20 History prednisone 40 mg PO QAM 05/09/20 05/09/20 History Past Med/Surg History Medical History No pertinent past medical history Social History Smoking Status: Current every day smoker Tobacco Type: Cigarettes Preferred Language: Croatian Feels Safe at Home: Yes Physical Exam Physical Exam: On exam he is in obvious distress. He has a positive straight leg raise on the left negative on the right. He has a positive Lasegue's maneuver on the left. He has 4/5 left dorsiflexion compared to 5 5 on the right. Plantarflexion is also diminished on the left compared to the right. He has sensory deficits to cold and light touch the left lower extremity compared to the right. Results & Data Vital Signs (Past 12 Hours) Vital Signs Temp Pulse Pulse Resp BP BP Pulse Ox 05/09/20 14:10 105 H 20 139/96 96 05/09/20 13:34 98 H 20 126/85 96 05/09/20 12:42 37.2 C 110 H 18 153/105 H 95 Diagnostic Findings MRI lumbar spine dated 04/29/2020 performed at [facility] demonstrates evidence of central disc herniation L5-S1 with a free fragment migrating to the left and displacement of the traversing S1 nerve root. X-rays taken today in our office demonstrate evidence of 8 mm of retrolisthesis L5-S1. Code Status & VTE Plan VTE Prophylaxis Plan VTE Prophylaxis will be ordered: Yes
[2020-05-09] MEDS ORDERED: ONDANSETRON 4 MG OD TAB PO PRN (15:15)
[2020-05-09] MEDS ORDERED: LORazepam 1 MG TAB PO PRN (15:15)
[2020-05-09] MEDS ORDERED: ACETAMINOPHEN 500 MG TAB PO PRN (15:15)
[2020-05-09] MEDS ORDERED: PROMETHAZINE HCL 12.5 MG in SODIUM CHLORIDE 0.9% 50 ML IV PRN (15:15)
[2020-05-09] MEDS ORDERED: METOCLOPRAMIDE HCL INJ 5 MG/ML 2 ML VIAL IV PRN (15:15)
[2020-05-09] MEDS ORDERED: ONDANSETRON INJ 2 MG/ML 2 ML VIAL IV PRN (15:15)
[2020-05-09] MEDS ORDERED: LORazepam 1 MG/2 ML VIAL IV PRN (15:15)
[2020-05-09] MEDS: LACTATED RINGER'S 1,000 ML IV SCH (15:38)
[2020-05-09] MEDS: OXYCODONE HCL IR 5 MG TAB (IMMEDIATE RELEASE) PO PRN (15:41)
[2020-05-09 15:49] LABS: Basophils # (auto) 0.03 K/uL (0-0.2); Basophils % (auto) 0.4 %; Eosinophils # (auto) 0.23 K/uL (0-0.5); Eosinophils % (auto) 2.8 %; Hematocrit (blood only) 44.9 % (42-52); Immature Granulocytes # (auto) 0.05 K/uL (0.00-0.02); Immature Granulocytes % (auto) 0.6 %; Lymphocytes # (auto) 2.13 K/uL (1.2-3.4); Lymphocytes % (auto) 26.2 %; Mean Corpuscular Hemoglobin 30.5 pg (25-34); Mean Corpuscular Hgb Conc 35.6 g/dL (32-36); Mean Corpuscular Volume 85.7 fL (80-100); Mean Platelet Volume 10.3 fL (7.4-10.4); Monocytes # (auto) 0.58 K/uL (0.11-0.59); Monocytes % (auto) 7.1 %; Neutrophils % (auto) 62.9 %; Platelet Count 236 K/uL (130-400); RDW Coefficient of Variation 13.1 % (11.5-14.5); Red Blood Count 5.24 M/uL (4.7-6.1); White Blood Count 8.12 K/uL (4.8-10.8)
[2020-05-09 16:31] LABS: Albumin Level 3.6 gm/dl (3.4-5.0); BUN Creatinine Ratio 18.5 (10-20); Calcium 8.8 mg/dl (8.5-10.1); Est GFR (African American) 140.4; Est GFR (Non-African American) 121.1; Potassium 3.8 mmol/L (3.5-5.1)
[2020-05-09 16:35] LABS: Bilirubin,Total 0.3 mg/dl (0.2-1); Globulin 3.6 gm/dl (2.5-4.0); Total Protein 7.2 gm/dl (6.4-8.2)
[2020-05-09] MEDS: HYDROmorphone INJ 0.5 MG/0.5 ML SYR IV PRN ×2 (18:13→21:29)
--- NOTE | 2020-05-09 18:37 | Anesthesiology Consultation ---
Date of Service May 09, 2020 Assessment & Plan Chart Review Chart Review: Acceptable Risk for Surgery and Patient NOT seen in Pre Admission Testing no covid prescreen done. appeared to have a low risk covid screen per nursing intake assessment. will likely require rule. Consults Requested none History Surgery Operation Date: 05/10/20 10:25 Proposed Procedures p L5-S1 Decompression and Fusion with Instrumentation - Wei Rivera, Height/Weight Height: 5 ft 8 in Weight: 81.5 kg Allergies Allergy/AdvReac Type Severity Reaction Status Date / Time No Known Drug Allergies Allergy Unknown . Verified 05/09/20 13:22 Medications Home Medications Medication Instructions Recorded Confirmed Last Taken oxycodone 5 mg PO Q6H PRN #10 tab 05/02/20 05/09/20 05/02/20 gabapentin 300 mg PO QAM 05/09/20 05/09/20 05/08/20 meloxicam 15 mg PO QAM PRN 05/09/20 05/09/20 05/08/20 prednisone 40 mg PO QAM 05/09/20 05/09/20 05/08/20 Active Medications Generic Name Dose Route Start Last Admin Trade Name Freq PRN Reason Stop Dose Admin Hydromorphone HCl 1 mg 05/09/20 12:59 05/09/20 14:12 Dilaudid IV 05/23/20 12:58 1 mg Q30M PRN Administration Pain Hydromorphone HCl 0.5 mg 05/09/20 15:15 05/09/20 18:13 Dilaudid IV 05/23/20 15:14 0.5 mg Q3H PRN Administration moderate pain (scale 4-6) Hydromorphone HCl 1 mg 05/09/20 15:15 05/09/20 17:33 Dilaudid IV 05/23/20 15:14 1 mg Q3H PRN Administration severe pain (scale 7-10) Lactated Ringer's 1,000 mls @ 75 mls/hr 05/09/20 15:20 05/09/20 15:38 Lr IV 06/08/20 15:19 75 mls/hr .[id number] ANNE Administration Oxycodone HCl 5 - 10 mg 05/09/20 15:15 05/09/20 15:41 Roxicodone Immediate Rel PO 05/23/20 15:14 10 mg Q4H PRN Administration Moderate-Severe Pain Past Medical History Medical History (Updated 05/09/20 @ 18:38 by Flakito Robison MD) No pertinent past medical history Sciatica (Inactive) Past Surgical History Surgical History (Updated 05/09/20 @ 18:38 by Flakito Robison MD) History of esophagogastroduodenoscopy (EGD) Past Anesthesia History No Hx of Anesthesia Complications History of PONV No Hx of PONV and No Hx of Motion Sickness Social History Smoking Status: Current some day smoker tobacco type: cigarettes Do You Dip or Chew Tobacco: No alcohol intake frequency: holidays/special occasions only Hx Substance Use: No Physical Exam Vital Signs Last Vital Signs Temp 36.7 C 05/09/20 16:06 Pulse 89 05/09/20 16:06 Resp 16 05/09/20 16:06 BP 148/109 H 05/09/20 16:06 Pulse Ox 98 05/09/20 16:06 Testing Laboratory Results 05/09/20 15:25 05/09/20 15:25
[2020-05-10] MEDS: HYDROmorphone INJ 0.5 MG/0.5 ML SYR IV PRN ×4 (00:16→23:40)
[2020-05-10] MEDS: OXYCODONE HCL IR 5 MG TAB (IMMEDIATE RELEASE) PO PRN (02:12)
[2020-05-10] MEDS: HYDROmorphone INJ 1 MG/ML SYRINGE IV PRN ×5 (04:18→22:29)
[2020-05-10] MEDS: LACTATED RINGER'S 1,000 ML IV SCH ×4 (04:18→23:39)
[2020-05-10] MEDS ORDERED: CEFAZOLIN 2000MG 2,000 MG/15 ML SYR IV SCH (06:00)
[2020-05-10] MEDS: GABAPENTIN 300 MG CAP PO SCH (09:38)
[2020-05-10] MEDS ORDERED: DEXAMETHASONE SOD INJ 4 MG/ML VIAL ONE (10:17)
[2020-05-10] MEDS ORDERED: PROPOFOL IV EMULSION 10 MG/ML 20 ML VIAL IV ONE (10:17)
[2020-05-10] MEDS ORDERED: LARYING-O-JET KIT (LTA) ONE (10:17)
[2020-05-10] MEDS ORDERED: ONDANSETRON INJ 2 MG/ML 2 ML VIAL ONE (10:17)
[2020-05-10] MEDS ORDERED: fentaNYL citrate 100 MCG/2 ML VIAL ONE ×2 (10:17→10:18)
[2020-05-10] MEDS ORDERED: ROCURONIUM BROMIDE 10 MG/ML 5 ML VIAL IV ONE ×3 (10:17→12:49)
[2020-05-10] MEDS ORDERED: NEOSTIGMINE METHYLSULFATE 1 MG/ML 10ML VIAL ONE (10:17)
[2020-05-10] MEDS ORDERED: GLYCOPYRROLATE 0.2 MG/ML VIAL ONE (10:17)
[2020-05-10] MEDS ORDERED: ePHEDrine sulfate 50 MG/ML SYR ONE (10:17)
[2020-05-10] MEDS ORDERED: LIDOCAINE HCL 2% 2 ML VIAL/AMP(20MG/ML) INFIL ONE (10:17)
[2020-05-10] MEDS ORDERED: PHENYLEPHRINE 100MCG/ML 5ML SYR ONE (10:17)
[2020-05-10] MEDS ORDERED: MIDAZOLAM HCL 1 MG/ML 2ML VIAL ONE (10:18)
--- NOTE | 2020-05-10 10:43 | History & Physical Bridge Note ---
Date of Service May 10, 2020 History & Physical Bridge Note Patient continues to have significant decline in motor function involving the left lower extremity. Subsequently he is going to undergo emergent decompression and fusion L5-S1.
[2020-05-10] MEDS ORDERED: ePHEDrine sulfate 50 MG/ML AMP IV PRN (10:56)
[2020-05-10] MEDS ORDERED: ONDANSETRON INJ 2 MG/ML 2 ML VIAL IV PRN ×2 (10:56→14:55)
[2020-05-10] MEDS ORDERED: ATROPINE SULFATE 0.1 MG/ML 10ML SYR IV PRN (10:56)
[2020-05-10] MEDS ORDERED: HYDROmorphone INJ 2 MG/ML SYR/VIAL IV PRN (10:56)
[2020-05-10] MEDS ORDERED: fentaNYL citrate 100 MCG/2 ML VIAL IV PRN (10:56)
--- NOTE | 2020-05-10 10:58 | History & Physical Bridge Note ---
Date of Service May 10, 2020 History & Physical Bridge Note Please note the patient is 30 years old.
[2020-05-10] MEDS ORDERED: BACITRACIN INJ 50,000 UNIT VIAL ONE (10:59)
[2020-05-10] MEDS ORDERED: BUPIVACAINE/EPINEPHRINE 0.25% 1:200,000 30 ML VIAL ONE (10:59)
[2020-05-10] MEDS ORDERED: HYDROmorphone INJ 2 MG/ML SYR/VIAL ONE (11:49)
[2020-05-10] MEDS ORDERED: FLOSEAL HEMOSTATIC MATRIX 10ML TOP ONE (12:48)
--- NOTE | 2020-05-10 13:01 | Operative Report ---
Post Operative Report Pre & Post Diagnosis Operation Date: 05/10/20 10:25 Pre-Op Diagnosis: Lumbar disc herniation with neurologic deficit Post-Op Diagnosis: Lumbar disc herniation with neurologic deficit I identified the patient and participated in the time-out.: Yes Procedure Operation Date: 05/10/20 10:25 Actual Procedures #1 lumbar decompression with bilateral medial facetectomies and foraminotomies L5-S1. #2 posterior spinal fusion L5-S1. #3 placement posterior instrumentation L4 S1. #4 interbody fusion L5-S1 per #5 placed a peek cage 12 x 26 mm at L5-S1. #6 placement locally harvested morselized autograft in the posterior gutters. #7 placement infuse collagen sponge, master graft in the posterior lateral gutters and ostial amp and interbody space. Surgeon Wei Rivera, Lube Attendant Kike Adams Estimated Blood Loss 50 Findings Consistent with Post-Op Diagnosis Specimens None Indications This is a 30-year-old male that presents with marked decline in status with severe left leg pain and weakness. Subsequently he is here for urgent decompression fusion. Description of Procedure Patient was met with preoperatively case discussed all questions addressed. That point patient was taken back to the operative suite underwent an patient placed in a prone position the Tonny table on top of the Dalton frame. All bony prominences well-padded eyes inspected to ensure no external pressure placed upon them. This point the lumbar spine was prepped and draped in normal sterile fashion. Sharp dissection with assistance of Bovie cautery was performed down to and exposing the lamina and transverse processes of L5 and sacral ala bilaterally. From a caudal cephalad fashion complete laminectomy L5 was performed including medial facetectomies and foraminotomies as well as addressing a massive free fragment of disc material that migrated caudally on the left. After complete decompression pedicle screws were placed in L5 and S1 levels bilaterally with assistance of fluoroscopy and appropriately sized cecy placed. By way of a trans-foraminal approach and left complete discectomy was performed endplates curetted to subcortical bleeding bone and a 12 x 26 mm peek cage filled with osteo-bone graft tapped in position. The rods were then locked into final position bilaterally. The transverse processes of L5 and sacral ala burred to subcortical bleeding bone. Infuse collagen sponge master graft local autograft was placed in the posterior lateral gutters. 15 round LAVINIA drain inserted. Incision was then closed with 1 Vicryl in the fascia 2-0 Vicryl subcutaneously and 4 Monocryl for final skin closure. Steri-Strip sterile dressings placed. Patient will continue pain stable condition. Please note Kike Adams was present at the entire procedure involved the patient positioning complex portions of the surgery and final skin closure. I attest to the content of the Intraoperative Record and any orders documented therein. Any exceptions are noted below.
--- NOTE | 2020-05-10 13:09 | Fluoroscopy Report ---
FL lumbar spine 2-3V CLINICAL HISTORY: L5-S1 DECOMPRESSION/FUSION COMPARISON STUDY: Lumbar spine 05/02/2020. FLUOROSCOPY TIME: 17 seconds. FINDINGS: 2 fluoroscopic spot images of the lower lumbar spine demonstrate posterior decompression an d fusion at L5-S1 with pedicle screws and rods. The hardware appears intact. IMPRESSION: L5-S1 posterior decompression and fusion. ACT 112: Negative or not required by law. Electronically signed by: Tani Harkins M.D. 05/10/2020 1:07 PM
--- NOTE | 2020-05-10 14:06 | Anesthesiology Progress Note ---
Date of Service May 10, 2020 Anesthesia Post Procedure Vital Signs Vital Signs: Temp Pulse Pulse Pulse Resp BP BP 05/10/20 14:00 68 14 144/93 H 05/10/20 13:50 73 16 143/95 H 05/10/20 13:41 36.5 C 68 16 122/82 05/10/20 10:49 36.6 C 92 H 18 152/102 H 05/10/20 07:50 36.5 C 61 16 147/90 H 05/09/20 22:55 36.7 C 72 16 152/95 H 05/09/20 16:06 36.7 C 89 16 148/109 H 05/09/20 15:02 36.7 C 80 20 166/104 H 05/09/20 14:36 102 H 20 161/101 H 05/09/20 14:10 105 H 20 139/96 Pulse Ox 05/10/20 14:00 93 05/10/20 13:50 100 05/10/20 13:41 97 05/10/20 10:49 99 05/10/20 07:50 98 05/09/20 22:55 98 05/09/20 16:06 98 05/09/20 15:02 95 05/09/20 14:36 98 05/09/20 14:10 96 Pain Intensity Left Leg: Pain Intensity: 10 Lower Back: Pain Intensity: 8 Transfer of Care Handoff Completed per policy Notes Mental Status: alert / awake / arousable and participated in evaluation Patient Amnestic to Procedure: Yes Nausea / Vomiting: adequately controlled Pain: adequately controlled Airway Patency, RR, SpO2: stable & adequate BP & HR: stable & adequate Hydration State: stable & adequate Anesthetic Complications: no major complications apparent and Pt Satisfied with anesthetic care
[2020-05-10] MEDS ORDERED: bisacodyL 10 MG SUPP PR PRN (14:55)
[2020-05-10] MEDS ORDERED: NALOXONE HCL 0.4 MG/1 ML VIAL/CARP IV PRN (14:55)
[2020-05-10] MEDS ORDERED: SOD PHOSPHATE/SOD BIPHOSPHATE ENEMA 132 ML BTL PR PRN (14:55)
[2020-05-10] MEDS ORDERED: DO NOT ADMINISTER PNEUMOCOCCAL VACCINE PRN (14:55)
[2020-05-10] MEDS ORDERED: ACETAMINOPHEN 500 MG TAB PO PRN (14:55)
[2020-05-10] MEDS ORDERED: PROMETHAZINE HCL 12.5 MG in SODIUM CHLORIDE 0.9% 50 ML IV PRN (14:55)
[2020-05-10] MEDS ORDERED: FAMOTIDINE 20 MG TAB PO PRN (14:55)
[2020-05-10] MEDS ORDERED: ACETAMINOPHEN 1,000 MG/100 ML VIAL IV PRN (14:55)
[2020-05-10] MEDS ORDERED: OXYCODONE HCL IR 5 MG TAB (IMMEDIATE RELEASE) PO PRN (14:55)
[2020-05-10] MEDS ORDERED: DO NOT ADMINISTER FLU VACCINE PRN (14:55)
[2020-05-10] MEDS ORDERED: LORazepam 0.5 MG TAB PO PRN (14:55)
[2020-05-10] MEDS ORDERED: ALUMINUM/MAGNESIUM SUSP 30 ML UDC PO PRN (14:55)
[2020-05-10] MEDS ORDERED: MAGNESIUM HYDROXIDE SUSP 30 ML UDC PO PRN (14:55)
[2020-05-10] MEDS ORDERED: METOCLOPRAMIDE HCL INJ 5 MG/ML 2 ML VIAL IV PRN (14:55)
[2020-05-10] MEDS ORDERED: ONDANSETRON 4 MG OD TAB PO PRN (14:55)
[2020-05-10] MEDS ORDERED: LORazepam 0.5 MG/1 ML VIAL IV PRN (14:55)
[2020-05-10] MEDS ORDERED: TRAMADOL HCL 50 MG TABLET PO PRN (14:55)
[2020-05-10] MEDS: KETOROLAC 30 MG/ML VIAL IV SCH ×2 (16:09→21:27)
[2020-05-10] MEDS: CEFAZOLIN 2000MG 2,000 MG/15 ML SYR IV SCH (18:41)
[2020-05-10] MEDS: DOCUSATE SODIUM/SENNA 50/8.6MG TAB PO SCH (21:27)
[2020-05-11] MEDS: KETOROLAC 30 MG/ML VIAL IV SCH ×2 (04:01→09:31)
[2020-05-11] MEDS: CEFAZOLIN 2000MG 2,000 MG/15 ML SYR IV SCH (04:01)
[2020-05-11] MEDS: POLYETHYLENE (MIRALAX) 17 GM PACK PO SCH ×3 (05:45→17:12)
[2020-05-11] MEDS: LACTATED RINGER'S 1,000 ML IV SCH ×3 (05:45→18:32)
[2020-05-11 06:01] LABS: Eosinophils # (auto) 0.01 K/uL (0-0.5); Eosinophils % (auto) 0.1 %; Hematocrit (blood only) 39.9 % (42-52); Hemoglobin 13.8 g/dL (14.0-18.0); Immature Granulocytes # (auto) 0.04 K/uL (0.00-0.02); Immature Granulocytes % (auto) 0.3 %; Lymphocytes # (auto) 1.02 K/uL (1.2-3.4); Lymphocytes % (auto) 8.6 %; Mean Corpuscular Hemoglobin 29.7 pg (25-34); Mean Corpuscular Hgb Conc 34.6 g/dL (32-36); Mean Platelet Volume 10.2 fL (7.4-10.4); Monocytes # (auto) 1.08 K/uL (0.11-0.59); Monocytes % (auto) 9.1 %; Neutrophils # (auto) 9.77 K/uL (1.4-6.5); Neutrophils % (auto) 81.9 %; Platelet Count 220 K/uL (130-400); RDW Coefficient of Variation 12.9 % (11.5-14.5); RDW Standard Deviation 40.6 fL (36.4-46.3); Red Blood Count 4.64 M/uL (4.7-6.1); White Blood Count 11.92 K/uL (4.8-10.8)
[2020-05-11 06:27] LABS: BUN Creatinine Ratio 15.4 (10-20); Calcium 8.2 mg/dl (8.5-10.1); Creatinine Clr Calc Pharmacy 121.5 ml/min; Est GFR (African American) 134.9; Est GFR (Non-African American) 116.4
[2020-05-11] MEDS: GABAPENTIN 300 MG CAP PO SCH (09:30)
--- NOTE | 2020-05-11 09:51 | Orthopedic Progress Note ---
Date of Service May 11, 2020 Assessment & Plan (1) Lumbar disc herniation with radiculopathy: This time we will continue physical therapy monitor his LAVINIA output anticipate discharge home in the next few days. Admission and Anticipated Discharge Date Admission Date: May 09, 2020 Subjective Back pain controlled leg symptoms markedly improved. Physical Exam Physical Exam: Patient is ambulating halls. Is excellent strength testing. Results & Data ([facility]) Vital Signs (Past 12 Hours) Vital Signs Temp Pulse Pulse Resp BP BP Pulse Ox 05/11/20 08:04 36.8 C 77 18 157/89 H 96 05/11/20 03:22 36.9 C 87 14 110/65 96 05/10/20 23:31 36.7 C 89 18 150/91 H 95
[2020-05-11] MEDS: HYDROmorphone INJ 0.5 MG/0.5 ML SYR IV PRN (18:31)
[2020-05-11] MEDS: OXYCODONE HCL IR 5 MG TAB (IMMEDIATE RELEASE) PO PRN (20:16)
[2020-05-11] MEDS: DOCUSATE SODIUM/SENNA 50/8.6MG TAB PO SCH (20:17)
[2020-05-12] MEDS: POLYETHYLENE (MIRALAX) 17 GM PACK PO SCH ×2 (00:16→05:21)
[2020-05-12] MEDS: OXYCODONE HCL IR 5 MG TAB (IMMEDIATE RELEASE) PO PRN ×5 (01:13→17:43)
[2020-05-12] MEDS: LACTATED RINGER'S 1,000 ML IV SCH (09:37)
[2020-05-12] MEDS: GABAPENTIN 300 MG CAP PO SCH (09:37)
[2020-05-12] MEDS: DEXAMETHASONE SOD PHOSPHATE 8 MG in SYRINGE 0 ML IV SCH (09:37)
--- NOTE | 2020-05-12 11:17 | Orthopedic Progress Note ---
Date of Service May 12, 2020 Assessment & Plan (1) Lumbar disc herniation: This time continue physical therapy monitor his LAVINIA output anticipate discharge home tomorrow. Present on Admission?: Yes Admission and Anticipated Discharge Date Admission Date: May 09, 2020 Subjective Back pain controlled leg symptoms markedly improved. Physical Exam Physical Exam: Patient is in the chair at the bedside. Is good strength testing. Appears comfortable. Results & Data ([facility]) Vital Signs (Past 12 Hours) Vital Signs Temp Pulse Pulse Resp BP Pulse Ox 05/12/20 07:57 36.7 C 98 H 18 146/91 H 97 05/12/20 00:20 37.0 C 90 14 121/79 96
[2020-05-12] MEDS: DOCUSATE SODIUM/SENNA 50/8.6MG TAB PO SCH (20:50)
[2020-05-13] MEDS: OXYCODONE HCL IR 5 MG TAB (IMMEDIATE RELEASE) PO PRN ×2 (03:00→08:15)
[2020-05-13] MEDS: GABAPENTIN 300 MG CAP PO SCH (08:08)
--- NOTE | 2020-05-13 09:35 | Discharge Summary ---
Date of Service May 13, 2020 Admission HPI Per Admitting Provider This is a 3-year-old male that presents with approximately 2 months of back and left leg symptoms that are intermittent in nature. Unfortunately the past 2 weeks he had dramatic severe decline in status with pain radiating into the left buttock posterior thigh below the knee into the heel. The right lower extremity is relatively asymptomatic. He has been unable to work for past 2 weeks. He has been in and out of his doctor's office as well as the ER for pain control. He notes pain shooting into his groin with intermittent numbness in the perineal area. He has significant strength deficits with weakness affecting the left plantar flexion and breakaway pain. Principal Diagnosis Lumbar disc herniation with radiculopathy Discharge Data Allergies Allergy/AdvReac Type Severity Reaction Status Date / Time No Known Drug Allergies Allergy Unknown . Verified 05/09/20 13:22 Consultations 05/09/20 14:35 Consult Anesthesiology Routine 05/10/20 14:55 Consult Case Management - Discharge Planning Routine Procedures Performed Operation Date: 05/10/20 10:25 Actual Procedures p L5-S1 Decompression and Fusion with Instrumentation(Not Applicable) - Wei Rivera DO Ordered Studies 05/10/20 11:00 FL fluoroscopy <1hr Routine [place] lumbar spine 2-3V Routine Hospital Course (1) Lumbar disc herniation with radiculopathy: Patient was admitted to hospital severe radiculopathy and motor deficit. He subsequently underwent surgery the next day tolerated as well and postoperatively was up and ambulating LAVINIA drain decreasing probably. Excellent strength testing. Subsequent discharge home. Discharge orders and instructions found the chart for further review. Total Time Total Time Spent Total Time Spent (In Minutes): 20 minutes Discharge Plan Discharge Items Patient Disposition: Home - Self-Care Reason For Visit: LUMBAR DISC HERNIATION WITH NEUROLOGIC DEFICIT Discharge Diagnosis: Lumbar discrimination with neurologic deficit Condition on Discharge: Good Activity: As commented below Non-emergency contact: Primary Care Provider Call non-emergency contact if: you have any medication questions Follow-up/Referrals: Bhavana Razo DO [Primary Care Provider] - Diet: Regular Addtl Attending Provider Instructions: ACTIVITY RECOMMENDATIONS: SELF CARE INSTRUCTIONS AFTER THORACIC/LUMBAR FUSIONS 1. You may walk to your tolerance. It is good exercise for your legs and back. Expect some back and intermittent leg aches and pains. 2. You may perform "counter-top" level activities (make a sandwich, doug with a project, etc.). 3. No bending or lifting of more than 10 pounds or back twisting of any nature (roll like a log when turning in bed). 4. You may ride in a car for 20-30 minutes at a time. No driving until after your first visit with your doctor. 5. Frequent changes of position and restricting sitting to 30 minutes at a time will help limit the amount of back spasms and stiffness you may experience. 6. You may discontinue the use of ambulatory aids (cane, crutches, etc.) once your strength and confidence allow. 7. You may nurse informaticist the shower and let water strike your incision when you arrive home at least once daily. Do not take a tub bath, sit in a hot tub or go into a swimming pool until after your first recheck in the office. SPECIAL CARE INSTRUCTIONS: VERY IMPORTANT TO READ AND REVIEW A. Your surgical incision has been closed with a cosmetic suture under the skin that will dissolve in about 6 weeks. In 14 days, you can use a pair of clean scissors and cut the suture that is left outside of the skin at the ends of your incision. 1. The small skin tapes can be removed 7 days after surgery if they have not fallen off by that point. 2. You may keep the wound open to air as much as possible to promote healing after post-op day number 5 unless told otherwise by your doctor. 3. If you think the wound looks like it is becoming infected (redness or worsening drainage) and/or you are experiencing fever, chill or worsening back pain and muscle spasms, contact the office so that we may evaluate you as soon as possible. B. Complications are uncommon, but please contact us if you have any signs or symptoms of: 1. wound infection (fever higher than 102.5 degrees F, redness, separation of wound, drainage, or increasing pain from the incision) 2. blood clots in legs (pain, swelling, redness and warmth in legs) 3. urinary tract infection (fever higher than 102.5 degrees F, burning upon urination or increased frequency of urination) 4. nerve problems (inability to walk on your toes or heels, numbness, loss of bowel or bladder control) 5. any other symptoms that concern you C. Please call the office at if you have any concerns or qu estions about your operation or recovery. D. No smoking! Smoking drastically decreases the chance of a solid fusion. E. Do not take any anti-inflammatory medications (Indocin, Advil, Motrin, Aspirin, Naprosyn, etc.) as these may inhibit the chance of a solid fusion. Tylenol is okay to take for pain. MANAGING PAIN AFTER SPINAL SURGERY 1. Narcotic medication is intended for short-term use and will be provided for surgical pain. Surgical pain usually lasts for a period of 4-6 weeks. Narcotic medication includes Percocet, Vicodin, Darvocet, Tylenol #3 or Lortab. 2. Longer-term pain is more appropriately treated with non-narcotic medication such as Tylenol ES. 3. Muscle spasm is not appropriately treated with narcotics. Muscle relaxers such as Soma, Flexeril or Skelaxin can be used along with Tylenol ES. 4. Remember that we all live with some "aches and pains". This is not unusual or uncommon after an injury or as we get older. a. Back pain is expected and may include muscle spasms for 4 to 6 weeks after surgery. The pain should gradually improve. If the pain worsens for no apparent reason, please contact the office. b. Intermittent leg pain may also be experienced and should not be concerned about unless it worsens for no apparent reason. If so, please contact the office. 5. We will provide appropriate medication within the normal guidelines of their prescribed use. We will also be very cautious and aware of potential abuse and extended duration of patients' medication needs. a. Pain medications are for your comfort and to assist with sleep and rest so that the tissue can heal. They are not provided in order to return to normal activity and should not be used through the day. To do so or worsening pain at night can result from ongoing tissue damage and development of tolerance to the prescribed medicine. 6. Please allow 2-3 days to process refills. Prescriptions will not be mailed but must be picked up at the office. FOLLOW UP VISIT: Keep your scheduled follow-up appointment. Any questions, please call the office at . Pending Studies at Discharge: No Stand-Alone Forms: [employer], Smoking Cessation Medications and DC Order Prescriptions: New tramadol 50 mg tablet 50 mg PO Q6H PRN (Reason: pain, moderate) Qty: 30 RF: 0 oxycodone 5 mg tablet 5 mg PO Q6H PRN (Reason: pain, severe) Qty: 30 RF: 0 Continued oxycodone 5 mg tablet 5 mg PO Q6H PRN (Reason: pain) Qty: 10 RF: 0 meloxicam 15 mg tablet 15 mg PO QAM PRN (Reason: Pain) RF: 0 gabapentin 300 mg capsule 300 mg PO QAM RF: 0 Discontinued prednisone 20 mg tablet 40 mg PO QAM RF: 0 Discharge Orders: Discharge Order (Routine); Ordered 05/13/20 Ordered By: Wei Rivera Admission Data Admit Date/Time: 05/09/20 14:03 Attending Provider: Wei Rivera Admit Provider: Wei Rivera Primary Care Provider: Bhavana Razo Other Providers: Herb Merchant
[2020-05-13] MEDS: DEXAMETHASONE SOD PHOSPHATE 8 MG in SYRINGE 0 ML IV SCH (10:14)
== END 2020-05-13 12:37 | disposition home or self-care (01) | DRG 455 ==
LOC: ED 12:41 → 3W 14:03